=== PATIENT | male | born 1955 | race African-American/Black ===

== ENCOUNTER 2016-07-04 19:51 | Inpatient (IN) | payer OTHER ==
--- NOTE | 2016-07-04 20:10 | HP ---
COWS - Scale Resting Pulse: 0= [place] 80 or Below Sweatin=Flushed/Facial Moisture Restless Observation: 3= Extraneous Movement Pupil Size: 1= Pupils >than Normal Bone or Joint Aches: 2= Severe Diffuse Aches Runny Nose/ Eye Tearin= Runny Nose/Eyes GI Upset > 30mins: 1= Stomach Cramp Tremor Observation: 1= Tremor [place], Not Seen Yawning Observation: 1= 1-2x During Session Anxiety or Irritability: 1=Feels Anxious/Irritable Goose Flesh Skin: 3=Piloerection COWS Score: 17 Admission ROS S - HPI Chief Complaint: WITHDRAWAL SYMPTOMS Allergies/Adverse Reactions: Allergies Allergy/AdvReac Type Severity Reaction Status Date / Time Penicillins Allergy Mild Difficulty Verified 06/03/15 16:46 Breathing Fish Containing Products Allergy Rash Verified 06/03/15 16:46 [Fish Product Derivatives] History of Present Illness: 61 Y.O. MAN WITH AN EXTENSIVE HISTORY OF OPIOID DEPENDENCE IS HERE SEEKING DETOX. HE WAS LAST HERE IN 06/2015 AND REPORTS HIS LONGEST PERIOD CLEAN HAS BEEN 4 YEARS. - Ebola screening Have you traveled outside of the country in the last 21 days: No Have you had contact with anyone from an Ebola affected area: No Do you have a fever: No - Review of Systems Constitutional: Loss of Appetite, Changes in sleep EENT: reports: Tearing Respiratory: reports: Shortness of Breath Cardiac: reports: No Symptoms Reported GI: reports: No Symptoms Reported : reports: No Symptoms Reported Musculoskeletal: reports: Back Pain, Other (PAIN TO B/L THIGHS) Neuro: reports: Tingling (B/L FINGERTIPS) Endocrine: reports: No Symptoms Reported Hematology: reports: No Symptoms Reported Psychiatric: reports: Orientated x3, Depressed Other Systems: Reviewed and Negative Patient History - Patient Medical History Hx Anemia: No Hx Asthma: Yes Hx Chronic Obstructive Pulmonary Disease (COPD): No Hx Cancer: No Hx Cardiac Disorders: No Hx Congestive Heart Failure: No Hx Hypertension: No Hx Hypercholesterolemia: No Hx Pacemaker: No HX Cerebrovascular Accident: No Hx Seizures: No Hx Dementia: No Hx Diabetes: No Hx Gastrointestinal Disorders: Yes (acid reflux) Hx Liver Disease: No Hx Genitourinary Disorders: No Hx Sexually Transmitted Disorders: No Hx Renal Disease (ESRD): No Hx Thyroid Disease: No Hx Human Immunodeficiency Virus (HIV): Yes (since 2004) Hx Hepatitis C: Yes (NOT TREATED) Hx Depression: Yes Hx Suicide Attempt: No Hx Bipolar Disorder: Yes Hx Schizophrenia: No - Patient Surgical History Past Surgical History: Yes Hx Neurologic Surgery: No Hx Cataract Extraction: No Hx Cardiac Surgery: No Hx Lung Surgery: No Hx Breast Surgery: No Hx Breast Biopsy: No Hx Abdominal Surgery: No Hx Appendectomy: Yes (at age of 5) Hx Cholecystectomy: No Hx Genitourinary Surgery: No Hx Section: No Hx Orthopedic Surgery: No Anesthesia Reaction: No - PPD History Previous Implant?: Yes Documented Results: Negative w/proof Implanted On Prior R Admission?: Yes Date: 06/05/15 Results: 0 PPD to be Administered?: Yes - Reproductive History Patient is a Female of Child Bearing Age (11 -55 yrs old): No - Smoking Cessation Smoking history: Current every day smoker Have you smoked in the past 12 months: Yes Aproximately how many cigarettes per day: 20 Hx Chewing Tobacco Use: No Initiated information on smoking cessation: Yes 'Breaking Loose' booklet given: 07/04/16 - Substance & Tx. History Hx Alcohol Use: No Hx Substance Use: Yes Substance Use Type: Cocaine, Heroin Hx Substance Use Treatment: Yes (DETOX AND REHAB ) - Substances Abused Heroin Route: Injection Frequency: Daily Amount used: 3 BAGS Age of first use: 15 Date of Last Use: 07/04/16 Cocaine Route: Injection Frequency: Daily Amount used: $50 Age of first use: 20 Date of Last Use: 07/04/16 Family Disease History - Family Disease History Family Disease History: CA: Father (RECTAL ), Mother ( ) Admission Physical Exam BHS - Vital Signs Vital Signs: Last Vital Signs Temp Pulse Resp BP Pulse Ox 99.3 F 78 18 146/66 07/04/16 20:11 07/04/16 20:11 07/04/16 20:11 07/04/16 20:11 - Physical General Appearance: Yes: Appropriately Dressed, Thin, Anxious HEENTM: Yes: Normocephalic, Normal Voice Respiratory: Yes: Chest Non-Tender, Lungs Clear, Normal Breath Sounds, No Respiratory Distress, No Accessory Muscle Use Neck: Yes: No masses,lesions,Nodules, Trachea in good position Breast: Yes: Breast Exam Deferred Cardiology: Yes: Regular Rhythm, Regular Rate Abdominal: Yes: Flat, Soft Genitourinary: Yes: Other (NO COMPLAINTS REPORTED) Back: Yes: Normal Inspection Musculoskeletal: Yes: Back pain Extremities: Yes: Normal Inspection, Normal Range of Motion, Non-Tender Neurological: Yes: buyer grain II-XII NML intact, Fully Oriented, Alert, Normal Mood/ Affect, Normal Response Integumentary: Yes: Track [place] Lymphatic: Yes: Within Normal Limits - Diagnostic (1) Cocaine dependence Current Visit: Yes Status: Chronic Qualifiers: Substance use status: uncomplicated Qualified Code(s): F14.20 - Cocaine dependence, uncomplicated (2) GERD (gastroesophageal reflux disease) Current Visit: Yes Status: Chronic (3) HIV disease Current Visit: Yes Status: Chronic (4) Hepatitis C Current Visit: Yes Status: Chronic Qualifiers: Viral hepatitis chronicity: unspecified Hepatic coma status: without hepatic coma Qualified Code(s): B19.20 - Unspecified viral hepatitis C without hepatic coma (5) Nicotine dependence Current Visit: Yes Status: Chronic Qualifiers: Nicotine product type: unspecified Substance use status: uncomplicated Qualified Code(s): F17.200 - Nicotine dependence, unspecified, uncomplicated (6) Opioid dependence with withdrawal Current Visit: Yes Status: Chronic Cleared for Admission S - Detox or Rehab S Level of Care: Medically Managed Detox Regimen/Protocol: Methadone (0) BHS Breath Alcohol Content Breath Alcohol Content: 0
[2016-07-04 20:13] VITALS: BMI 23.1
[2016-07-04] MEDS ORDERED: ACETAMINOPHEN 325 MG TABLET (FP) PO PRN (20:29)
[2016-07-04] MEDS ORDERED: METHADONE HCL 10 MG TABLET (FOR DETOX USE ONLY) PO ONE ×2 (20:29→23:00)
[2016-07-04] MEDS ORDERED: P-EPHED 60MG/TRIPROLIDI 2.5MG TABLET PO PRN (20:29)
[2016-07-04] MEDS ORDERED: MAGNESIUM CITRATE 300 ML BOTTLE PO PRN (20:29)
[2016-07-04] MEDS ORDERED: MAG HYDROX/AL HYDROX/SIMETH 30 ML UNIT-DOSE CUP PO PRN (20:29)
[2016-07-04] MEDS ORDERED: guaiFENesin/D-METHORPHAN HB 10 ML UNIT-DOSE CUPS PO PRN (20:29)
[2016-07-04] MEDS ORDERED: LOPERAMIDE HCL 2 MG CAPSULE PO PRN (20:29)
[2016-07-04] MEDS ORDERED: MENTHOL/PHENOL 1 EACH UD MM PRN (20:29)
[2016-07-04] MEDS ORDERED: IBUPROFEN 400 MG TABLET (FP) PO PRN (20:29)
[2016-07-04] MEDS ORDERED: MAGNESIUM HYDROX 2400MG/30ML ORAL SUSPENSION 30 ML CUP PO PRN (20:29)
[2016-07-04] MEDS ORDERED: hydrOXYzine PAMOATE 50 MG CAPSULE (FP) PO PRN (20:29)
[2016-07-04] MEDS ORDERED: ALBUTEROL SO4 18 GM HFA INHALER IH PRN (20:32)
[2016-07-04] MEDS: diphenhydrAMINE HCL 50 MG CAPSULE PO PRN (21:57)
[2016-07-04] MEDS: THIAMINE HCL 100 MG TABLET (FP) PO SCH (21:58)
[2016-07-04] MEDS: diazePAM 5 MG TABLET PO PRN (21:58)
[2016-07-04] MEDS: DARUNAVIR ETHANOLATE 800 MG TAB PO SCH (21:58)
[2016-07-04] MEDS: EMTRICITABINE 200MG/TENOFOVIR 300MG PO SCH (23:45)
[2016-07-04] MEDS: RITONAVIR 100 MG TABLET PO SCH (23:45)
[2016-07-05] MEDS: RITONAVIR 100 MG TABLET PO SCH ×2 (00:14→22:06)
[2016-07-05] MEDS: EMTRICITABINE 200MG/TENOFOVIR 300MG PO SCH ×2 (00:14→22:06)
--- NOTE | 2016-07-05 08:36 | CONSULT ---
[facility] Psychiatric Consult - Data Date of interview: 07/05/16 Admission source: [facility] Identifying data: This is 61 years old male with no psychiatric hospitalization history intoxicated with Cocaine, Opioiuds, Xanax and Nicotine Substance Abuse History: Smoking history: Current every day smoker. Have you smoked in the past 12 months: Yes. Aproximately how many cigarettes per day: 20. Hx Chewing Tobacco Use: No. Initiated information on smoking cessation: Yes. 'Breaking Loose' booklet given: 07/04/16. - Substance & Tx. History. Hx Alcohol Use: No. Hx Substance Use: Yes. Substance Use Type: Cocaine, Heroin. Hx Substance Use Treatment: Yes (DETOX AND REHAB ). - Substances Abused. Heroin. Route: Injection. Frequency: Daily. Amount used: 3 BAGS. Age of first use: 15. Date of Last Use: 07/04/16. Cocaine. Route: Injection. Frequency: Daily. Amount used: $50. Age of first use: 20. Date of Last Use: 07/04/16 Medical History: GERD, MMTP history, HepC+, hiv, Asthma Psychiatric History: Patient reports history of MDD, reports taking prior to admissiomn: Seroquel 50mg po qhs Physical/Sexual Abuse/Trauma History: Denies Additional Comment: Seroquel 50mg po qhs Mental Status Exam - Mental Status Exam Alert and Oriented to: Person Cognitive Function: Fair Patient Appearance: Unkempt Mood: Sad Affect: Flat Patient Behavior: Sedated Speech Pattern: Delayed Voice Loudness: Mildly Soft/Quiet Thought Process: Circumstantial Thought Disorder: Being Controlled Hallucinations: Denies Suicidal Ideation: Denies Homicidal Ideation: Denies Insight/Judgement: Fair Sleep: Difficulty falling asleep Appetite: Fair Muscle strength/Tone: Mild Hypotonicity Gait/Station: Shuffling Additional Comments: Seroquel 50mg po qhs Psychiatric Findings - Problem List ([place] 1, 2,3) (1) Cocaine dependence Current Visit: Yes Status: Chronic Qualifiers: Substance use status: uncomplicated Qualified Code(s): F14.20 - Cocaine dependence, uncomplicated (2) Nicotine dependence Current Visit: Yes Status: Chronic Qualifiers: Nicotine product type: unspecified Substance use status: uncomplicated Qualified Code(s): F17.200 - Nicotine dependence, unspecified, uncomplicated (3) Opioid dependence with withdrawal Current Visit: Yes Status: Chronic (4) Alcohol dependence with uncomplicated withdrawal Current Visit: No Status: Acute (5) Mood disorder Current Visit: No Status: Acute (6) Opioid dependence on agonist therapy Current Visit: No Status: Acute (7) Sedative, hypnotic or anxiolytic abuse Current Visit: No Status: Acute (8) Major depressive disorder Current Visit: No Status: Chronic (9) Methadone maintenance therapy patient Current Visit: No Status: Chronic - Initial Treatment Plan Initial Treatment Plan: Seroquel 50mg po qhs
[2016-07-05] MEDS ORDERED: METHADONE HCL 10 MG TABLET (FOR DETOX USE ONLY) PO ONE (10:00)
[2016-07-05 10:11] LABS: URINE APPEARANCE CLEAR; URINE BILIRUBIN NEGATIVE (NEGATIVE); URINE BLOOD NEGATIVE (NEGATIVE); URINE COLOR YELLOW; URINE GLUCOSE (UA) NEGATIVE (NEGATIVE); URINE KETONE NEGATIVE (NEGATIVE); URINE LEUK ESTERASE NEGATIVE (NEGATIVE); URINE NITRITE NEGATIVE (NEGATIVE); URINE PROTEIN NEGATIVE (NEGATIVE); URINE UROBILINOGEN 2.0 E.U/dl E.U./dl (0.2-1.0)
[2016-07-05 10:13] LABS: MCH 31.8 pg (25.7-33.7); MCHC 34.9 g/dl (32.0-35.9); MEAN CELL VOLUME 91.1 fl (80-96); MEAN PLT VOLUME 7.6 fl (7.5-11.1); PLATELET COUNT 153 K/MM3 (134-434); RDW 12.7 % (11.9-15.9); WHITE BLOOD COUNT 3.1 K/mm3 (4.0-10.0)
[2016-07-05 10:39] LABS: ALBUMIN 2.9 g/dl (3.4-5.0); ALK PHOS 84 U/L (45-117); ANION GAP 6 (8-16); BILIRUBIN,TOTAL 0.5 mg/dL (0.2-1.0); CALCIUM 8.1 mg/dL (8.5-10.1); CO2 30 mmol/L (21-32); COCKROFT - GAULT 62.15; CREATININE 1.2 mg/dL (0.7-1.3); GLUCOSE,RANDOM 75 mg/dL (74-106); SGOT/AST 45 U/L (15-37); SGPT/ALT 28 U/L (12-78); TOT PROT 6.9 g/dl (6.4-8.2)
[2016-07-05] MEDS: RANITIDINE HCL 150 MG TABLET (FP) PO SCH (11:09)
[2016-07-05] MEDS: PRENATAL VITAMINS W/ FOLIC ACID TABLET (FP) PO SCH (11:10)
[2016-07-05] MEDS: NICOTINE 21 MG/24 HOURS TOPICAL PATCH TD SCH (11:11)
--- NOTE | 2016-07-05 11:34 | PN ---
BHS COWS - Scale Resting Pulse: 1= [place] 81-100 Sweatin=Flushed/Facial Moisture Restless Observation: 0= Sits Still Pupil Size: 0= Normal to Room Light Bone or Joint Aches: 2= Severe Diffuse Aches Runny Nose/ Eye Tearin= None GI Upset > 30mins: 1= Stomach Cramp Tremor Observation of Outstretched Hands: 2= Slight Tremor Visible Yawning Observation: 2= >3x During Session Anxiety or Irritability: 2=Irritable/Anxious Goose Flesh Skin: 0=Smooth Skin COWS Score: 12 S Progress Note (SOAP) Subjective: sleepy tired sweats agitation interrupted sleep Objective: 07/05/16 11:32 Vital Signs Temperature 98.1 F 07/05/16 09:29 Pulse Rate 88 07/05/16 09:29 Respiratory Rate 16 07/05/16 09:29 Blood Pressure 151/92 07/05/16 09:29 O2 Sat by Pulse Oximetry (%) Laboratory Tests 07/05/16 07/05/16 07/05/16 07:00 07:00 08:00 WBC 3.1 L RBC 4.62 Hgb 14.7 D Hct 42.1 MCV 91.1 MCHC 34.9 RDW 12.7 Plt Count 153 MPV 7.6 D Sodium 142 Potassium 3.8 Chloride 106 Carbon Dioxide 30 Anion Gap 6 L BUN 16 Creatinine 1.2 Creat Clearance w eGFR > 60 Random Glucose 75 Calcium 8.1 L Total Bilirubin 0.5 D AST 45 H D ALT 28 Alkaline Phosphatase 84 D Total Protein 6.9 Albumin 2.9 L Urine Color Yellow Urine Appearance Clear Urine pH 6.0 Urine Protein Negative Urine Glucose (UA) Negative Urine Ketones Negative Urine Blood Negative Urine Nitrite Negative Urine Bilirubin Negative Urine Urobilinogen 2.0 e.u/dl Ur Leukocyte Esterase Negative awake/alert ambulating no acute distress Assessment: 07/05/16 11:33 withdrawal sx Plan: continue detox increase fluids
--- NOTE | 2016-07-05 17:36 | EKG ---
Test Reason : Blood Pressure : / mmHG Vent. Rate : 065 BPM Atrial Rate : 065 BPM P-R Int : 148 ms QRS Dur : 086 ms QT Int : 430 ms P-R-T Axes : 070 060 033 degrees QTc Int : 447 ms NORMAL SINUS RHYTHM NORMAL ECG NO PREVIOUS ECGS AVAILABLE Confirmed by FINN MATHIS MD ([id number]) on 07/05/2016 5:36:19 PM Referred By: Confirmed By:FINN MATHIS MD
[2016-07-05] MEDS: diazePAM 5 MG TABLET PO PRN ×2 (17:56→22:06)
[2016-07-05] MEDS: DARUNAVIR ETHANOLATE 800 MG TAB PO SCH (22:06)
[2016-07-05] MEDS: QUEtiapine FUMARATE 50 MG TABLET PO SCH (22:06)
[2016-07-05] MEDS: THIAMINE HCL 100 MG TABLET (FP) PO SCH (22:06)
[2016-07-06] MEDS ORDERED: METHADONE HCL 5 MG TABLET (FOR DETOX USE ONLY) PO ONE (10:00)
--- NOTE | 2016-07-06 10:25 | PN ---
S COWS - Scale Resting Pulse: 0= [place] 80 or Below Sweatin= Chills/Flushing Restless Observation: 3= Extraneous Movement Pupil Size: 1= Pupils >than Normal Bone or Joint Aches: 2= Severe Diffuse Aches Runny Nose/ Eye Tearin= Runny Nose/Eyes GI Upset > 30mins: 2= Nausea/Diarrhea Tremor Observation of Outstretched Hands: 2= Slight Tremor Visible Yawning Observation: 1= 1-2x During Session Anxiety or Irritability: 2=Irritable/Anxious Goose Flesh Skin: 0=Smooth Skin COWS Score: 16 S Progress Note (SOAP) Subjective: ALERT,IRRITABLE,INTERRUPTED SLEEP,TREMOR,PAIN IN THE BODY AND BACK Objective: 07/06/16 10:23 Vital Signs Temperature 97.5 F L 07/06/16 06:33 Pulse Rate 79 07/06/16 06:33 Respiratory Rate 16 07/06/16 06:33 Blood Pressure 110/72 07/06/16 06:33 O2 Sat by Pulse Oximetry (%) EKG NSR,NORMAL ECG Laboratory Last Values WBC 3.1 K/mm3 (4.0-10.0) L 07/05/16 07:00 RBC 4.62 M/mm3 (4.00-5.60) 07/05/16 07:00 Hgb 14.7 GM/dL (11.7-16.9) D 07/05/16 07:00 Hct 42.1 % (35.4-49) 07/05/16 07:00 MCV 91.1 fl (80-96) 07/05/16 07:00 MCHC 34.9 g/dl (32.0-35.9) 07/05/16 07:00 RDW 12.7 % (11.9-15.9) 07/05/16 07:00 Plt Count 153 K/MM3 (134-434) 07/05/16 07:00 MPV 7.6 fl (7.5-11.1) D 07/05/16 07:00 Sodium 142 mmol/L (136-145) 07/05/16 07:00 Potassium 3.8 mmol/L (3.5-5.1) 07/05/16 07:00 Chloride 106 mmol/L (98-107) 07/05/16 07:00 Carbon Dioxide 30 mmol/L (21-32) 07/05/16 07:00 Anion Gap 6 (8-16) L 07/05/16 07:00 BUN 16 mg/dL (7-18) 07/05/16 07:00 Creatinine 1.2 mg/dL (0.7-1.3) 07/05/16 07:00 Creat Clearance w eGFR > 60 (>60) 07/05/16 07:00 Random Glucose 75 mg/dL (74-106) 07/05/16 07:00 Calcium 8.1 mg/dL (8.5-10.1) L 07/05/16 07:00 Total Bilirubin 0.5 mg/dL (0.2-1.0) D 07/05/16 07:00 AST 45 U/L (15-37) H D 07/05/16 07:00 ALT 28 U/L (12-78) 07/05/16 07:00 Alkaline Phosphatase 84 U/L (45-117) D 07/05/16 07:00 Total Protein 6.9 g/dl (6.4-8.2) 07/05/16 07:00 Albumin 2.9 g/dl (3.4-5.0) L 07/05/16 07:00 Urine Color Yellow 07/05/16 08:00 Urine Appearance Clear 07/05/16 08:00 Urine pH 6.0 (5.0-8.0) 07/05/16 08:00 Urine Protein Negative (NEGATIVE) 07/05/16 08:00 Urine Glucose (UA) Negative (NEGATIVE) 07/05/16 08:00 Urine Ketones Negative (NEGATIVE) 07/05/16 08:00 Urine Blood Negative (NEGATIVE) 07/05/16 08:00 Urine Nitrite Negative (NEGATIVE) 07/05/16 08:00 Urine Bilirubin Negative (NEGATIVE) 07/05/16 08:00 Urine Urobilinogen 2.0 e.u/dl E.U./dl (0.2-1.0) 07/05/16 08:00 Ur Leukocyte Esterase Negative (NEGATIVE) 07/05/16 08:00 RPR Titer Nonreactive (NONREACTIVE) 07/05/16 07:00 Assessment: 07/06/16 10:24 WITHDRAWAL SYMPTOM Plan: CONTINUE DETOX
[2016-07-06] MEDS: NICOTINE 21 MG/24 HOURS TOPICAL PATCH TD SCH (11:03)
[2016-07-06] MEDS: PRENATAL VITAMINS W/ FOLIC ACID TABLET (FP) PO SCH (11:03)
[2016-07-06] MEDS: RANITIDINE HCL 150 MG TABLET (FP) PO SCH (11:04)
[2016-07-06] MEDS: diazePAM 5 MG TABLET PO PRN ×2 (17:26→22:05)
[2016-07-06] MEDS: THIAMINE HCL 100 MG TABLET (FP) PO SCH (22:05)
[2016-07-06] MEDS: QUEtiapine FUMARATE 50 MG TABLET PO SCH (22:05)
[2016-07-06] MEDS: EMTRICITABINE 200MG/TENOFOVIR 300MG PO SCH (22:05)
[2016-07-06] MEDS: RITONAVIR 100 MG TABLET PO SCH (22:05)
[2016-07-06] MEDS: DARUNAVIR ETHANOLATE 800 MG TAB PO SCH (22:05)
[2016-07-07] MEDS ORDERED: METHADONE HCL 5 MG TABLET (FOR DETOX USE ONLY) PO ONE (10:00)
[2016-07-07] MEDS: PRENATAL VITAMINS W/ FOLIC ACID TABLET (FP) PO SCH (10:43)
[2016-07-07] MEDS: NICOTINE 21 MG/24 HOURS TOPICAL PATCH TD SCH (10:43)
[2016-07-07] MEDS: RANITIDINE HCL 150 MG TABLET (FP) PO SCH (10:43)
[2016-07-07] MEDS: diazePAM 5 MG TABLET PO PRN (10:47)
--- NOTE | 2016-07-07 12:43 | PN ---
BHS Progress Note (SOAP) Subjective: Shakes, sweats,N/V and muscle aches Objective: 07/07/16 12:42 Vital Signs - 8 hr 07/07/16 07/07/16 06:00 10:36 Temperature 95.9 F L 96.4 F L Pulse Rate 74 73 Respiratory 16 18 Rate Blood Pressure 119/74 131/87 Laboratory Last Values WBC 3.1 K/mm3 (4.0-10.0) L 07/05/16 07:00 RBC 4.62 M/mm3 (4.00-5.60) 07/05/16 07:00 Hgb 14.7 GM/dL (11.7-16.9) D 07/05/16 07:00 Hct 42.1 % (35.4-49) 07/05/16 07:00 MCV 91.1 fl (80-96) 07/05/16 07:00 MCHC 34.9 g/dl (32.0-35.9) 07/05/16 07:00 RDW 12.7 % (11.9-15.9) 07/05/16 07:00 Plt Count 153 K/MM3 (134-434) 07/05/16 07:00 MPV 7.6 fl (7.5-11.1) D 07/05/16 07:00 Sodium 142 mmol/L (136-145) 07/05/16 07:00 Potassium 3.8 mmol/L (3.5-5.1) 07/05/16 07:00 Chloride 106 mmol/L (98-107) 07/05/16 07:00 Carbon Dioxide 30 mmol/L (21-32) 07/05/16 07:00 Anion Gap 6 (8-16) L 07/05/16 07:00 BUN 16 mg/dL (7-18) 07/05/16 07:00 Creatinine 1.2 mg/dL (0.7-1.3) 07/05/16 07:00 Creat Clearance w eGFR > 60 (>60) 07/05/16 07:00 Random Glucose 75 mg/dL (74-106) 07/05/16 07:00 Calcium 8.1 mg/dL (8.5-10.1) L 07/05/16 07:00 Total Bilirubin 0.5 mg/dL (0.2-1.0) D 07/05/16 07:00 AST 45 U/L (15-37) H D 07/05/16 07:00 ALT 28 U/L (12-78) 07/05/16 07:00 Alkaline Phosphatase 84 U/L (45-117) D 07/05/16 07:00 Total Protein 6.9 g/dl (6.4-8.2) 07/05/16 07:00 Albumin 2.9 g/dl (3.4-5.0) L 07/05/16 07:00 Urine Color Yellow 07/05/16 08:00 Urine Appearance Clear 07/05/16 08:00 Urine pH 6.0 (5.0-8.0) 07/05/16 08:00 Ur Specific [place] 1.020 (1.005-1.025) 07/05/16 08:00 Urine Protein Negative (NEGATIVE) 07/05/16 08:00 Urine Glucose (UA) Negative (NEGATIVE) 07/05/16 08:00 Urine Ketones Negative (NEGATIVE) 07/05/16 08:00 Urine Blood Negative (NEGATIVE) 07/05/16 08:00 Urine Nitrite Negative (NEGATIVE) 07/05/16 08:00 Urine Bilirubin Negative (NEGATIVE) 07/05/16 08:00 Urine Urobilinogen 2.0 e.u/dl E.U./dl (0.2-1.0) 07/05/16 08:00 Ur Leukocyte Esterase Negative (NEGATIVE) 07/05/16 08:00 RPR Titer Nonreactive (NONREACTIVE) 07/05/16 07:00 Labs noted Assessment: 07/07/16 12:42 withdrawal sx Plan: continue detox
[2016-07-07] MEDS: THIAMINE HCL 100 MG TABLET (FP) PO SCH (22:23)
[2016-07-07] MEDS: QUEtiapine FUMARATE 50 MG TABLET PO SCH (22:23)
[2016-07-07] MEDS: diphenhydrAMINE HCL 50 MG CAPSULE PO PRN (22:23)
[2016-07-07] MEDS: DARUNAVIR ETHANOLATE 800 MG TAB PO SCH (22:23)
[2016-07-07] MEDS: RITONAVIR 100 MG TABLET PO SCH (22:26)
[2016-07-07] MEDS: EMTRICITABINE 200MG/TENOFOVIR 300MG PO SCH (22:26)
[2016-07-08] MEDS ORDERED: METHADONE HCL 10 MG TABLET (FOR DETOX USE ONLY) PO ONE (10:00)
[2016-07-08] MEDS: RANITIDINE HCL 150 MG TABLET (FP) PO SCH (11:00)
[2016-07-08] MEDS: NICOTINE 21 MG/24 HOURS TOPICAL PATCH TD SCH (11:00)
[2016-07-08] MEDS: PRENATAL VITAMINS W/ FOLIC ACID TABLET (FP) PO SCH (11:03)
--- NOTE | 2016-07-08 11:25 | PN ---
BHS Progress Note (SOAP) Subjective: Sweating,restless Objective: 07/08/16 11:24 Vital Signs - 8 hr 07/08/16 07/08/16 07/08/16 03:30 06:00 09:40 Temperature 97.7 F 96.8 F L Pulse Rate 81 91 H Respiratory 18 16 18 Rate Blood Pressure 126/73 120/76 Laboratory Last Values WBC 3.1 K/mm3 (4.0-10.0) L 07/05/16 07:00 RBC 4.62 M/mm3 (4.00-5.60) 07/05/16 07:00 Hgb 14.7 GM/dL (11.7-16.9) D 07/05/16 07:00 Hct 42.1 % (35.4-49) 07/05/16 07:00 MCV 91.1 fl (80-96) 07/05/16 07:00 MCHC 34.9 g/dl (32.0-35.9) 07/05/16 07:00 RDW 12.7 % (11.9-15.9) 07/05/16 07:00 Plt Count 153 K/MM3 (134-434) 07/05/16 07:00 MPV 7.6 fl (7.5-11.1) D 07/05/16 07:00 Sodium 142 mmol/L (136-145) 07/05/16 07:00 Potassium 3.8 mmol/L (3.5-5.1) 07/05/16 07:00 Chloride 106 mmol/L (98-107) 07/05/16 07:00 Carbon Dioxide 30 mmol/L (21-32) 07/05/16 07:00 Anion Gap 6 (8-16) L 07/05/16 07:00 BUN 16 mg/dL (7-18) 07/05/16 07:00 Creatinine 1.2 mg/dL (0.7-1.3) 07/05/16 07:00 Creat Clearance w eGFR > 60 (>60) 07/05/16 07:00 Random Glucose 75 mg/dL (74-106) 07/05/16 07:00 Calcium 8.1 mg/dL (8.5-10.1) L 07/05/16 07:00 Total Bilirubin 0.5 mg/dL (0.2-1.0) D 07/05/16 07:00 AST 45 U/L (15-37) H D 07/05/16 07:00 ALT 28 U/L (12-78) 07/05/16 07:00 Alkaline Phosphatase 84 U/L (45-117) D 07/05/16 07:00 Total Protein 6.9 g/dl (6.4-8.2) 07/05/16 07:00 Albumin 2.9 g/dl (3.4-5.0) L 07/05/16 07:00 Urine Color Yellow 07/05/16 08:00 Urine Appearance Clear 07/05/16 08:00 Urine pH 6.0 (5.0-8.0) 07/05/16 08:00 Ur Specific [place] 1.020 (1.005-1.025) 07/05/16 08:00 Urine Protein Negative (NEGATIVE) 07/05/16 08:00 Urine Glucose (UA) Negative (NEGATIVE) 07/05/16 08:00 Urine Ketones Negative (NEGATIVE) 07/05/16 08:00 Urine Blood Negative (NEGATIVE) 07/05/16 08:00 Urine Nitrite Negative (NEGATIVE) 07/05/16 08:00 Urine Bilirubin Negative (NEGATIVE) 07/05/16 08:00 Urine Urobilinogen 2.0 e.u/dl E.U./dl (0.2-1.0) 07/05/16 08:00 Ur Leukocyte Esterase Negative (NEGATIVE) 07/05/16 08:00 RPR Titer Nonreactive (NONREACTIVE) 07/05/16 07:00 labs noted Assessment: 07/08/16 11:24 Withdrawal sx. Plan: Continue detox
[2016-07-08] MEDS: RITONAVIR 100 MG TABLET PO SCH (22:35)
[2016-07-08] MEDS: EMTRICITABINE 200MG/TENOFOVIR 300MG PO SCH (22:35)
[2016-07-08] MEDS: QUEtiapine FUMARATE 50 MG TABLET PO SCH (22:35)
[2016-07-08] MEDS: THIAMINE HCL 100 MG TABLET (FP) PO SCH (22:35)
[2016-07-08] MEDS: DARUNAVIR ETHANOLATE 800 MG TAB PO SCH (22:35)
[2016-07-08] MEDS: diphenhydrAMINE HCL 50 MG CAPSULE PO PRN (22:36)
[2016-07-09] MEDS ORDERED: METHADONE HCL 5 MG TABLET (FOR DETOX USE ONLY) PO ONE (06:00)
[2016-07-09 06:28] VITALS: TEMP 98.1
[2016-07-09] MEDS: PRENATAL VITAMINS W/ FOLIC ACID TABLET (FP) PO SCH (10:04)
[2016-07-09] MEDS: RANITIDINE HCL 150 MG TABLET (FP) PO SCH (10:04)
[2016-07-09] MEDS: NICOTINE 21 MG/24 HOURS TOPICAL PATCH TD SCH (10:38)
[2016-07-09 13:56] VITALS: BP 129/80; PULSE 88
== END 2016-07-09 13:45 | disposition home or self-care (01) | DRG 773 ==
LOC: YASAS 19:51 → Y6N 20:21
PROVIDERS: ADMIT Internal Medicine Addiction Medicine; ATTEND Internal Medicine Addiction Medicine
PROC: HZ2ZZZZ Detoxification Services for Substance Abuse Treatment (ICD-10-PCS; principal; 2016-07-09)
DX: F11.23 Opioid dependence with withdrawal (principal); F10.230 Alcohol dependence with withdrawal, uncomplicated; F14.20 Cocaine dependence, uncomplicated; F13.10 Sedative, hypnotic or anxiolytic abuse, uncomplicated; F39 Unspecified mood [affective] disorder; F31.9 Bipolar disorder, unspecified; B19.20 Unspecified viral hepatitis C without hepatic coma; K21.9 Gastro-esophageal reflux disease without esophagitis; J45.909 Unspecified asthma, uncomplicated; Z21 Asymptomatic human immunodeficiency virus [HIV] infection status
CPT/HCPCS: 36415; 80053; 81003; 85027; 86593; 93005; 93010

== ENCOUNTER 2017-01-06 18:28 | Inpatient (IN) | payer OTHER ==
--- NOTE | 2017-01-06 20:55 | HP ---
[facility] Rehab Assess/Revision - Admission History Admitted to Rehab from: [facility] Date of Admission to Rehab: 01/06/2017 - Findings Detox History & Physical reviewed: Yes Concur with findings: Yes Inpatient Rehab Admission - Initial Determination Are CD services needed?: Yes Free of communicable disease: Yes Not in need of hospitalization: Yes - Rehab Admission Criteria Previous failed treatment: Yes Poor recovery environment: Yes Comorbidities: Yes Lacks judgement: Yes Patient is meeting Inpatient Rehab admission criteria:: Yes
[2017-01-06] MEDS ORDERED: MAG HYDROX/AL HYDROX/SIMETH 30 ML UNIT-DOSE CUP PO PRN (20:59)
[2017-01-06] MEDS ORDERED: ACETAMINOPHEN 325 MG TABLET (FP) PO PRN (20:59)
[2017-01-06] MEDS ORDERED: MAGNESIUM CITRATE 300 ML BOTTLE PO PRN (20:59)
[2017-01-06] MEDS ORDERED: MAGNESIUM HYDROX 2400MG/30ML ORAL SUSPENSION 30 ML CUP PO PRN (20:59)
[2017-01-06] MEDS ORDERED: guaiFENesin/D-METHORPHAN HB 10 ML UNIT-DOSE CUPS PO PRN (20:59)
[2017-01-06] MEDS ORDERED: MENTHOL/PHENOL 1 EACH UD MM PRN (20:59)
[2017-01-06] MEDS ORDERED: LOPERAMIDE HCL 2 MG CAPSULE PO PRN (20:59)
[2017-01-06] MEDS ORDERED: P-EPHED 60MG/TRIPROLIDI 2.5MG TABLET PO PRN (20:59)
[2017-01-06] MEDS ORDERED: hydrOXYzine PAMOATE 50 MG CAPSULE (FP) PO PRN (20:59)
[2017-01-06] MEDS ORDERED: NICOTINE POLACRILEX 2 MG GUM BUC PRN (20:59)
[2017-01-06] MEDS ORDERED: IBUPROFEN 400 MG TABLET (FP) PO PRN (20:59)
[2017-01-06] MEDS ORDERED: ALBUTEROL SO4 18 GM HFA INHALER IH PRN (21:00)
[2017-01-06] MEDS: THIAMINE HCL 100 MG TABLET (FP) PO SCH (22:14)
[2017-01-06] MEDS: SULFAMETHOXAZOLE/TRIMETHOPRIM 800MG/160MG D.S. TABLET PO SCH (22:14)
[2017-01-06] MEDS: DARUNAVIR ETHANOLATE 800 MG TAB PO SCH (22:14)
[2017-01-06] MEDS: RANITIDINE HCL 150 MG TABLET (FP) PO SCH (22:14)
[2017-01-06] MEDS: EMTRICITABINE 200MG/TENOFOVIR 300MG PO SCH (22:15)
[2017-01-06] MEDS: RITONAVIR 100 MG TABLET PO SCH (22:15)
[2017-01-06] MEDS: BUDESONIDE/FORMETEROL FUMARATE 80/4.5 mcg INHALER IH SCH (22:36)
[2017-01-07] MEDS ORDERED: METHADONE HCL 40 MG DISPERSABLE TABLET PO SCH (06:00)
[2017-01-07] MEDS ORDERED: METHADONE HCL 40 MG DISPERSABLE TABLET ONE (06:07)
[2017-01-07] MEDS ORDERED: METHADONE HCL 10 MG TABLET ONE (06:07)
[2017-01-07] MEDS: METHADONE 40 MG, METHADONE 20 MG PO SCH (06:38)
[2017-01-07] MEDS: PRENATAL VITAMINS W/ FOLIC ACID TABLET (FP) PO SCH (10:24)
[2017-01-07] MEDS: RANITIDINE HCL 150 MG TABLET (FP) PO SCH ×2 (10:24→21:56)
[2017-01-07] MEDS: NICOTINE 21 MG/24 HOURS TOPICAL PATCH TD SCH (10:24)
[2017-01-07] MEDS: BUDESONIDE/FORMETEROL FUMARATE 80/4.5 mcg INHALER IH SCH ×2 (10:26→21:59)
--- NOTE | 2017-01-07 11:36 | HP ---
Psychiatrist Admission - Data Date of interview: 01/07/17 Admission source: 6N Identifying data: This is one of the several inpatient rehabilitation admission for thsi 61 yea old AA male father of 4, domiciled, residing in the [place], supported on [employer] benefits. Medical History: Hep C, HIV+, asthma GERD, allergic to PCN, smokes cigarettes 8 a day. On MMTP 60 mg. Psychiatric History: Patient reports he saw the psychiatrist about 15 years ago the first time to address depression, one psychiatric hospitalizations for 4 days at [facility] due to depression, currently on Seroquel 50 mg po hs, reports he f/u at [facility]. Physical/Sexual Abuse/Trauma History: Denies history of sexual, physical and verbal abuse. Vital Signs: Vital Signs - 24 hr 01/06/17 01/06/17 01/07/17 18:40 20:32 00:39 Temperature 97.4 F L 97.4 F L Pulse Rate 94 H 94 H Respiratory 16 18 18 Rate Blood Pressure 140/81 140/81 01/07/17 01/07/17 03:30 07:24 Temperature 98.3 F Pulse Rate 71 Respiratory 18 16 Rate Blood Pressure 103/67 Allergies/Adverse Reactions: Allergies Allergy/AdvReac Type Severity Reaction Status Date / Time Penicillins Allergy Mild Difficulty Verified 06/03/15 16:46 Breathing Fish Containing Products Allergy Rash Verified 06/03/15 16:46 [Fish Product Derivatives] Date of last physical exam: 01/03/17 Concur with the findings of this exam: Yes - Substance Abuse/Tx History Hx Alcohol Use: Yes (vodka 1-2 pints a day) Hx Substance Use: Yes Substance Use Type: Cocaine ($100 daily ), Heroin (injecting daily $100) Hx Substance Use Treatment: Yes Mental Status Exam - Mental Status Exam Alert and Oriented to: Time, Place, Person Cognitive Function: Grossly Intact Patient Appearance: Well Groomed Mood: Hopeful Affect: Appropriate, Mood Congruent Patient Behavior: Appropriate, Cooperative Speech Pattern: Clear, Appropriate Voice Loudness: Normal Thought Process: Intact, Goal Oriented Thought Disorder: Not Present Hallucinations: Denies Suicidal Ideation: Denies Homicidal Ideation: Denies Insight/Judgement: Fair Sleep: Fair Appetite: Fair Muscle strength/Tone: Normal Gait/Station: Normal Psychiatric Findings - Problem List ([place] 1, 2,3) (1) HIV disease Current Visit: Yes Status: Chronic (2) Methadone maintenance therapy patient Current Visit: Yes Status: Chronic Comment: 60 mg po verification pending (3) Mood disorder Current Visit: No Status: Acute (4) Asthma Current Visit: No Status: Chronic Qualifiers: Asthma severity: mild Asthma persistence: intermittent Asthma complication type: unspecified Qualified Code(s): J45.20 - Mild intermittent asthma, uncomplicated; J45.20 - Mild intermittent asthma, uncomplicated; J45.20 - Mild intermittent asthma, uncomplicated (5) Cocaine dependence Current Visit: No Status: Chronic Qualifiers: Substance use status: uncomplicated Qualified Code(s): F14.20 - Cocaine dependence, uncomplicated; F14.20 - Cocaine dependence, uncomplicated; F14.20 - Cocaine dependence, uncomplicated (6) Hepatitis C Current Visit: No Status: Chronic Qualifiers: Viral hepatitis chronicity: chronic (7) Nicotine dependence Current Visit: No Status: Chronic Qualifiers: Nicotine product type: cigarettes Substance use status: uncomplicated Qualified Code(s): F17.210 - Nicotine dependence, cigarettes, uncomplicated; F17.210 - Nicotine dependence, cigarettes, uncomplicated (8) Opioid dependence Current Visit: Yes Status: Acute - Initial Treatment Plan Initial Treatment Plan: Will continue Seroquel, monitor progress as needed.
[2017-01-07] MEDS: DARUNAVIR ETHANOLATE 800 MG TAB PO SCH (21:56)
[2017-01-07] MEDS: THIAMINE HCL 100 MG TABLET (FP) PO SCH (21:56)
[2017-01-07] MEDS: SULFAMETHOXAZOLE/TRIMETHOPRIM 800MG/160MG D.S. TABLET PO SCH (21:56)
[2017-01-07] MEDS: QUEtiapine FUMARATE 50 MG TABLET PO SCH (21:58)
[2017-01-07] MEDS: RITONAVIR 100 MG TABLET PO SCH (22:29)
[2017-01-07] MEDS: EMTRICITABINE 200MG/TENOFOVIR 300MG PO SCH (22:29)
[2017-01-08] MEDS ORDERED: METHADONE HCL 10 MG TABLET ONE (04:19)
[2017-01-08] MEDS ORDERED: METHADONE HCL 40 MG DISPERSABLE TABLET ONE (04:19)
[2017-01-08] MEDS: METHADONE 40 MG, METHADONE 20 MG PO SCH (06:20)
[2017-01-08] MEDS: BUDESONIDE/FORMETEROL FUMARATE 80/4.5 mcg INHALER IH SCH ×2 (10:29→21:36)
[2017-01-08] MEDS: PRENATAL VITAMINS W/ FOLIC ACID TABLET (FP) PO SCH (10:29)
[2017-01-08] MEDS: RANITIDINE HCL 150 MG TABLET (FP) PO SCH ×2 (10:29→21:35)
[2017-01-08] MEDS: NICOTINE 21 MG/24 HOURS TOPICAL PATCH TD SCH (10:30)
[2017-01-08] MEDS: DARUNAVIR ETHANOLATE 800 MG TAB PO SCH (21:35)
[2017-01-08] MEDS: RITONAVIR 100 MG TABLET PO SCH (21:35)
[2017-01-08] MEDS: EMTRICITABINE 200MG/TENOFOVIR 300MG PO SCH (21:35)
[2017-01-08] MEDS: THIAMINE HCL 100 MG TABLET (FP) PO SCH (21:35)
[2017-01-08] MEDS: SULFAMETHOXAZOLE/TRIMETHOPRIM 800MG/160MG D.S. TABLET PO SCH (21:35)
[2017-01-08] MEDS: QUEtiapine FUMARATE 50 MG TABLET PO SCH (21:36)
[2017-01-09] MEDS ORDERED: METHADONE HCL 10 MG TABLET ONE (03:17)
[2017-01-09] MEDS ORDERED: METHADONE HCL 40 MG DISPERSABLE TABLET ONE (03:17)
[2017-01-09] MEDS: METHADONE 40 MG, METHADONE 20 MG PO SCH (06:34)
[2017-01-09] MEDS: BUDESONIDE/FORMETEROL FUMARATE 80/4.5 mcg INHALER IH SCH ×2 (10:25→22:14)
[2017-01-09] MEDS: RANITIDINE HCL 150 MG TABLET (FP) PO SCH ×2 (10:25→21:36)
[2017-01-09] MEDS: PRENATAL VITAMINS W/ FOLIC ACID TABLET (FP) PO SCH (10:25)
[2017-01-09] MEDS: NICOTINE 21 MG/24 HOURS TOPICAL PATCH TD SCH (10:27)
[2017-01-09] MEDS ORDERED: CYCLOBENZAPRINE HCL 10 MG TABLET (FP) PO PRN (15:18)
[2017-01-09] MEDS ORDERED: METHADONE HCL 40 MG DISPERSABLE TABLET PO SCH (15:21)
--- NOTE | 2017-01-09 15:24 | PN ---
S Progress Note (SOAP) Subjective: c/o trauma to left side of back now has constant pain in this area x2 months, methadone dose making him drowsy Objective: 01/09/17 15:22 Vital Signs - 24 hr 01/09/17 01/09/17 00:30 03:30 Respiratory 18 18 Rate tender on bone left side of back, a and ox3 moving without assistance Assessment: 01/09/17 15:23 back pain s/p trauam, sedation caused by methadone Plan: lidoderm patch for back pain, decrease methadone dose to 50mg daily as per patient request. flexeril prn may be given if needed by nurse
[2017-01-09] MEDS ORDERED: METHADONE 40 MG, METHADONE 10 MG PO ONE (16:45)
[2017-01-09] MEDS: LIDOCAINE 5% TOPICAL PATCH TP SCH (17:21)
[2017-01-09] MEDS: SULFAMETHOXAZOLE/TRIMETHOPRIM 800MG/160MG D.S. TABLET PO SCH (21:36)
[2017-01-09] MEDS: EMTRICITABINE 200MG/TENOFOVIR 300MG PO SCH (21:36)
[2017-01-09] MEDS: DARUNAVIR ETHANOLATE 800 MG TAB PO SCH (21:36)
[2017-01-09] MEDS: RITONAVIR 100 MG TABLET PO SCH (21:36)
[2017-01-09] MEDS: QUEtiapine FUMARATE 50 MG TABLET PO SCH (21:36)
[2017-01-09] MEDS: THIAMINE HCL 100 MG TABLET (FP) PO SCH (21:36)
[2017-01-09] MEDS: LIDOCAINE PATCH REMOVAL MC SCH (21:37)
[2017-01-10] MEDS ORDERED: METHADONE HCL 10 MG TABLET ONE (06:10)
[2017-01-10] MEDS ORDERED: METHADONE HCL 40 MG DISPERSABLE TABLET ONE (06:11)
[2017-01-10] MEDS: METHADONE 40 MG, METHADONE 10 MG PO SCH (06:17)
[2017-01-10] MEDS: NICOTINE 21 MG/24 HOURS TOPICAL PATCH TD SCH (10:25)
[2017-01-10] MEDS: LIDOCAINE 5% TOPICAL PATCH TP SCH (10:25)
[2017-01-10] MEDS: BUDESONIDE/FORMETEROL FUMARATE 80/4.5 mcg INHALER IH SCH ×2 (10:26→21:48)
[2017-01-10] MEDS: PRENATAL VITAMINS W/ FOLIC ACID TABLET (FP) PO SCH (10:26)
[2017-01-10] MEDS: RANITIDINE HCL 150 MG TABLET (FP) PO SCH ×2 (10:26→21:47)
[2017-01-10] MEDS: RITONAVIR 100 MG TABLET PO SCH (21:47)
[2017-01-10] MEDS: DARUNAVIR ETHANOLATE 800 MG TAB PO SCH (21:47)
[2017-01-10] MEDS: THIAMINE HCL 100 MG TABLET (FP) PO SCH (21:47)
[2017-01-10] MEDS: QUEtiapine FUMARATE 50 MG TABLET PO SCH (21:47)
[2017-01-10] MEDS: SULFAMETHOXAZOLE/TRIMETHOPRIM 800MG/160MG D.S. TABLET PO SCH (21:47)
[2017-01-10] MEDS: EMTRICITABINE 200MG/TENOFOVIR 300MG PO SCH (21:47)
[2017-01-10] MEDS: LIDOCAINE PATCH REMOVAL MC SCH (21:48)
[2017-01-11] MEDS ORDERED: METHADONE HCL 10 MG TABLET ONE (03:28)
[2017-01-11] MEDS ORDERED: METHADONE HCL 40 MG DISPERSABLE TABLET ONE (03:29)
[2017-01-11] MEDS: METHADONE 40 MG, METHADONE 10 MG PO SCH (06:45)
[2017-01-11] MEDS: LIDOCAINE 5% TOPICAL PATCH TP SCH (10:48)
[2017-01-11] MEDS: NICOTINE 21 MG/24 HOURS TOPICAL PATCH TD SCH (10:49)
[2017-01-11] MEDS: RANITIDINE HCL 150 MG TABLET (FP) PO SCH ×2 (10:50→21:59)
[2017-01-11] MEDS: PRENATAL VITAMINS W/ FOLIC ACID TABLET (FP) PO SCH (10:50)
[2017-01-11] MEDS: BUDESONIDE/FORMETEROL FUMARATE 80/4.5 mcg INHALER IH SCH ×2 (10:50→22:00)
[2017-01-11] MEDS: SULFAMETHOXAZOLE/TRIMETHOPRIM 800MG/160MG D.S. TABLET PO SCH (21:59)
[2017-01-11] MEDS: EMTRICITABINE 200MG/TENOFOVIR 300MG PO SCH (21:59)
[2017-01-11] MEDS: QUEtiapine FUMARATE 50 MG TABLET PO SCH (21:59)
[2017-01-11] MEDS: THIAMINE HCL 100 MG TABLET (FP) PO SCH (21:59)
[2017-01-11] MEDS: DARUNAVIR ETHANOLATE 800 MG TAB PO SCH (21:59)
[2017-01-11] MEDS: RITONAVIR 100 MG TABLET PO SCH (22:00)
[2017-01-11] MEDS: LIDOCAINE PATCH REMOVAL MC SCH (22:02)
[2017-01-12] MEDS ORDERED: METHADONE HCL 10 MG TABLET ONE (03:20)
[2017-01-12] MEDS ORDERED: METHADONE HCL 40 MG DISPERSABLE TABLET ONE (03:21)
[2017-01-12] MEDS: METHADONE 40 MG, METHADONE 10 MG PO SCH (07:00)
[2017-01-12] MEDS: NICOTINE 21 MG/24 HOURS TOPICAL PATCH TD SCH (10:30)
[2017-01-12] MEDS: BUDESONIDE/FORMETEROL FUMARATE 80/4.5 mcg INHALER IH SCH ×2 (10:30→21:44)
[2017-01-12] MEDS: LIDOCAINE 5% TOPICAL PATCH TP SCH (10:30)
[2017-01-12] MEDS: RANITIDINE HCL 150 MG TABLET (FP) PO SCH ×2 (10:30→21:43)
[2017-01-12] MEDS: PRENATAL VITAMINS W/ FOLIC ACID TABLET (FP) PO SCH (10:30)
[2017-01-12] MEDS: QUEtiapine FUMARATE 50 MG TABLET PO SCH (21:43)
[2017-01-12] MEDS: THIAMINE HCL 100 MG TABLET (FP) PO SCH (21:43)
[2017-01-12] MEDS: DARUNAVIR ETHANOLATE 800 MG TAB PO SCH (21:43)
[2017-01-12] MEDS: RITONAVIR 100 MG TABLET PO SCH (21:43)
[2017-01-12] MEDS: EMTRICITABINE 200MG/TENOFOVIR 300MG PO SCH (21:43)
[2017-01-12] MEDS: SULFAMETHOXAZOLE/TRIMETHOPRIM 800MG/160MG D.S. TABLET PO SCH (21:43)
[2017-01-12] MEDS: LIDOCAINE PATCH REMOVAL MC SCH (21:45)
[2017-01-13] MEDS ORDERED: METHADONE HCL 40 MG DISPERSABLE TABLET ONE (03:14)
[2017-01-13] MEDS ORDERED: METHADONE HCL 10 MG TABLET ONE (03:14)
[2017-01-13] MEDS: METHADONE 40 MG, METHADONE 10 MG PO SCH (06:16)
[2017-01-13] MEDS: NICOTINE 21 MG/24 HOURS TOPICAL PATCH TD SCH (10:37)
[2017-01-13] MEDS: BUDESONIDE/FORMETEROL FUMARATE 80/4.5 mcg INHALER IH SCH ×2 (10:37→21:57)
[2017-01-13] MEDS: RANITIDINE HCL 150 MG TABLET (FP) PO SCH ×2 (10:37→21:56)
[2017-01-13] MEDS: LIDOCAINE 5% TOPICAL PATCH TP SCH (10:37)
[2017-01-13] MEDS: PRENATAL VITAMINS W/ FOLIC ACID TABLET (FP) PO SCH (10:37)
[2017-01-13] MEDS: EMTRICITABINE 200MG/TENOFOVIR 300MG PO SCH (21:56)
[2017-01-13] MEDS: DARUNAVIR ETHANOLATE 800 MG TAB PO SCH (21:56)
[2017-01-13] MEDS: SULFAMETHOXAZOLE/TRIMETHOPRIM 800MG/160MG D.S. TABLET PO SCH (21:56)
[2017-01-13] MEDS: RITONAVIR 100 MG TABLET PO SCH (21:56)
[2017-01-13] MEDS: QUEtiapine FUMARATE 50 MG TABLET PO SCH (21:56)
[2017-01-13] MEDS: THIAMINE HCL 100 MG TABLET (FP) PO SCH (21:57)
[2017-01-13] MEDS: LIDOCAINE PATCH REMOVAL MC SCH (21:58)
[2017-01-14] MEDS ORDERED: METHADONE HCL 10 MG TABLET ONE (03:11)
[2017-01-14] MEDS ORDERED: METHADONE HCL 40 MG DISPERSABLE TABLET ONE (03:12)
[2017-01-14] MEDS: METHADONE 40 MG, METHADONE 10 MG PO SCH (06:38)
[2017-01-14 06:57] VITALS: BP 111/69; PULSE 77; TEMP 98
[2017-01-14] MEDS: LIDOCAINE 5% TOPICAL PATCH TP SCH (10:10)
[2017-01-14] MEDS: PRENATAL VITAMINS W/ FOLIC ACID TABLET (FP) PO SCH (10:11)
[2017-01-14] MEDS: RANITIDINE HCL 150 MG TABLET (FP) PO SCH (10:11)
[2017-01-14] MEDS: NICOTINE 21 MG/24 HOURS TOPICAL PATCH TD SCH (10:11)
[2017-01-14] MEDS: BUDESONIDE/FORMETEROL FUMARATE 80/4.5 mcg INHALER IH SCH (10:12)
--- NOTE | 2017-01-14 15:54 | PN ---
[facility] Progress Note Note: patient requested to be discharged now, scripts for Seroquel 50 mg po hs provided, he accepted referrals patient is stable for discharge today.
== END 2017-01-14 16:30 | disposition home or self-care (01) | DRG 772 ==
LOC: YASAS 18:28 → Y5N 18:29
PROVIDERS: ADMIT Psychiatry & Neurology Psychiatry; ATTEND Psychiatry & Neurology Psychiatry
PROC: HZ42ZZZ Group Counseling for Substance Abuse Treatment, Cognitive-Behavioral (ICD-10-PCS; principal; 2017-01-06)
DX: F10.20 Alcohol dependence, uncomplicated (principal); F11.20 Opioid dependence, uncomplicated; F14.20 Cocaine dependence, uncomplicated; F17.210 Nicotine dependence, cigarettes, uncomplicated; F39 Unspecified mood [affective] disorder; Z21 Asymptomatic human immunodeficiency virus [HIV] infection status; N18.2 Chronic kidney disease, stage 2 (mild); J45.20 Mild intermittent asthma, uncomplicated; K21.9 Gastro-esophageal reflux disease without esophagitis; M54.9 Dorsalgia, unspecified; Z88.0 Allergy status to penicillin; Z91.013 Allergy to seafood

== ENCOUNTER 2018-08-12 15:38 | Inpatient (IN) | payer OTHER ==
[2018-08-12 19:33] VITALS: BMI 23.8
--- NOTE | 2018-08-13 00:08 | HP ---
CIWA Score Nausea/Vomitin-No Nausea/No Vomiting Muscle Tremors: 1-None Visible, but [place] Anxiety: 4-Mod. Anxious/Guarded Agitation: 4-Moderately Restless Paroxysmal Sweats: 3 Orientation: 0-Oriented Tacttile Disturbances: 0-None Auditory Disturbances: 2-Mild Harshness/Frighten Visual Disturbances: 2-Mild Sensitivity Headache: 3-Moderate CIWA-Ar Total Score: 19 - Admission Criteria OASAS Guidelines: Admission for Medically Managed Detox: Requires at least one of the followin. CIWA greater than 12 2. Seizures within the past 24 hours 3. Delirium tremens within the past 24 hours 4. Hallucinations within the past 24 hours 5. Acute intervention needed for co occurring medical disorder 6. Acute intervention needed for co occurring psychiatric disorder 7. Severe withdrawal that cannot be handled at a lower level of care (continued vomiting, continued diarrhea, abnormal vital signs) requiring intravenous medication and/or fluids 8. Patient presents the following: CIWA greater than 12 Admission Criteria Met: Admission criteria met Admission ROS [facility] - [facility] Chief Complaint: C/O WITHDRAWAL SX'S. SEEKING DETOX TXMENT Allergies/Adverse Reactions: Allergies Allergy/AdvReac Type Severity Reaction Status Date / Time Penicillins Allergy Mild Difficulty Verified 08/12/18 19:10 Breathing Fish Containing Products Allergy Rash Verified 08/12/18 19:10 [Fish Product Derivatives] History of Present Illness: 63 Y.O. MALE WITH HX/O ALCOHOLISM AND OPIOID DEPENDENCE HERE FOR DETOX. CLIENT IS PRESENTLY ON MMTP. HE REPORTS A DOSE OF 70MG DAILY. LDM TODAY. PROGRAM AT [facility]. HE REPORTS STILL USING ABOUT 4 BAGS OF HEROIN IN ADDITION TO MMTP. PRESENTS TODAY WITH C/O ALCOHOL WITHDRAWAL. CIWA 19. REPORTS DRINKING DAILY. MOST LONGEST CLEAN TIME 4 YEARS. DENIES HX/O SEIZURES, BLACKOUTS , SI/HI/AVH. DOMICILED, UNEMPLOYED, DENIES LEGALS Exam Limitations: No Limitations - Ebola screening Have you traveled outside of the country in the last 21 days: No (N) Have you had contact with anyone from an Ebola affected area: No Do you have a fever: No - Review of Systems Constitutional: Chills, Fever, Loss of Appetite, Malaise, Night Sweats, Changes in sleep EENT: reports: Dental Problems (DENTURES TOP/BOTTOM) Respiratory: reports: Shortness of Breath, Productive cough (x 2 weeks with greenish now with fever) Cardiac: reports: No Symptoms Reported GI: reports: Poor Fluid Intake : reports: No Symptoms Reported Musculoskeletal: reports: Back Pain, Joint Pain Integumentary: reports: No Symptoms Reported Neuro: reports: Tremors (FELT) Endocrine: reports: No Symptoms Reported Hematology: reports: No Symptoms Reported Psychiatric: reports: Orientated x3, Depressed Other Systems: Reviewed and Negative Patient History - Patient Medical History Hx Anemia: No Hx Asthma: Yes Hx Chronic Obstructive Pulmonary Disease (COPD): No Hx Cancer: No Hx Cardiac Disorders: No Hx Congestive Heart Failure: No Hx Hypertension: No Hx Hypercholesterolemia: No Hx Pacemaker: No HX Cerebrovascular Accident: No Hx Seizures: No Hx Dementia: No Hx Diabetes: No Hx Gastrointestinal Disorders: Yes Hx Liver Disease: No Hx Genitourinary Disorders: No Hx Sexually Transmitted Disorders: Yes Hx Renal Disease (ESRD): No Hx Thyroid Disease: No Hx Human Immunodeficiency Virus (HIV): Yes (since 2004) Hx Hepatitis C: Yes (NOT TREATED) Hx Depression: Yes Hx Suicide Attempt: No Hx Bipolar Disorder: Yes Hx Schizophrenia: No - Patient Surgical History Past Surgical History: Yes Hx Neurologic Surgery: No Hx Cataract Extraction: No Hx Cardiac Surgery: No Hx Lung Surgery: No Hx Breast Surgery: No Hx Breast Biopsy: No Hx Abdominal Surgery: No Hx Appendectomy: Yes (at age of 5) Hx Cholecystectomy: No Hx Genitourinary Surgery: No Hx Section: No Hx Orthopedic Surgery: No Anesthesia Reaction: No - PPD History Previous Implant?: Yes Documented Results: Negative w/proof Implanted On Prior [facility] Admission?: Yes Date: 07/06/16 Results: 0 PPD to be Administered?: Yes - Smoking Cessation Smoking history: Current every day smoker Have you smoked in the past 12 months: Yes Aproximately how many cigarettes per day: 15 Cigars Per Day: 0 Hx Chewing Tobacco Use: No Initiated information on smoking cessation: Yes 'Breaking Loose' booklet given: 08/13/18 - Substance & Tx. History Hx Alcohol Use: Yes Hx Substance Use: Yes Substance Use Type: Alcohol, Cocaine, Heroin, Marijuana, Prescribed (MTD) Hx Substance Use Treatment: Yes ([facility]) - Substances abused Alcohol Substance route: Oral Frequency: Daily Amount used: 1 pint of vodka Age of first use: 10 Date of last use: 08/12/18 Heroin Substance route: Injection Frequency: Daily Amount used: 200 hundred dollars. Age of first use: 15 Date of last use: 08/12/18 Crack Substance route: Smoking Frequency: Daily Amount used: 100 dollars Age of first use: 22 Date of last use: 08/12/18 Cocaine Substance route: Injection Frequency: 3-6 times per week Amount used: 80 dollars Age of first use: 20 Date of last use: 08/12/18 Family Disease History - Family Disease History Family Disease History: CA: Father (RECTAL ), Mother ( ) Admission Physical Exam [facility] - Vital Signs Vital Signs: Vital Signs - 24 hr 08/12/18 19:20 Temperature 101.3 F H Pulse Rate 76 Respiratory 16 Rate Blood Pressure 155/87 - Physical General Appearance: Yes: Mild Distress, Tremorous HEENTM: Yes: EOMI, Normocephalic, Normal Voice, STACY, Pharynx Normal, Other ( TOP DENTURES) Respiratory: Yes: Chest Non-Tender, Lungs Clear, Decreased Breath Sounds, No Respiratory Distress, Other (+ non prodcutive cough) Neck: Yes: No masses,lesions,Nodules, Supple, Trachea in good position Breast: Yes: Breast Exam Deferred Cardiology: Yes: Regular Rhythm, Regular Rate, S1, S2 Abdominal: Yes: Normal Bowel Sounds, Non Tender, Soft, Surgical Scar Genitourinary: Yes: Within Normal Limits Back: Yes: Normal Inspection Musculoskeletal: Yes: full range of Motion, Gait Steady Extremities: Yes: Normal Capillary Refill, Normal Range of Motion, Non-Tender, Tremors Neurological: Yes: Fully Oriented, Alert, Motor Strength 5/5, Depressed Affect Integumentary: Yes: Dry, Warm Lymphatic: Yes: Within Normal Limits - Addiitonal Findings: PT C/O COUGH WITH GREENISH SPUTUM X 2 WEEKS. NOW WITH FEVER AND MALAISE COMBINED WITH WITHDRAWAL SX'S. WILL TREAT FOR POSSIBLE PNA VS BRONCHITIS WITH 5 DAY Z PACK - Diagnostic (1) Alcohol dependence with uncomplicated withdrawal Current Visit: Yes Status: Acute (2) Drug-induced mood disorder Current Visit: Yes Status: Suspected (3) Asthma Current Visit: Yes Status: Chronic Qualifiers: Asthma severity: mild Asthma persistence: intermittent Asthma complication type: unspecified Qualified Code(s): J45.20 - Mild intermittent asthma, uncomplicated (4) Cocaine dependence Current Visit: Yes Status: Chronic Qualifiers: (5) GERD (gastroesophageal reflux disease) Current Visit: Yes Status: Chronic Qualifiers: Esophagitis presence: esophagitis presence not specified Qualified Code(s) : K21.9 - Gastro-esophageal reflux disease without esophagitis (6) HIV disease Current Visit: Yes Status: Chronic (7) Methadone maintenance therapy patient Current Visit: Yes Status: Chronic Comment: 60 mg po verification pending (8) Nicotine dependence Current Visit: Yes Status: Chronic Qualifiers: Nicotine product type: cigarettes Substance use status: uncomplicated Qualified Code(s): F17.210 - Nicotine dependence, cigarettes, uncomplicated (9) Depression (emotion) Current Visit: Yes Status: Chronic Qualifiers: Depression Type: dysthymia Qualified Code(s): F34.1 - Dysthymic disorder (10) Bronchitis Current Visit: Yes Status: Acute Cleared for Admission [facility] - Detox or Rehab S Level of Care: Medically Managed Detox Regimen/Protocol: Librium Claeared for Rehab Admission: No Breathalyzer - Breathalyzer Breathalyzer: 0 Urine Drug Screen - Test Device Lot number: [id number] Expiration date: 05/01/20 - Control Is test valid?: Yes - Results Drug screen NEGATIVE: No Urine drug screen results: THC-Marijuana, MARIJA-Cocaine, FEN-Fentanyl, MOP-Opiates , MTD-Methadone Inpatient Rehab Admission - Rehab Decision to Admit Inpatient rehab admission?: No
[2018-08-13] MEDS ORDERED: NICOTINE POLACRILEX 2 MG GUM BUC PRN (00:12)
[2018-08-13] MEDS ORDERED: MELATONIN 5 MG TABLETS PO PRN (00:12)
[2018-08-13] MEDS ORDERED: IBUPROFEN 400 MG TABLET (FP) PO PRN (00:12)
[2018-08-13] MEDS ORDERED: METHOCARBAMOL 500 MG TABLET PO PRN (00:12)
[2018-08-13] MEDS ORDERED: ONDANSETRON *ODT* 4 MG TABLET SL PRN (00:12)
[2018-08-13] MEDS ORDERED: hydrOXYzine PAMOATE 25 MG CAPSULE (FP) PO PRN (00:12)
[2018-08-13] MEDS ORDERED: MAG HYDROX/AL HYDROX/SIMETH 30 ML UNIT-DOSE CUP PO PRN (00:12)
[2018-08-13] MEDS ORDERED: BISMUTH SUBSALICYLATE 524 MG/30 ML UD PO PRN (00:12)
[2018-08-13] MEDS ORDERED: guaiFENesin 200 MG/10 ML 10 ML UNIT-DOSE CUPS PO PRN (00:12)
[2018-08-13] MEDS ORDERED: MAGNESIUM HYDROX 2400MG/30ML ORAL SUSPENSION 30 ML CUP PO PRN (00:12)
[2018-08-13] MEDS ORDERED: MAGNESIUM CITRATE 300 ML BOTTLE PO PRN (00:12)
[2018-08-13] MEDS ORDERED: DICYCLOMINE HCL 10 MG CAPSULE PO PRN (00:12)
[2018-08-13] MEDS ORDERED: ACETAMINOPHEN 325 MG TABLET (FP) PO PRN ×2 (00:12)
[2018-08-13] MEDS ORDERED: P-EPHED 60MG/TRIPROLIDI 2.5MG TABLET PO PRN (00:12)
[2018-08-13] MEDS ORDERED: chlordiazePOXIDE HCL 25 MG CAPSULE PO PRN (00:12)
[2018-08-13] MEDS ORDERED: MENTHOL/PHENOL 1 EACH UD MM PRN (00:12)
[2018-08-13] MEDS ORDERED: AZITHROMYCIN 250 MG TABLET PO ONE (02:15)
[2018-08-13] MEDS: chlordiazePOXIDE HCL 25 MG CAPSULE PO SCH ×4 (06:17→22:17)
[2018-08-13] MEDS ORDERED: METHADONE HCL 40 MG DISPERSABLE TABLET PO SCH (08:00)
[2018-08-13] MEDS ORDERED: METHADONE HCL 10 MG TABLET ONE (09:18)
[2018-08-13] MEDS ORDERED: METHADONE HCL 40 MG DISPERSABLE TABLET ONE (09:19)
[2018-08-13] MEDS: METHADONE 40 MG, METHADONE 30 MG PO SCH (09:21)
[2018-08-13] MEDS: PRENATAL VITAMINS W/ FOLIC ACID TABLET (FP) PO SCH (10:16)
[2018-08-13] MEDS: NICOTINE 21 MG/24 HOURS TOPICAL PATCH TD SCH (10:16)
--- NOTE | 2018-08-13 10:18 | CONSULT ---
[facility] Psychiatric Consult - Data Date of interview: 08/13/18 Admission source: [facility] Identifying data: Readmission to [facility] for this 63 y/o AA male self- referred for detoxification (heroin, cannabis, crack/cocaine, alcohol). Patient is , a father of three, domiciled, unemployed (retired) and supported on [employer] funds. Substance Abuse History: Confirmed by patient in this session. Details in current [facility] report as follows : Smoking history: Current every day smoker. Have you smoked in the past 12 months: Yes. Aproximately how many cigarettes per day: 15. Cigars Per Day: 0. Hx Chewing Tobacco Use: No. Initiated information on smoking cessation: Yes. 'Breaking Loose' booklet given: . - Substance & Tx. History. Hx Alcohol Use: Yes. Hx Substance Use: Yes. Substance Use Type: Alcohol, Cocaine, Heroin, Marijuana, Prescribed ([facility]). Hx Substance Use Treatment: Yes ([facility]). - Substances abused. Alcohol. Substance route: Oral. Frequency: Daily. Amount used: 1 pint of vodka. Age of first use: 10. Date of last use: 08/12/18. Heroin. Substance route: Injection. Frequency: Daily. Amount used: 200 hundred dollars. Age of first use: 15. Date of last use: 08/12/18. Crack. Substance route: Smoking. Frequency: Daily. Amount used: 100 dollars. Age of first use: 22. Date of last use: 08/12/18. Cocaine. Substance route: Injection. Frequency: 3-6 times per week. Amount used: 80 dollars. Age of first use: 20. Date of last use: 08/12/18 Medical History: Remarkable for GERD, hepatitis C, HIV infection since 2004 (on ART medications), bronchial asthma and a history of appendectomy (childhood). Psychiatric History: No reported history of psychiatric hospitalizations. First contact with a psychiatist was at [facility] about 10-12 years ago. Patient was diagnosed with MDD and Anxiety Disorder. Mr Milner states that he is currently in OPD treatment at the [facility] at [address] [place] [address] in the [place]. He is prescribed seroquel 50 mg/hs. Patient denies denies history of suicide attempts. Physical/Sexual Abuse/Trauma History: No history of abuse. Additional Comment: Urine drug screen results: THC-Marijuana, MARIJA-Cocaine, FEN- Fentanyl, MOP-Opiates, MTD-Methadone. Noted. Mental Status Exam - Mental Status Exam Alert and Oriented to: Time, Place, Person Cognitive Function: Good Patient Appearance: Well Groomed Mood: Hopeful, Euthymic Affect: Appropriate, Normal Range Patient Behavior: Fatigued, Appropriate, Cooperative Speech Pattern: Clear, Appropriate Voice Loudness: Normal Thought Process: Intact, Goal Oriented Thought Disorder: Not Present Hallucinations: Denies Suicidal Ideation: Denies Homicidal Ideation: Denies Insight/Judgement: Poor Sleep: Poorly, Difficulty falling asleep Appetite: Poor, Weight loss Muscle strength/Tone: Normal Gait/Station: Normal Psychiatric Findings - Problem List ([place] 1, 2,3) (1) Alcohol dependence with uncomplicated withdrawal Current Visit: Yes Status: Acute (2) Opioid dependence on agonist therapy Current Visit: Yes Status: Chronic (3) Cannabis dependence Current Visit: Yes Status: Chronic (4) Cocaine dependence Current Visit: Yes Status: Chronic Qualifiers: (5) Nicotine dependence Current Visit: Yes Status: Chronic Qualifiers: Nicotine product type: cigarettes Substance use status: uncomplicated Qualified Code(s): F17.210 - Nicotine dependence, cigarettes, uncomplicated (6) Substance induced mood disorder Current Visit: Yes Status: Chronic (7) Insomnia Current Visit: Yes Status: Chronic - Initial Treatment Plan Initial Treatment Plan: Psychoeducation. Sleep hygiene. Detoxification. Seroquel 50 mg po hs. Ordered. Side effects/benefits discussed with patient. Mr Milner agrees with this plan of care. Verbal consent given to MD. Huggins.
[2018-08-13 12:33] LABS: HEMOGLOBIN 12.7 GM/dL (11.7-16.9); MCH 30.1 pg (25.7-33.7); MCHC 34.4 g/dl (32.0-35.9); MEAN CELL VOLUME 87.6 fl (80-96); MEAN PLT VOLUME 8.6 fl (7.5-11.1); RBC 4.23 M/mm3 (4.00-5.60); RDW 12.4 % (11.9-15.9); WHITE BLOOD COUNT 2.2 K/mm3 (4.0-10.0)
[2018-08-13 12:37] LABS: PLATELET COUNT 122 K/MM3 (134-434)
[2018-08-13 12:42] LABS: ALBUMIN 2.9 g/dl (3.4-5.0); BILIRUBIN,TOTAL 0.8 mg/dL (0.2-1); BLOOD UREA NITROGEN 10.1 mg/dL (7-18); CALCIUM 8.1 mg/dL (8.5-10.1); CREATININE 1.1 mg/dL (0.55-1.3); POTASSIUM 3.3 mmol/L (3.5-5.1); TOT PROT 7.4 g/dl (6.4-8.2)
--- NOTE | 2018-08-13 14:42 | PN ---
S CIWA - CIWA Score Nausea/Vomitin-Mild Nausea/No Vomiting Muscle Tremors: 2 Anxiety: 2 Agitation: 2 Paroxysmal Sweats: 2 Orientation: 0-Oriented Tacttile Disturbances: 0-None Auditory Disturbances: 0-None Visual Disturbances: 0-None Headache: 0-None Present CIWA-Ar Total Score: 9 BHS Progress Note (SOAP) Subjective: pt states he is feeling better, came in early today for alcohol detox, on MAT methadone. O: Vital Signs - 24 hr 08/12/18 08/13/18 08/13/18 19:20 03:15 03:30 Temperature 101.3 F H 97 F L Pulse Rate 76 74 Respiratory 16 18 18 Rate Blood Pressure 155/87 151/89 08/13/18 08/13/18 08/13/18 05:55 06:30 09:43 Temperature 97.2 F L 97.6 F Pulse Rate 78 75 Respiratory 18 18 20 Rate Blood Pressure 124/81 111/74 08/13/18 13:47 Temperature 98.7 F Pulse Rate 68 Respiratory 18 Rate Blood Pressure 113/74 Laboratory Tests 08/13/18 08/13/18 08/13/18 07:30 07:30 07:30 WBC 2.2 L RBC 4.23 Hgb 12.7 Hct 37.0 MCV 87.6 MCH 30.1 MCHC 34.4 RDW 12.4 Plt Count 122 L MPV 8.6 Sodium 136 Potassium 3.3 L Chloride 104 Carbon Dioxide 29 Anion Gap 4 L BUN 10.1 Creatinine 1.1 Est GFR (CKD-EPI)AfAm 82.95 Est GFR (CKD-EPI)NonAf 71.57 Random Glucose 103 Calcium 8.1 L Total Bilirubin 0.8 AST 60 H ALT 29 Alkaline Phosphatase 95 Total Protein 7.4 Albumin 2.9 L RPR Titer Nonreactive low potassium increased AST a/p: continue alcohol detox protocol replete potassium
[2018-08-13] MEDS ORDERED: POTASSIUM CHLORIDE ORAL LIQUID 20 MEQ/15 ML PO ONE (15:00)
[2018-08-13] MEDS: POTASSIUM CHLORIDE ORAL LIQUID 20 MEQ/15 ML PO SCH (22:17)
[2018-08-13] MEDS: THIAMINE HCL 100 MG TABLET (FP) PO SCH (22:17)
[2018-08-13] MEDS: QUEtiapine FUMARATE 50 MG TABLET PO SCH (22:17)
[2018-08-14] MEDS ORDERED: METHADONE HCL 10 MG TABLET ONE (04:48)
[2018-08-14] MEDS ORDERED: METHADONE HCL 40 MG DISPERSABLE TABLET ONE (04:49)
[2018-08-14] MEDS: METHADONE 40 MG, METHADONE 30 MG PO SCH (05:58)
[2018-08-14] MEDS: chlordiazePOXIDE HCL 25 MG CAPSULE PO SCH ×4 (06:48→22:01)
[2018-08-14] MEDS: PRENATAL VITAMINS W/ FOLIC ACID TABLET (FP) PO SCH (10:42)
[2018-08-14] MEDS: NICOTINE 21 MG/24 HOURS TOPICAL PATCH TD SCH (10:42)
[2018-08-14] MEDS: POTASSIUM CHLORIDE ORAL LIQUID 20 MEQ/15 ML PO SCH ×2 (10:42→22:01)
[2018-08-14] MEDS: AZITHROMYCIN 250 MG TABLET PO SCH (10:42)
--- NOTE | 2018-08-14 14:24 | PN ---
[facility] CIWA - CIWA Score Nausea/Vomitin-No Nausea/No Vomiting Muscle Tremors: None Anxiety: 2 Agitation: 1-Slight > Activity Paroxysmal Sweats: 2 Orientation: 0-Oriented Tacttile Disturbances: 2-Mild Itch/Numbness/Burn Auditory Disturbances: 2-Mild Harshness/Frighten Visual Disturbances: 0-None Headache: 0-None Present CIWA-Ar Total Score: 9 S Progress Note (SOAP) Subjective: Fatigue, Anxious, Poor Appetite. Objective: PATIENT A & O X 3, OBSERVED AMBULATING ON UNIT UNASSISTED. IN NO ACUTE DISTRESS. 08/14/18 14:24 Vital Signs Temperature 98.9 F 08/14/18 13:08 Pulse Rate 67 08/14/18 13:08 Respiratory Rate 18 08/14/18 13:08 Blood Pressure 124/78 08/14/18 13:08 O2 Sat by Pulse Oximetry (%) Laboratory Tests 08/13/18 08/13/18 08/13/18 07:30 07:30 07:30 WBC 2.2 L RBC 4.23 Hgb 12.7 Hct 37.0 MCV 87.6 MCH 30.1 MCHC 34.4 RDW 12.4 Plt Count 122 L MPV 8.6 Sodium 136 Potassium 3.3 L Chloride 104 Carbon Dioxide 29 Anion Gap 4 L BUN 10.1 Creatinine 1.1 Est GFR (CKD-EPI)AfAm 82.95 Est GFR (CKD-EPI)NonAf 71.57 Random Glucose 103 Calcium 8.1 L Total Bilirubin 0.8 AST 60 H ALT 29 Alkaline Phosphatase 95 Total Protein 7.4 Albumin 2.9 L RPR Titer Nonreactive LABS NOTED. PATIENT HAS HAD LOW WBC LEVELS ON PREVIOUS ADMISSIONS. 08/14/18 14:27 Assessment: 08/14/18 14:24 WITHDRAWAL SYMPTOMS. LEUKOPENIA. THROMBOCYTOPENIA. ELEVATED AST LEVEL. HYPOKALEMIA. HYPOCALCEMIA. 08/14/18 14:27 Plan: CONTINUE DETOX. CONTINUE K-DUR FOR HYPOKALEMIA. OSCAL, 500 MG PO BID FOR HYPOCALCEMIA. INCREASE DAILY PO WATER INTAKE.
[2018-08-14] MEDS: QUEtiapine FUMARATE 50 MG TABLET PO SCH (22:01)
[2018-08-14] MEDS: THIAMINE HCL 100 MG TABLET (FP) PO SCH (22:02)
[2018-08-14] MEDS: CALCIUM 500MG/VIT-D 200 UNITS COMBO TABLET (FP) PO SCH (22:56)
[2018-08-15] MEDS ORDERED: METHADONE HCL 10 MG TABLET ONE (04:55)
[2018-08-15] MEDS ORDERED: METHADONE HCL 40 MG DISPERSABLE TABLET ONE (04:56)
[2018-08-15] MEDS ORDERED: chlordiazePOXIDE HCL 10 MG CAPSULE PO PRN (05:00)
[2018-08-15] MEDS: METHADONE 40 MG, METHADONE 30 MG PO SCH (05:22)
[2018-08-15] MEDS: chlordiazePOXIDE HCL 10 MG CAPSULE PO SCH ×4 (05:22→22:03)
[2018-08-15] MEDS ORDERED: RITONAVIR 100 MG TABLET PO SCH (10:00)
[2018-08-15] MEDS: NICOTINE 21 MG/24 HOURS TOPICAL PATCH TD SCH (10:16)
[2018-08-15] MEDS: AZITHROMYCIN 250 MG TABLET PO SCH (10:16)
[2018-08-15] MEDS: PRENATAL VITAMINS W/ FOLIC ACID TABLET (FP) PO SCH (10:17)
[2018-08-15] MEDS: CALCIUM 500MG/VIT-D 200 UNITS COMBO TABLET (FP) PO SCH ×2 (10:17→22:03)
[2018-08-15] MEDS: POTASSIUM CHLORIDE ORAL LIQUID 20 MEQ/15 ML PO SCH ×2 (12:31→22:03)
--- NOTE | 2018-08-15 14:03 | PN ---
S CIWA - CIWA Score Nausea/Vomitin-No Nausea/No Vomiting Muscle Tremors: 2 Anxiety: 1-Mildly Anxious Agitation: 1-Slight > Activity Paroxysmal Sweats: 2 Orientation: 0-Oriented Tacttile Disturbances: 0-None Auditory Disturbances: 0-None Visual Disturbances: 0-None Headache: 0-None Present CIWA-Ar Total Score: 6 BHS Progress Note (SOAP) Subjective: sweats interrupted sleep I need my HIV medication and I am a bit upset as to why its taking so long to get it. Objective: 08/15/18 13:59 Vital Signs Temperature 98.9 F 08/15/18 13:51 Pulse Rate 78 08/15/18 13:51 Respiratory Rate 18 08/15/18 13:51 Blood Pressure 101/71 08/15/18 13:51 O2 Sat by Pulse Oximetry (%) aaox3 ambulating no acute distress Assessment: 08/15/18 14:00 mild withdrawal sx Plan: continue with detox increase fluids HIV medication Caryn was researched with pt own pharmacy and he filled his medication on 07/23/18. Order was placed. pt was made aware he will only receive this medication during his stay with us detox and or rehab. He will need to continue with his medication as home and use the one that was recently filled. Pt is to continue with his PCP and/or ID doctor for future follow up visit/ treatment.
[2018-08-15] MEDS: BICTEGRAV/EMTRICIT/TENOFOV (BIKTARVY) 50-200-25 MG TABLET PO SCH (15:00)
[2018-08-15] MEDS ORDERED: PATIENT'S OWN MEDICATION (NON-FORMULARY) (Bictegrav/Emtricit/Tenofov Ala 1 TABLET) PO SCH (22:00)
[2018-08-15] MEDS: THIAMINE HCL 100 MG TABLET (FP) PO SCH (22:03)
[2018-08-15] MEDS: QUEtiapine FUMARATE 50 MG TABLET PO SCH (22:03)
[2018-08-16] MEDS ORDERED: METHADONE HCL 10 MG TABLET ONE (04:43)
[2018-08-16] MEDS ORDERED: METHADONE HCL 40 MG DISPERSABLE TABLET ONE (04:44)
[2018-08-16] MEDS: METHADONE 40 MG, METHADONE 30 MG PO SCH (06:03)
[2018-08-16] MEDS: chlordiazePOXIDE HCL 10 MG CAPSULE PO SCH ×2 (06:03→17:53)
--- NOTE | 2018-08-16 10:26 | PN ---
S CIWA - CIWA Score Nausea/Vomitin-No Nausea/No Vomiting Muscle Tremors: 1-None Visible, but [place] Anxiety: 1-Mildly Anxious Agitation: 1-Slight > Activity Paroxysmal Sweats: 3 Orientation: 0-Oriented Tacttile Disturbances: 0-None Auditory Disturbances: 0-None Visual Disturbances: 0-None Headache: 0-None Present CIWA-Ar Total Score: 6 BHS Progress Note (SOAP) Subjective: c/o mild anxiety, sweats, and mild shakes. Objective: 08/16/18 10:25 Vital Signs 08/16/18 08/16/18 08/16/18 03:30 06:11 09:28 Temperature 99.1 F 99 F Pulse Rate 69 68 Respiratory 18 18 20 Rate Blood Pressure 111/64 114/66 Lab Results WBC 2.2 K/mm3 (4.0-10.0) L 08/13/18 07:30 RBC 4.23 M/mm3 (4.00-5.60) 08/13/18 07:30 Hgb 12.7 GM/dL (11.7-16.9) 08/13/18 07:30 Hct 37.0 % (35.4-49) 08/13/18 07:30 MCV 87.6 fl (80-96) 08/13/18 07:30 MCHC 34.4 g/dl (32.0-35.9) 08/13/18 07:30 RDW 12.4 % (11.9-15.9) 08/13/18 07:30 Plt Count 122 K/MM3 (134-434) L 08/13/18 07:30 Sodium 136 mmol/L (136-145) 08/13/18 07:30 Potassium 4.2 mmol/L (3.5-5.1) 08/15/18 11:00 Chloride 104 mmol/L (98-107) 08/13/18 07:30 Carbon Dioxide 29 mmol/L (21-32) 08/13/18 07:30 Anion Gap 4 MMOL/L (8-16) L 08/13/18 07:30 BUN 10.1 mg/dL (7-18) 08/13/18 07:30 Creatinine 1.1 mg/dL (0.55-1.3) 08/13/18 07:30 Random Glucose 103 mg/dL (74-106) 08/13/18 07:30 Calcium 8.1 mg/dL (8.5-10.1) L 08/13/18 07:30 Labs noted. Assessment: 08/16/18 10:25 AOX3, in no acute distress Full ROM, ambulating in the unit. Withdrawal symptoms. Plan: continue detox.
[2018-08-16] MEDS: POTASSIUM CHLORIDE ORAL LIQUID 20 MEQ/15 ML PO SCH ×2 (12:26→22:10)
[2018-08-16] MEDS: AZITHROMYCIN 250 MG TABLET PO SCH (12:27)
[2018-08-16] MEDS: PRENATAL VITAMINS W/ FOLIC ACID TABLET (FP) PO SCH (12:27)
[2018-08-16] MEDS: BICTEGRAV/EMTRICIT/TENOFOV (BIKTARVY) 50-200-25 MG TABLET PO SCH (12:27)
[2018-08-16] MEDS: CALCIUM 500MG/VIT-D 200 UNITS COMBO TABLET (FP) PO SCH ×2 (12:30→22:10)
[2018-08-16] MEDS: NICOTINE 21 MG/24 HOURS TOPICAL PATCH TD SCH (12:30)
[2018-08-16] MEDS: THIAMINE HCL 100 MG TABLET (FP) PO SCH (22:10)
[2018-08-16] MEDS: QUEtiapine FUMARATE 50 MG TABLET PO SCH (22:10)
[2018-08-17] MEDS ORDERED: METHADONE HCL 10 MG TABLET ONE (04:11)
[2018-08-17] MEDS ORDERED: METHADONE HCL 40 MG DISPERSABLE TABLET ONE (04:12)
[2018-08-17] MEDS: METHADONE 40 MG, METHADONE 30 MG PO SCH (05:57)
[2018-08-17] MEDS: chlordiazePOXIDE HCL 10 MG CAPSULE PO SCH (05:59)
[2018-08-17] MEDS: POTASSIUM CHLORIDE ORAL LIQUID 20 MEQ/15 ML PO SCH ×2 (10:27→22:20)
[2018-08-17] MEDS: PRENATAL VITAMINS W/ FOLIC ACID TABLET (FP) PO SCH (10:27)
[2018-08-17] MEDS: NICOTINE 21 MG/24 HOURS TOPICAL PATCH TD SCH (10:28)
[2018-08-17] MEDS: CALCIUM 500MG/VIT-D 200 UNITS COMBO TABLET (FP) PO SCH ×2 (10:28→22:20)
[2018-08-17] MEDS: AZITHROMYCIN 250 MG TABLET PO SCH (10:28)
[2018-08-17] MEDS: BICTEGRAV/EMTRICIT/TENOFOV (BIKTARVY) 50-200-25 MG TABLET PO SCH (10:29)
--- NOTE | 2018-08-17 11:31 | PN ---
S CIWA - CIWA Score Nausea/Vomitin Muscle Tremors: 2 Anxiety: 2 Agitation: 2 Paroxysmal Sweats: 1-Minimal Palms Moist Orientation: 0-Oriented Tacttile Disturbances: 1-Very Mild Itch/Numbness Auditory Disturbances: 0-None Visual Disturbances: 0-None Headache: 1-Very Mild CIWA-Ar Total Score: 11 S Progress Note (SOAP) Subjective: blanquita received his last dose of librium but was noted to be fatigued, reports he did not sleep secondary to withdrawal discomfort Objective: 08/17/18 11:29 Laboratory Tests 08/13/18 08/13/18 08/13/18 07:30 07:30 07:30 WBC 2.2 L RBC 4.23 Hgb 12.7 Hct 37.0 MCV 87.6 MCH 30.1 MCHC 34.4 RDW 12.4 Plt Count 122 L MPV 8.6 Sodium 136 Potassium 3.3 L Chloride 104 Carbon Dioxide 29 Anion Gap 4 L BUN 10.1 Creatinine 1.1 Est GFR (CKD-EPI)AfAm 82.95 Est GFR (CKD-EPI)NonAf 71.57 Random Glucose 103 Calcium 8.1 L Total Bilirubin 0.8 AST 60 H ALT 29 Alkaline Phosphatase 95 Total Protein 7.4 Albumin 2.9 L RPR Titer Nonreactive 08/15/18 11:00 WBC RBC Hgb Hct MCV MCH MCHC RDW Plt Count MPV Sodium Potassium 4.2 Chloride Carbon Dioxide Anion Gap BUN Creatinine Est GFR (CKD-EPI)AfAm Est GFR (CKD-EPI)NonAf Random Glucose Calcium Total Bilirubin AST ALT Alkaline Phosphatase Total Protein Albumin RPR Titer Vital Signs - 24 hr 08/16/18 08/16/18 08/16/18 13:30 17:55 21:33 Temperature 98.0 F 97.0 F L 97.2 F L Pulse Rate 71 71 71 Respiratory 18 17 18 Rate Blood Pressure 117/73 130/82 127/75 08/17/18 08/17/18 08/17/18 00:30 03:30 06:37 Temperature 97.8 F Pulse Rate 66 Respiratory 18 18 18 Rate Blood Pressure 103/54 L 08/17/18 09:18 Temperature 98.1 F Pulse Rate 78 Respiratory 18 Rate Blood Pressure 104/69 alert and ambulating yet visibly uncomfortable when not sleeping 08/17/18 11:30 Assessment: 08/17/18 11:30 etoh dep and withdrawal protracted sx Plan: 24h observation cont adjunct management anticipate dc in am
[2018-08-17] MEDS: THIAMINE HCL 100 MG TABLET (FP) PO SCH (22:19)
[2018-08-17] MEDS: QUEtiapine FUMARATE 50 MG TABLET PO SCH (22:20)
[2018-08-18] MEDS ORDERED: METHADONE HCL 10 MG TABLET ONE (04:57)
[2018-08-18] MEDS ORDERED: METHADONE HCL 40 MG DISPERSABLE TABLET ONE (04:57)
[2018-08-18] MEDS: METHADONE 40 MG, METHADONE 30 MG PO SCH (05:28)
[2018-08-18] MEDS: CALCIUM 500MG/VIT-D 200 UNITS COMBO TABLET (FP) PO SCH ×2 (12:26→22:18)
[2018-08-18] MEDS: NICOTINE 21 MG/24 HOURS TOPICAL PATCH TD SCH (12:26)
[2018-08-18] MEDS: PRENATAL VITAMINS W/ FOLIC ACID TABLET (FP) PO SCH (12:27)
[2018-08-18] MEDS: BICTEGRAV/EMTRICIT/TENOFOV (BIKTARVY) 50-200-25 MG TABLET PO SCH (12:28)
[2018-08-18] MEDS: POTASSIUM CHLORIDE ORAL LIQUID 20 MEQ/15 ML PO SCH ×2 (13:24→22:21)
--- NOTE | 2018-08-18 14:15 | PN ---
[facility] CIWA - CIWA Score Nausea/Vomitin-No Nausea/No Vomiting Muscle Tremors: None Anxiety: 2 Agitation: 0-Normal Activity Paroxysmal Sweats: 1-Minimal Palms Moist Orientation: 0-Oriented Tacttile Disturbances: 1-Very Mild Itch/Numbness Auditory Disturbances: 0-None Visual Disturbances: 2-Mild Sensitivity Headache: 0-None Present CIWA-Ar Total Score: 6 BHS Progress Note (SOAP) Subjective: Patient Reports Continuing Fatigue; however, he notes that he feeling of fatigue is subsiding with each day. Objective: PATIENT A & O X 3. PATIENT APPEARS SOMEWHAT LETHARGIC; HOWEVER, HE IS ABLE TO AMBULATE ON UNIT UNASSISTED. IN NO ACUTE DISTRESS. 08/18/18 14:11 Vital Signs Temperature 97.3 F L 08/18/18 13:20 Pulse Rate 73 08/18/18 13:20 Respiratory Rate 18 08/18/18 13:20 Blood Pressure 148/83 08/18/18 13:20 O2 Sat by Pulse Oximetry (%) Laboratory Tests 08/13/18 08/13/18 08/13/18 07:30 07:30 07:30 WBC 2.2 L RBC 4.23 Hgb 12.7 Hct 37.0 MCV 87.6 MCH 30.1 MCHC 34.4 RDW 12.4 Plt Count 122 L MPV 8.6 Sodium 136 Potassium 3.3 L Chloride 104 Carbon Dioxide 29 Anion Gap 4 L BUN 10.1 Creatinine 1.1 Est GFR (CKD-EPI)AfAm 82.95 Est GFR (CKD-EPI)NonAf 71.57 Random Glucose 103 Calcium 8.1 L Total Bilirubin 0.8 AST 60 H ALT 29 Alkaline Phosphatase 95 Total Protein 7.4 Albumin 2.9 L RPR Titer Nonreactive 08/15/18 11:00 WBC RBC Hgb Hct MCV MCH MCHC RDW Plt Count MPV Sodium Potassium 4.2 Chloride Carbon Dioxide Anion Gap BUN Creatinine Est GFR (CKD-EPI)AfAm Est GFR (CKD-EPI)NonAf Random Glucose Calcium Total Bilirubin AST ALT Alkaline Phosphatase Total Protein Albumin RPR Titer LABS NOTED. Assessment: 08/18/18 14:12 WITHDRAWAL SYMPTOMS. ELEVATED AST LEVEL. HYPOCALCEMIA. THROMBOCYTOPENIA. LEUKOPENIA (PATIENT HAS HAD LOW WBC LEVELS ON PREVIOUS ADMISSIONS). Plan: CONTINUE DETOX. PATIENT TO REMIAN ON DETOX UNIT UNTIL TOMORROW AM TO ALLOW FOR MORE TIME FOR LETHARGY TO CONTINUE TO SUBSIDE. PATIENT WILL LIKELY GO ON TO REHAB TOMORROW. PATIENT ENCOURAGED TO INCREASE DAILY PO WATER INTAKE AND TO GET UP FROM LYING DOWN / SITTING POSITIONS SLOWLY AND TO AMBULATE ON DETOX UNIT TOLERATED AND SLOWLY AND CAREFULLY AND TO USE HANDRAILS ATTACHED TO LOPEZ NEEDED. PATIENT VERBALIZED UNDERSTANDING OF RECOMMENDATIONS.
[2018-08-18 21:16] VITALS: TEMP 98.6
[2018-08-18] MEDS: THIAMINE HCL 100 MG TABLET (FP) PO SCH (22:17)
[2018-08-18] MEDS: QUEtiapine FUMARATE 50 MG TABLET PO SCH (22:21)
[2018-08-19] MEDS ORDERED: METHADONE HCL 40 MG DISPERSABLE TABLET ONE (04:50)
[2018-08-19] MEDS ORDERED: METHADONE HCL 10 MG TABLET ONE (04:50)
[2018-08-19] MEDS: METHADONE 40 MG, METHADONE 30 MG PO SCH (05:30)
[2018-08-19 06:06] VITALS: BP 111/67; PULSE 85
--- NOTE | 2018-08-19 16:11 | DS ---
[facility] Detox Discharge Summary Admission Date: 08/13/18 Discharge Date: 08/19/18 - History Present History: Alcohol Dependence, Opioid Dependence, MMTP Additional Comments: TODAY, PATIENT REPORTS THAT LETHARGY THAT HE WAS EXPERIENCING OVER LAST FEW PREVIOUS DAYS HAS SUBSIDED CONSIDERABLY. PATIENT IS EAGER TO GO ON TO REHAB. PATIENT GOING TO [facility] ([place], [place]) FOR AFTERCARE. PATIENT WAS DISCHARGED FROM DETOX UNIT IN STABLE MEDICAL CONDITION. Pertinent Past History: Asthma, Hep C, Depression, Bipolar Disorder, G.E.R.D, Nicotine Dependence, H.I.V., Depression, History Of Bronchitis, Leukopenia, Thrombocytopenia, Elavted AST Level, Hypocalcemia, Insomnia. - Physical Exam Results Vital Signs: Vital Signs Temperature 98.6 F 08/19/18 06:05 Pulse Rate 85 08/19/18 06:05 Respiratory Rate 16 08/19/18 06:05 Blood Pressure 111/67 08/19/18 06:05 O2 Sat by Pulse Oximetry (%) Pertinent Admission Physical Exam Findings: WITHDRAWAL SYMPTOMS. Laboratory Tests 08/13/18 08/13/18 08/13/18 07:30 07:30 07:30 WBC 2.2 L RBC 4.23 Hgb 12.7 Hct 37.0 MCV 87.6 MCH 30.1 MCHC 34.4 RDW 12.4 Plt Count 122 L MPV 8.6 Sodium 136 Potassium 3.3 L Chloride 104 Carbon Dioxide 29 Anion Gap 4 L BUN 10.1 Creatinine 1.1 Est GFR (CKD-EPI)AfAm 82.95 Est GFR (CKD-EPI)NonAf 71.57 Random Glucose 103 Calcium 8.1 L Total Bilirubin 0.8 AST 60 H ALT 29 Alkaline Phosphatase 95 Total Protein 7.4 Albumin 2.9 L RPR Titer Nonreactive 08/15/18 11:00 WBC RBC Hgb Hct MCV MCH MCHC RDW Plt Count MPV Sodium Potassium 4.2 Chloride Carbon Dioxide Anion Gap BUN Creatinine Est GFR (CKD-EPI)AfAm Est GFR (CKD-EPI)NonAf Random Glucose Calcium Total Bilirubin AST ALT Alkaline Phosphatase Total Protein Albumin RPR Titer LABS NOTED. - Treatment Hospital Course: Detox Protocol Followed, Detoxed Safely, Responded well, Discharged Condition Good, Rehab Referral Accepted Patient has Accepted a Rehab Referral to: [facility] ([place], [place]). - Medication Discharge Medications: Ambulatory Orders Beclomethasone Dipropionate [Qvar] 8.7 gm IH BID PRN 06/03/15 Albuterol Sulfate Inhaler - [Ventolin HFA Inhaler -] 2 puff IH Q4H PRN #1 inhaler 01/14/17 Budesonide/Formeterol Fumarate [SYMBICORT 80/4.5mcg -] 2 puff IH BID #1 inhaler 01/14/17 Quetiapine Fumarate [Seroquel -] 50 mg PO HS #30 tablet 01/14/17 Ranitidine [Zantac -] 150 mg PO BID #60 tablet 01/14/17 Ritonavir [Norvir -] 100 mg PO DAILY #30 mg 01/14/17 Sulfamethoxazole/Trimethoprim [Bactrim DS -] 1 each PO HS #30 tablet 01/14/17 Bictegrav/Emtricit/Tenofov Ala [Biktarvy 50-200-25 mg Tablet] 1 tablet PO HS 01/20 - Diagnosis (1) Bronchitis Status: Acute (2) Elevated aspartate aminotransferase level Status: Acute (3) Asthma Status: Chronic Qualifiers: Asthma severity: mild Asthma persistence: intermittent Asthma complication type: unspecified Qualified Code(s): J45.20 - Mild intermittent asthma, uncomplicated (4) Cocaine dependence Status: Chronic Qualifiers: Substance use status: in withdrawal Qualified Code(s): F14.23 - Cocaine dependence with withdrawal (5) Depression (emotion) Status: Chronic Qualifiers: Depression Type: dysthymia Qualified Code(s): F34.1 - Dysthymic disorder (6) GERD (gastroesophageal reflux disease) Status: Chronic Qualifiers: Esophagitis presence: esophagitis presence not specified Qualified Code(s) : K21.9 - Gastro-esophageal reflux disease without esophagitis (7) HIV disease Status: Chronic (8) Insomnia Status: Chronic Qualifiers: Insomnia type: unspecified Qualified Code(s): G47.00 - Insomnia, unspecified (9) Methadone maintenance therapy patient Status: Chronic (10) Nicotine dependence Status: Chronic Qualifiers: Nicotine product type: cigarettes Substance use status: uncomplicated Qualified Code(s): F17.210 - Nicotine dependence, cigarettes, uncomplicated (11) Substance induced mood disorder Status: Chronic (12) Drug-induced mood disorder Status: Suspected (13) Alcohol dependence with uncomplicated withdrawal Status: Acute - AMA Did Patient Leave Against Medical Advice: No
== END 2018-08-19 10:10 | disposition home or self-care (01) | DRG 773 ==
LOC: YASAS 15:38 → Y3N 08-13 02:00
PROVIDERS: ADMIT Surgery; ATTEND Surgery
PROC: HZ2ZZZZ Detoxification Services for Substance Abuse Treatment (ICD-10-PCS; principal; 2018-08-13)
DX: F10.230 Alcohol dependence with withdrawal, uncomplicated (principal); F11.20 Opioid dependence, uncomplicated; F14.20 Cocaine dependence, uncomplicated; F12.20 Cannabis dependence, uncomplicated; F17.210 Nicotine dependence, cigarettes, uncomplicated; F19.24 Other psychoactive substance dependence with psychoactive substance-induced mood disorder; F31.9 Bipolar disorder, unspecified; F34.1 Dysthymic disorder; J45.20 Mild intermittent asthma, uncomplicated; Z21 Asymptomatic human immunodeficiency virus [HIV] infection status; D69.6 Thrombocytopenia, unspecified; D72.819 Decreased white blood cell count, unspecified; E83.51 Hypocalcemia; E87.6 Hypokalemia; G47.00 Insomnia, unspecified; K21.9 Gastro-esophageal reflux disease without esophagitis; R94.5 Abnormal results of liver function studies; Z88.0 Allergy status to penicillin; Z91.013 Allergy to seafood; J20.9 Acute bronchitis, unspecified
CPT/HCPCS: 36415; 80053; 84132; 85027; 86593

== ENCOUNTER 2019-01-06 12:44 | Inpatient (IN) | payer OTHER ==
--- NOTE | 2019-01-06 15:47 | HP ---
"CIWA Score Nausea/Vomitin Muscle Tremors: None Anxiety: 0-No Anxiety, at Ease Agitation: 1-Slight > Activity Paroxysmal Sweats: 1-Minimal Palms Moist Orientation: 0-Oriented Tacttile Disturbances: 2-Mild Itch/Numbness/Burn Auditory Disturbances: 0-None Visual Disturbances: 2-Mild Sensitivity Headache: 3-Moderate CIWA-Ar Total Score: 11 - Admission Criteria OASAS Guidelines: Admission for Medically Managed Detox: Requires at least one of the followin. CIWA greater than 12 2. Seizures within the past 24 hours 3. Delirium tremens within the past 24 hours 4. Hallucinations within the past 24 hours 5. Acute intervention needed for co occurring medical disorder 6. Acute intervention needed for co occurring psychiatric disorder 7. Severe withdrawal that cannot be handled at a lower level of care (continued vomiting, continued diarrhea, abnormal vital signs) requiring intravenous medication and/or fluids 8. Admitting History and Physical - Smoking History Smoking history: Current every day smoker Have you smoked in the past 12 months: Yes Aproximately how many cigarettes per day: 15 - Alcohol/Substance Use Hx Alcohol Use: Yes Admission ROS [facility] Allergies/Adverse Reactions: Allergies Allergy/AdvReac Type Severity Reaction Status Date / Time Penicillins Allergy Mild Difficulty Verified 01/06/19 14:13 Breathing Fish Containing Products Allergy Rash Verified 01/06/19 14:13 [Fish Product Derivatives] History of Present Illness: Search Terms: blanquita sandi, 1955 Search Date: 01/06/2019 03:42:00 PM The Drug Utilization Report below displays all of the controlled substance prescriptions, if any, that your patient has filled in the last twelve months. The information displayed on this report is compiled from pharmacy submissions to the Department, and accurately reflects the information as submitted by the pharmacies. This report was requested by: Inga Guevara | Reference #: [id number] There are no results for the search terms that you entered. pt here requesting detox from etoh use , reports 1 pint alcohol daily , latest use today 5 am , reports light-headedness if not drinking , denies blackouts , seizures, tremors, starts drinking after going to program . in MMT @ [facility] , latest dose today @ 70 mg , has been in MMTP x 2 years , reports heroin daily 6-8 bags IVDU in R UE , needles from store , denies sharing currently , shared in the past + HIV , Hep C . cocaine : 50 $/day intermittent via smoking or IV PMHX : hep C dx 2004 (tx 2019) , HIV dx 2004 ( RF= IV ) reports latest taken HIV meds 1 week ago, asthma/ copd , gerd, depression denies SI/ HI pshx : appy age 15 reports loss of brother , father , 2 aunts and a daughter in 2019 Exam Limitations: No Limitations - Ebola screening Have you traveled outside of the country in the last 21 days: No Have you had contact with anyone from an Ebola affected area: No Do you have a fever: No - Review of Systems Constitutional: Loss of Appetite EENT: reports: Other (dentures) Respiratory: reports: See HPI, SOB with Exertion Cardiac: reports: No Symptoms Reported GI: reports: Poor Appetite : reports: No Symptoms Reported Musculoskeletal: reports: Joint Pain Integumentary: reports: See HPI Neuro: reports: Headache Endocrine: reports: No Symptoms Reported Psychiatric: reports: Orientated x3, Anxious Patient History - Patient Medical History Hx Anemia: No Hx Asthma: Yes Hx Chronic Obstructive Pulmonary Disease (COPD): No Hx Cancer: No Hx Cardiac Disorders: No Hx Congestive Heart Failure: No Hx Hypertension: No Hx Hypercholesterolemia: No Hx Pacemaker: No HX Cerebrovascular Accident: No Hx Seizures: No Hx Dementia: No Hx Diabetes: No Hx Gastrointestinal Disorders: Yes Hx Liver Disease: No Hx Genitourinary Disorders: No Hx Sexually Transmitted Disorders: Yes Hx Renal Disease (ESRD): No Hx Thyroid Disease: No Hx Human Immunodeficiency Virus (HIV): Yes (since 2004) Hx Hepatitis C: Yes (NOT TREATED) Hx Depression: Yes Hx Suicide Attempt: No Hx Bipolar Disorder: Yes Hx Schizophrenia: No - Patient Surgical History Past Surgical History: Yes Hx Neurologic Surgery: No Hx Cataract Extraction: No Hx Cardiac Surgery: No Hx Lung Surgery: No Hx Breast Surgery: No Hx Breast Biopsy: No Hx Abdominal Surgery: No Hx Appendectomy: Yes (at age of 5) Hx Cholecystectomy: No Hx Genitourinary Surgery: No Hx Section: No Hx Orthopedic Surgery: No Anesthesia Reaction: No - PPD History Date: 07/06/16 Results: 0 - Smoking Cessation Smoking history: Current every day smoker Have you smoked in the past 12 months: Yes Aproximately how many cigarettes per day: 15 Cigars Per Day: 0 Hx Chewing Tobacco Use: No Initiated information on smoking cessation: Yes 'Breaking Loose' booklet given: 01/06/19 - Substances abused Alcohol Substance route: Oral Frequency: Daily Amount used: 1 pint of vodka Age of first use: 10 Date of last use: 01/06/19 Heroin Substance route: Injection Frequency: Daily Amount used: 200 hundred dollars. Age of first use: 15 Date of last use: 01/06/19 Crack Substance route: Smoking Frequency: Daily Amount used: 100 dollars Age of first use: 22 Date of last use: 01/06/19 Cocaine Substance route: Injection Frequency: 3-6 times per week Amount used: 80 dollars Age of first use: 20 Date of last use: 01/06/19 Admission Physical Exam S - Vital Signs Vital Signs: Vital Signs - 24 hr 01/06/19 14:07 Temperature 97.9 F Pulse Rate 66 Respiratory 20 Rate Blood Pressure 134/84 - Physical General Appearance: Yes: Mild Distress, Anxious HEENTM: Yes: EOMI, Hearing grossly Normal, Normocephalic, Normal Voice Respiratory: Yes: Chest Non-Tender, Lungs Clear, Normal Breath Sounds, No Respiratory Distress, No Accessory Muscle Use Neck: Yes: No masses,lesions,Nodules, Trachea in good position Cardiology: Yes: Regular Rhythm, Regular Rate, S1, S2 Abdominal: Yes: Non Tender, Soft Musculoskeletal: Yes: Gait Steady Extremities: Yes: Normal Range of Motion, Non-Tender, Other (old r 3rd finger injury ( childhood - finger caught in door ) w/ deformity) Neurological: Yes: Fully Oriented, Alert, Motor Strength 5/5, Normal Mood/Affect Integumentary: Yes: Warm, Track [place] - Diagnostic (1) Alcohol dependence with uncomplicated withdrawal Current Visit: Yes Status: Acute (2) Cocaine dependence Current Visit: Yes Status: Chronic (3) Opioid dependence on agonist therapy Current Visit: Yes Status: Chronic Breathalyzer - Breathalyzer Breathalyzer: 0 Urine Drug Screen - Test Device Lot number: [id number] Expiration date: 08/31/20 - Control Is test valid?: Yes - Results Drug screen NEGATIVE: No Urine drug screen results: MARIJA-Cocaine, FEN-Fentanyl, MTD-Methadone Inpatient Rehab Admission - Rehab Decision to Admit Inpatient rehab admission?: No"
[2019-01-06] MEDS ORDERED: ALBUTEROL SO4 8 GM HFA INHALER IH PRN (15:51)
[2019-01-06] MEDS ORDERED: PATIENT'S OWN MEDICATION (NON-FORMULARY) (Beclomethasone Dipropionate [Qvar] 8.7 GM) IH PRN (15:51)
[2019-01-06] MEDS ORDERED: MENTHOL/PHENOL 1 EACH UD MM PRN (15:58)
[2019-01-06] MEDS ORDERED: BISMUTH SUBSALICYLATE 524 MG/30 ML UD PO PRN (15:58)
[2019-01-06] MEDS ORDERED: MAG HYDROX/AL HYDROX/SIMETH 30 ML UNIT-DOSE CUP PO PRN (15:58)
[2019-01-06] MEDS ORDERED: hydrOXYzine PAMOATE 25 MG CAPSULE (FP) PO PRN (15:58)
[2019-01-06] MEDS ORDERED: MAGNESIUM CITRATE 300 ML BOTTLE PO PRN (15:58)
[2019-01-06] MEDS ORDERED: MAGNESIUM HYDROX 2400MG/30ML ORAL SUSPENSION 30 ML CUP PO PRN (15:58)
[2019-01-06] MEDS ORDERED: MELATONIN 5 MG TABLETS PO PRN (15:58)
[2019-01-06] MEDS ORDERED: ACETAMINOPHEN 325 MG TABLET (FP) PO PRN ×2 (15:58)
[2019-01-06] MEDS ORDERED: IBUPROFEN 400 MG TABLET (FP) PO PRN (15:58)
[2019-01-06] MEDS ORDERED: diazePAM 5 MG TABLET PO PRN (16:01)
[2019-01-06] MEDS: diazePAM 5 MG TABLET PO SCH ×2 (18:04→22:17)
[2019-01-06] MEDS: PANTOPRAZOLE 20 MG TABLET (FP) PO SCH (18:04)
[2019-01-06] MEDS: BICTEGRAV/EMTRICIT/TENOFOV (BIKTARVY) 50-200-25 MG TABLET PO SCH (18:06)
[2019-01-06] MEDS: TIOTROPIUM BROMIDE 2.5 MCG (SPIRIVA) RESPIMAT INHALER IH SCH (18:06)
[2019-01-06] MEDS: FLUTICASONE PROP 0.05% 16 GM NASAL SPRAY NS SCH (18:06)
[2019-01-06] MEDS: SULFAMETHOXAZOLE/TRIMETHOPRIM 800MG/160MG D.S. TABLET PO SCH (22:16)
[2019-01-06] MEDS: THIAMINE HCL 100 MG TABLET (FP) PO SCH (22:16)
[2019-01-06] MEDS: BUDESONIDE/FORMETEROL FUMARATE 80/4.5 mcg INHALER IH SCH (22:17)
[2019-01-06] MEDS: VARENICLINE TARTRATE 1 MG TAB PO SCH (22:17)
[2019-01-07] MEDS: diazePAM 5 MG TABLET PO SCH ×3 (05:29→22:56)
[2019-01-07] MEDS ORDERED: diazePAM 5 MG TABLET PO SCH (06:00)
[2019-01-07] MEDS: BICTEGRAV/EMTRICIT/TENOFOV (BIKTARVY) 50-200-25 MG TABLET PO SCH (08:40)
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
[2019-01-07] MEDS ORDERED: diazePAM 5 MG TABLET PO PRN (10:05)
[2019-01-07] MEDS ORDERED: diazePAM 5 MG TABLET PO ONE (10:05)
--- NOTE | 2019-01-07 10:10 | PN ---
[facility] CIWA - CIWA Score Nausea/Vomitin-Mild Nausea/No Vomiting Muscle Tremors: 2 Anxiety: 2 Agitation: 2 Paroxysmal Sweats: No Perspiration Orientation: 0-Oriented Tacttile Disturbances: 1-Very Mild Itch/Numbness Auditory Disturbances: 0-None Visual Disturbances: 0-None Headache: 1-Very Mild CIWA-Ar Total Score: 9 BHS Progress Note (SOAP) Subjective: alert,irritable,anxious,interrupted sleep,nausea Objective: 01/07/19 10:09 Vital Signs Temperature 99.3 F 01/07/19 09:13 Pulse Rate 81 01/07/19 09:13 Respiratory Rate 18 01/07/19 09:13 Blood Pressure 138/75 01/07/19 09:13 O2 Sat by Pulse Oximetry (%) Assessment: 01/07/19 10:09 withdrawal symptom Plan: continue detox valium regimen
[2019-01-07] MEDS ORDERED: METHADONE HCL 10 MG TABLET PO SCH (10:45)
[2019-01-07] MEDS: BUDESONIDE/FORMETEROL FUMARATE 80/4.5 mcg INHALER IH SCH ×2 (10:46→22:56)
[2019-01-07] MEDS: VARENICLINE TARTRATE 1 MG TAB PO SCH ×2 (10:46→22:54)
[2019-01-07] MEDS: PANTOPRAZOLE 20 MG TABLET (FP) PO SCH (10:46)
[2019-01-07] MEDS: PRENATAL VITAMINS W/ FOLIC ACID TABLET (FP) PO SCH (10:46)
[2019-01-07] MEDS: FLUTICASONE PROP 0.05% 16 GM NASAL SPRAY NS SCH (10:47)
[2019-01-07 10:51] LABS: HEMATOCRIT 36.1 % (35.4-49); HEMOGLOBIN 12.4 GM/dL (11.7-16.9); MCH 29.9 pg (25.7-33.7); MCHC 34.2 g/dl (32.0-35.9); MEAN CELL VOLUME 87.3 fl (80-96); MEAN PLT VOLUME 8.1 fl (7.5-11.1); PLATELET COUNT 134 K/MM3 (134-434); RBC 4.14 M/mm3 (4.00-5.60); RDW 13.1 % (11.9-15.9); WHITE BLOOD COUNT 2.2 K/mm3 (4.0-10.0)
[2019-01-07 10:54] LABS: ALBUMIN 2.7 g/dl (3.4-5.0); BILIRUBIN,TOTAL 0.4 mg/dL (0.2-1); BLOOD UREA NITROGEN 10.8 mg/dL (7-18); CALCIUM 8.1 mg/dL (8.5-10.1); CREATININE 1.1 mg/dL (0.55-1.3); POTASSIUM 4.1 mmol/L (3.5-5.1)
[2019-01-07] MEDS: TIOTROPIUM BROMIDE 2.5 MCG (SPIRIVA) RESPIMAT INHALER IH SCH (11:15)
[2019-01-07] MEDS ORDERED: METHADONE HCL 10 MG TABLET ONE (12:15)
[2019-01-07] MEDS ORDERED: METHADONE HCL 40 MG DISPERSABLE TABLET ONE (12:16)
[2019-01-07] MEDS: METHADONE 40 MG, METHADONE 30 MG PO SCH (12:16)
[2019-01-07] MEDS: QUEtiapine FUMARATE 50 MG TABLET PO SCH (22:53)
[2019-01-07] MEDS: SULFAMETHOXAZOLE/TRIMETHOPRIM 800MG/160MG D.S. TABLET PO SCH (22:53)
[2019-01-07] MEDS: THIAMINE HCL 100 MG TABLET (FP) PO SCH (22:54)
[2019-01-08] MEDS ORDERED: METHADONE HCL 10 MG TABLET ONE (04:33)
[2019-01-08] MEDS ORDERED: METHADONE HCL 40 MG DISPERSABLE TABLET ONE (04:34)
[2019-01-08] MEDS ORDERED: diazePAM 5 MG TABLET PO ONE (06:00)
[2019-01-08] MEDS: METHADONE 40 MG, METHADONE 30 MG PO SCH (06:43)
[2019-01-08] MEDS: diazePAM 5 MG TABLET PO SCH ×3 (06:43→22:02)
[2019-01-08] MEDS: BICTEGRAV/EMTRICIT/TENOFOV (BIKTARVY) 50-200-25 MG TABLET PO SCH (08:00)
--- NOTE | 2019-01-08 09:43 | PN ---
S CIWA - CIWA Score Nausea/Vomitin-Mild Nausea/No Vomiting Muscle Tremors: 2 Anxiety: 2 Agitation: 2 Paroxysmal Sweats: No Perspiration Orientation: 0-Oriented Tacttile Disturbances: 0-None Auditory Disturbances: 0-None Visual Disturbances: 0-None Headache: 1-Very Mild CIWA-Ar Total Score: 8 BHS Progress Note (SOAP) Subjective: alert,irritable,anxious,interrupted sleep,pain in the body Objective: 01/08/19 09:41 Vital Signs Temperature 97.7 F 01/08/19 06:07 Pulse Rate 75 01/08/19 06:07 Respiratory Rate 18 01/08/19 06:07 Blood Pressure 124/70 01/08/19 06:07 O2 Sat by Pulse Oximetry (%) Laboratory Last Values WBC 2.2 K/mm3 (4.0-10.0) L 01/07/19 08:15 RBC 4.14 M/mm3 (4.00-5.60) 01/07/19 08:15 Hgb 12.4 GM/dL (11.7-16.9) 01/07/19 08:15 Hct 36.1 % (35.4-49) 01/07/19 08:15 MCV 87.3 fl (80-96) 01/07/19 08:15 MCH 29.9 pg (25.7-33.7) 01/07/19 08:15 MCHC 34.2 g/dl (32.0-35.9) 01/07/19 08:15 RDW 13.1 % (11.9-15.9) 01/07/19 08:15 Plt Count 134 K/MM3 (134-434) 01/07/19 08:15 MPV 8.1 fl (7.5-11.1) 01/07/19 08:15 Sodium 138 mmol/L (136-145) 01/07/19 08:15 Potassium 4.1 mmol/L (3.5-5.1) 01/07/19 08:15 Chloride 106 mmol/L (98-107) 01/07/19 08:15 Carbon Dioxide 29 mmol/L (21-32) 01/07/19 08:15 Anion Gap 3 MMOL/L (8-16) L 01/07/19 08:15 BUN 10.8 mg/dL (7-18) 01/07/19 08:15 Creatinine 1.1 mg/dL (0.55-1.3) 01/07/19 08:15 Est GFR (CKD-EPI)AfAm 82.95 01/07/19 08:15 Est GFR (CKD-EPI)NonAf 71.57 01/07/19 08:15 Random Glucose 84 mg/dL (74-106) 01/07/19 08:15 Calcium 8.1 mg/dL (8.5-10.1) L 01/07/19 08:15 Total Bilirubin 0.4 mg/dL (0.2-1) 01/07/19 08:15 AST 22 U/L (15-37) 01/07/19 08:15 ALT 11 U/L (13-61) L 01/07/19 08:15 Alkaline Phosphatase 77 U/L (45-117) 01/07/19 08:15 Total Protein 7.0 g/dl (6.4-8.2) 01/07/19 08:15 Albumin 2.7 g/dl (3.4-5.0) L 01/07/19 08:15 RPR Titer Nonreactive (NONREACTIVE) 01/07/19 08:15 Assessment: 01/08/19 09:42 withdrawal symptom Plan: continue detox valium regimen wbc is 2,200,probably due to hiv
[2019-01-08] MEDS: PRENATAL VITAMINS W/ FOLIC ACID TABLET (FP) PO SCH (10:08)
[2019-01-08] MEDS: FLUTICASONE PROP 0.05% 16 GM NASAL SPRAY NS SCH (10:08)
[2019-01-08] MEDS: VARENICLINE TARTRATE 1 MG TAB PO SCH ×2 (10:08→22:03)
[2019-01-08] MEDS: PANTOPRAZOLE 20 MG TABLET (FP) PO SCH (10:08)
[2019-01-08] MEDS: BUDESONIDE/FORMETEROL FUMARATE 80/4.5 mcg INHALER IH SCH ×2 (10:09→22:03)
[2019-01-08] MEDS: TIOTROPIUM BROMIDE 2.5 MCG (SPIRIVA) RESPIMAT INHALER IH SCH (10:09)
[2019-01-08] MEDS: THIAMINE HCL 100 MG TABLET (FP) PO SCH (22:02)
[2019-01-08] MEDS: QUEtiapine FUMARATE 50 MG TABLET PO SCH (22:02)
[2019-01-08] MEDS: SULFAMETHOXAZOLE/TRIMETHOPRIM 800MG/160MG D.S. TABLET PO SCH (22:02)
[2019-01-09] MEDS ORDERED: METHADONE HCL 40 MG DISPERSABLE TABLET ONE (04:08)
[2019-01-09] MEDS ORDERED: METHADONE HCL 10 MG TABLET ONE (04:08)
[2019-01-09] MEDS: METHADONE 40 MG, METHADONE 30 MG PO SCH (05:17)
[2019-01-09] MEDS: diazePAM 5 MG TABLET PO SCH ×2 (05:17→17:58)
[2019-01-09] MEDS: BICTEGRAV/EMTRICIT/TENOFOV (BIKTARVY) 50-200-25 MG TABLET PO SCH (07:39)
[2019-01-09] MEDS: BUDESONIDE/FORMETEROL FUMARATE 80/4.5 mcg INHALER IH SCH ×2 (10:32→22:08)
[2019-01-09] MEDS: FLUTICASONE PROP 0.05% 16 GM NASAL SPRAY NS SCH (10:33)
[2019-01-09] MEDS: PANTOPRAZOLE 20 MG TABLET (FP) PO SCH (10:33)
[2019-01-09] MEDS: PRENATAL VITAMINS W/ FOLIC ACID TABLET (FP) PO SCH (10:33)
[2019-01-09] MEDS: VARENICLINE TARTRATE 1 MG TAB PO SCH ×2 (10:34→22:08)
[2019-01-09] MEDS: TIOTROPIUM BROMIDE 2.5 MCG (SPIRIVA) RESPIMAT INHALER IH SCH (10:56)
--- NOTE | 2019-01-09 11:49 | PN ---
[facility] CIWA - CIWA Score Nausea/Vomitin-No Nausea/No Vomiting Muscle Tremors: 1-None Visible, but [place] Anxiety: 0-No Anxiety, at Ease Agitation: 2 Paroxysmal Sweats: No Perspiration Orientation: 0-Oriented Tacttile Disturbances: 0-None Auditory Disturbances: 0-None Visual Disturbances: 0-None Headache: 0-None Present CIWA-Ar Total Score: 3 BHS Progress Note (SOAP) Subjective: irritable tired Objective: 01/09/19 11:47 Vital Signs Temperature 97.9 F 01/09/19 09:36 Pulse Rate 76 01/09/19 09:36 Respiratory Rate 18 01/09/19 09:36 Blood Pressure 98/61 01/09/19 09:36 O2 Sat by Pulse Oximetry (%) aaox3 ambulating no acute distress Assessment: 01/09/19 11:48 mild withdrawals Plan: continue detox d/c in am
[2019-01-09] MEDS ORDERED: BICTEGRAV/EMTRICIT/TENOFOV (BIKTARVY) 50-200-25 MG TABLET PO ONE (12:45)
[2019-01-09] MEDS: SULFAMETHOXAZOLE/TRIMETHOPRIM 800MG/160MG D.S. TABLET PO SCH (22:08)
[2019-01-09] MEDS: THIAMINE HCL 100 MG TABLET (FP) PO SCH (22:08)
[2019-01-09] MEDS: QUEtiapine FUMARATE 50 MG TABLET PO SCH (22:08)
[2019-01-10] MEDS ORDERED: METHADONE HCL 10 MG TABLET ONE (04:54)
[2019-01-10] MEDS ORDERED: METHADONE HCL 40 MG DISPERSABLE TABLET ONE (04:55)
[2019-01-10] MEDS: METHADONE 40 MG, METHADONE 30 MG PO SCH (05:25)
[2019-01-10] MEDS ORDERED: diazePAM 5 MG TABLET PO ONE (06:00)
--- NOTE | 2019-01-10 08:47 | DS ---
[facility] Detox Discharge Summary Admission Date: 01/06/19 Discharge Date: 01/10/19 - History Present History: Alcohol Dependence, Cocaine Dependence, MMTP - Physical Exam Results Vital Signs: Vital Signs Temperature 98.1 F 01/10/19 06:15 Pulse Rate 92 H 01/10/19 06:15 Respiratory Rate 20 01/10/19 06:15 Blood Pressure 133/75 01/10/19 06:15 O2 Sat by Pulse Oximetry (%) Pertinent Admission Physical Exam Findings: pt arrived in withdrawals Vital Signs Temperature 98.1 F 01/10/19 06:15 Pulse Rate 92 H 01/10/19 06:15 Respiratory Rate 20 01/10/19 06:15 Blood Pressure 133/75 01/10/19 06:15 O2 Sat by Pulse Oximetry (%) Laboratory Tests 01/07/19 01/07/19 01/07/19 08:15 08:15 08:15 WBC 2.2 L RBC 4.14 Hgb 12.4 Hct 36.1 MCV 87.3 MCH 29.9 MCHC 34.2 RDW 13.1 Plt Count 134 MPV 8.1 Sodium 138 Potassium 4.1 Chloride 106 Carbon Dioxide 29 Anion Gap 3 L BUN 10.8 Creatinine 1.1 Est GFR (CKD-EPI)AfAm 82.95 Est GFR (CKD-EPI)NonAf 71.57 Random Glucose 84 Calcium 8.1 L Total Bilirubin 0.4 AST 22 ALT 11 L Alkaline Phosphatase 77 Total Protein 7.0 Albumin 2.7 L RPR Titer Nonreactive today pt is aaox3 ambulating no acute distress - Treatment Hospital Course: Detox Protocol Followed, Detoxed Safely, Responded well, Discharged Condition Good, Rehab Referral Accepted Patient has Accepted a Rehab Referral to: pt referred to inpatient rehab - Medication Discharge Medications: Ambulatory Orders Beclomethasone Dipropionate [Qvar] 8.7 gm IH BID PRN 06/03/15 Albuterol Sulfate Inhaler - [Ventolin HFA Inhaler -] 2 puff IH Q4H PRN #1 inhaler 01/14/17 Budesonide/Formeterol Fumarate [SYMBICORT 80/4.5mcg -] 2 puff IH BID #1 inhaler 01/14/17 Sulfamethoxazole/Trimethoprim [Bactrim DS -] 1 each PO HS #30 tablet 01/14/17 Bictegrav/Emtricit/Tenofov Ala [Biktarvy 50-200-25 mg Tablet] 1 tablet PO DAILY 08/12/18 Fluticasone Propionate [Flonase Allergy Relief] 9.9 ml NS DAILY 01/06/19 Loratadine [Claritin -] 10 mg PO DAILY PRN 01/06/19 Methadone [Dolophine -] 70 mg PO DAILY 01/06/19 Omeprazole 20 mg PO DAILY 01/06/19 Sertraline HCl [Zoloft -] 50 mg PO DAILY 01/06/19 Tiotropium Yoder [Spiriva Respimat] 4 gm IH DAILY 01/06/19 Topiramate 25 mg PO DAILY 01/06/19 Varenicline Tartrate [Chantix] 1 mg PO BID 01/06/19 - Diagnosis (1) Alcohol dependence with uncomplicated withdrawal Current Visit: Yes Status: Chronic (2) Cocaine dependence Current Visit: Yes Status: Chronic Qualifiers: Substance use status: uncomplicated Qualified Code(s): F14.20 - Cocaine dependence, uncomplicated (3) Substance-induced sleep disorder Current Visit: Yes Status: Acute (4) Depressive disorder Current Visit: Yes Status: Chronic (5) Opioid dependence on agonist therapy Current Visit: Yes Status: Chronic (6) MDD (major depressive disorder) Current Visit: Yes Status: Ruled-out (7) Back pain Current Visit: No Status: Acute (8) Elevated aspartate aminotransferase level Current Visit: No Status: Acute (9) Hypokalemia Current Visit: No Status: Acute (10) Mood disorder Current Visit: No Status: Acute (11) Sedative, hypnotic or anxiolytic abuse Current Visit: No Status: Acute (12) Alcohol dependence, uncomplicated Current Visit: Yes Status: Chronic (13) Asthma Current Visit: Yes Status: Chronic Qualifiers: Asthma severity: mild Asthma persistence: intermittent Asthma complication type: unspecified Qualified Code(s): J45.20 - Mild intermittent asthma, uncomplicated (14) Cannabis dependence Current Visit: Yes Status: Chronic (15) Depression (emotion) Current Visit: No Status: Chronic Qualifiers: Depression Type: dysthymia Qualified Code(s): F34.1 - Dysthymic disorder (16) GERD (gastroesophageal reflux disease) Current Visit: Yes Status: Chronic Qualifiers: Esophagitis presence: without esophagitis Qualified Code(s): K21.9 - Gastro -esophageal reflux disease without esophagitis (17) HIV disease Current Visit: Yes Status: Chronic (18) Hepatitis C Current Visit: Yes Status: Chronic Qualifiers: Viral hepatitis chronicity: chronic Hepatic coma status: without hepatic coma Qualified Code(s): B18.2 - Chronic viral hepatitis C (19) Insomnia Current Visit: No Status: Chronic Qualifiers: Insomnia type: unspecified Qualified Code(s): G47.00 - Insomnia, unspecified (20) Methadone maintenance therapy patient Current Visit: Yes Status: Chronic (21) Nicotine dependence Current Visit: Yes Status: Chronic Qualifiers: Nicotine product type: cigarettes Substance use status: uncomplicated Qualified Code(s): F17.210 - Nicotine dependence, cigarettes, uncomplicated (22) Substance induced mood disorder Current Visit: No Status: Chronic (23) Drug-induced mood disorder Current Visit: No Status: Suspected (24) Major depressive disorder Current Visit: No Status: Suspected - AMA Did Patient Leave Against Medical Advice: No
[2019-01-10 09:30] VITALS: BP 130/78; PULSE 78; TEMP 97.9
[2019-01-10] MEDS ORDERED: BICTEGRAV/EMTRICIT/TENOFOV (BIKTARVY) 50-200-25 MG TABLET PO SCH (10:00)
== END 2019-01-10 11:30 | disposition other institution (70) | DRG 773 ==
LOC: YASAS 12:44 → Y6N 17:13
PROVIDERS: ADMIT Allergy & Immunology; ATTEND Allergy & Immunology
PROC: HZ2ZZZZ Detoxification Services for Substance Abuse Treatment (ICD-10-PCS; principal; 2019-01-06)
DX: F10.230 Alcohol dependence with withdrawal, uncomplicated (principal); F11.20 Opioid dependence, uncomplicated; F14.20 Cocaine dependence, uncomplicated; F12.20 Cannabis dependence, uncomplicated; F17.210 Nicotine dependence, cigarettes, uncomplicated; F19.282 Other psychoactive substance dependence with psychoactive substance-induced sleep disorder; F19.24 Other psychoactive substance dependence with psychoactive substance-induced mood disorder; F31.9 Bipolar disorder, unspecified; F34.1 Dysthymic disorder; Z21 Asymptomatic human immunodeficiency virus [HIV] infection status; J45.20 Mild intermittent asthma, uncomplicated; K21.9 Gastro-esophageal reflux disease without esophagitis; B18.2 Chronic viral hepatitis C; G47.00 Insomnia, unspecified; Z88.0 Allergy status to penicillin; Z91.013 Allergy to seafood
CPT/HCPCS: 36415; 80053; 85027; 86593

== ENCOUNTER 2020-09-02 15:56 | Inpatient (IN) | payer OTHER ==
[2020-09-02 17:32] VITALS: BMI 21.9
[2020-09-03] MEDS ORDERED: MAGNESIUM HYDROX 2400MG/30ML ORAL SUSPENSION 30 ML CUP PO PRN (00:26)
[2020-09-03] MEDS ORDERED: guaiFENesin 200 MG/10 ML 10 ML UNIT-DOSE CUPS PO PRN (00:26)
[2020-09-03] MEDS ORDERED: NICOTINE POLACRILEX 2 MG GUM BC PRN (00:26)
[2020-09-03] MEDS ORDERED: LOPERAMIDE HCL 2 MG CAPSULE PO PRN (00:26)
[2020-09-03] MEDS ORDERED: ACETAMINOPHEN 325 MG TABLET (FP) PO PRN (00:26)
[2020-09-03] MEDS ORDERED: MAG HYDROX/AL HYDROX/SIMETH 30 ML UNIT-DOSE CUP PO PRN (00:26)
[2020-09-03] MEDS ORDERED: P-EPHED 60MG/TRIPROLIDI 2.5MG TABLET PO PRN (00:26)
[2020-09-03] MEDS ORDERED: MAGNESIUM CITRATE 300 ML BOTTLE PO PRN (00:26)
[2020-09-03] MEDS ORDERED: IBUPROFEN 400 MG TABLET (FP) PO PRN (00:26)
[2020-09-03] MEDS ORDERED: TUBERCULIN PPD 5 TU/0.1ML VIAL ID ONE (01:14)
[2020-09-03] MEDS ORDERED: methaDONE HCL 40 MG DISPERSABLE TABLET PO SCH (08:45)
[2020-09-03] MEDS ORDERED: methaDONE HCL 40 MG DISPERSABLE TABLET ONE (08:52)
[2020-09-03] MEDS ORDERED: methaDONE HCL 10 MG TABLET ONE (08:53)
[2020-09-03] MEDS: NICOTINE 14 MG/24 HOURS TOPICAL PATCH TD SCH (10:04)
[2020-09-03] MEDS: methaDONE 40 MG, methaDONE 30 MG PO SCH (10:04)
[2020-09-03] MEDS: PRENATAL VITAMINS W/ FOLIC ACID TABLET (FP) PO SCH (10:04)
[2020-09-03] MEDS: NICOTINE 7 MG/24 HOURS TOPICAL PATCH TD SCH (10:05)
[2020-09-03 13:31] LABS: URINE COLOR YELLOW
[2020-09-03 13:32] LABS: URINE APPEARANCE CLEAR; URINE BILIRUBIN NEGATIVE (NEGATIVE); URINE GLUCOSE (UA) NEGATIVE (NEGATIVE); URINE KETONE TRACE (NEGATIVE); URINE LEUK ESTERASE NEGATIVE (NEGATIVE); URINE NITRITE NEGATIVE (NEGATIVE); URINE PROTEIN 1+ (NEGATIVE); URINE RBC 0-3 /uL (0-23.9); URINE UROBILINOGEN 0.2 mg/dL (0.2-1.0); URINE WBC 0-3 /uL (0-25.8)
[2020-09-03] MEDS: THIAMINE HCL 100 MG TABLET (FP) PO SCH (21:35)
[2020-09-03] MEDS: QUEtiapine FUMARATE 50 MG TABLET PO SCH (21:35)
[2020-09-03] MEDS: MELATONIN 5 MG TABLETS PO SCH (21:36)
[2020-09-04] MEDS ORDERED: methaDONE HCL 40 MG DISPERSABLE TABLET ONE (03:10)
[2020-09-04] MEDS ORDERED: methaDONE HCL 10 MG TABLET ONE (03:10)
[2020-09-04] MEDS: methaDONE 40 MG, methaDONE 30 MG PO SCH (06:25)
[2020-09-04] MEDS: PRENATAL VITAMINS W/ FOLIC ACID TABLET (FP) PO SCH (09:54)
[2020-09-04] MEDS: NICOTINE 7 MG/24 HOURS TOPICAL PATCH TD SCH (09:54)
[2020-09-04] MEDS: NICOTINE 14 MG/24 HOURS TOPICAL PATCH TD SCH (09:54)
[2020-09-04] MEDS: THIAMINE HCL 100 MG TABLET (FP) PO SCH (21:14)
[2020-09-04] MEDS: MELATONIN 5 MG TABLETS PO SCH (21:14)
[2020-09-04] MEDS: QUEtiapine FUMARATE 50 MG TABLET PO SCH (21:15)
[2020-09-05] MEDS ORDERED: methaDONE HCL 40 MG DISPERSABLE TABLET ONE (03:13)
[2020-09-05] MEDS ORDERED: methaDONE HCL 10 MG TABLET ONE (03:14)
[2020-09-05] MEDS: methaDONE 40 MG, methaDONE 30 MG PO SCH (06:26)
[2020-09-05] MEDS ORDERED: ALBUTEROL SO4 HFA INHALER IH PRN (09:18)
[2020-09-05] MEDS ORDERED: TIOTROPIUM BROMIDE 2.5 MCG (SPIRIVA) RESPIMAT INHALER IH SCH (10:00)
[2020-09-05] MEDS: NICOTINE 7 MG/24 HOURS TOPICAL PATCH TD SCH (10:19)
[2020-09-05] MEDS: NICOTINE 14 MG/24 HOURS TOPICAL PATCH TD SCH (10:19)
[2020-09-05] MEDS: PRENATAL VITAMINS W/ FOLIC ACID TABLET (FP) PO SCH (10:19)
[2020-09-05] MEDS: BUDESONIDE/FORMETEROL FUMARATE 80/4.5 mcg INHALER IH SCH ×2 (10:21→21:25)
[2020-09-05] MEDS ORDERED: MOMETASONE FUROATE 110 MCG/IH INHALER IH PRN ×2 (12:45→12:47)
[2020-09-05] MEDS: PANTOPRAZOLE 20 MG TABLET PO SCH (14:03)
[2020-09-05] MEDS: BICTEGRAV/EMTRICIT/TENOFOV (BIKTARVY) 50-200-25 MG TABLET PO SCH (14:21)
[2020-09-05] MEDS: SULFAMETHOXAZOLE/TRIMETHOPRIM 800MG/160MG D.S. TABLET PO SCH (21:25)
[2020-09-05] MEDS: MELATONIN 5 MG TABLETS PO SCH (21:25)
[2020-09-05] MEDS: THIAMINE HCL 100 MG TABLET (FP) PO SCH (21:25)
[2020-09-05] MEDS: QUEtiapine FUMARATE 50 MG TABLET PO SCH (21:25)
[2020-09-06] MEDS ORDERED: methaDONE HCL 40 MG DISPERSABLE TABLET ONE (03:28)
[2020-09-06] MEDS ORDERED: methaDONE HCL 10 MG TABLET ONE (03:29)
[2020-09-06] MEDS: methaDONE 40 MG, methaDONE 30 MG PO SCH (06:25)
[2020-09-06] MEDS: NICOTINE 7 MG/24 HOURS TOPICAL PATCH TD SCH (10:01)
[2020-09-06] MEDS: PRENATAL VITAMINS W/ FOLIC ACID TABLET (FP) PO SCH (10:01)
[2020-09-06] MEDS: PANTOPRAZOLE 20 MG TABLET PO SCH (10:01)
[2020-09-06] MEDS: BICTEGRAV/EMTRICIT/TENOFOV (BIKTARVY) 50-200-25 MG TABLET PO SCH (10:01)
[2020-09-06] MEDS: NICOTINE 14 MG/24 HOURS TOPICAL PATCH TD SCH (10:01)
[2020-09-06] MEDS: BUDESONIDE/FORMETEROL FUMARATE 80/4.5 mcg INHALER IH SCH ×2 (10:21→21:16)
[2020-09-06] MEDS: TIOTROPIUM BROMIDE 2.5 MCG (SPIRIVA) RESPIMAT INHALER IH SCH (10:21)
[2020-09-06] MEDS: THIAMINE HCL 100 MG TABLET (FP) PO SCH (21:15)
[2020-09-06] MEDS: QUEtiapine FUMARATE 50 MG TABLET PO SCH (21:15)
[2020-09-06] MEDS: SULFAMETHOXAZOLE/TRIMETHOPRIM 800MG/160MG D.S. TABLET PO SCH (21:15)
[2020-09-06] MEDS: MELATONIN 5 MG TABLETS PO SCH (21:15)
[2020-09-07] MEDS ORDERED: methaDONE HCL 10 MG TABLET ONE (04:30)
[2020-09-07] MEDS ORDERED: methaDONE HCL 40 MG DISPERSABLE TABLET ONE (04:30)
[2020-09-07] MEDS: methaDONE 40 MG, methaDONE 30 MG PO SCH (06:50)
[2020-09-07] MEDS: BICTEGRAV/EMTRICIT/TENOFOV (BIKTARVY) 50-200-25 MG TABLET PO SCH (08:04)
[2020-09-07] MEDS: PANTOPRAZOLE 20 MG TABLET PO SCH (10:06)
[2020-09-07] MEDS: NICOTINE 14 MG/24 HOURS TOPICAL PATCH TD SCH (10:06)
[2020-09-07] MEDS: PRENATAL VITAMINS W/ FOLIC ACID TABLET (FP) PO SCH (10:06)
[2020-09-07] MEDS: BUDESONIDE/FORMETEROL FUMARATE 80/4.5 mcg INHALER IH SCH ×2 (10:07→21:22)
[2020-09-07] MEDS: TIOTROPIUM BROMIDE 2.5 MCG (SPIRIVA) RESPIMAT INHALER IH SCH (10:07)
[2020-09-07] MEDS: NICOTINE 7 MG/24 HOURS TOPICAL PATCH TD SCH (10:21)
[2020-09-07] MEDS: QUEtiapine FUMARATE 50 MG TABLET PO SCH (21:21)
[2020-09-07] MEDS: THIAMINE HCL 100 MG TABLET (FP) PO SCH (21:21)
[2020-09-07] MEDS: SULFAMETHOXAZOLE/TRIMETHOPRIM 800MG/160MG D.S. TABLET PO SCH (21:21)
[2020-09-07] MEDS: MELATONIN 5 MG TABLETS PO SCH (21:21)
[2020-09-08] MEDS ORDERED: methaDONE HCL 10 MG TABLET ONE (03:43)
[2020-09-08] MEDS ORDERED: methaDONE HCL 40 MG DISPERSABLE TABLET ONE (03:43)
[2020-09-08] MEDS: methaDONE 40 MG, methaDONE 30 MG PO SCH (06:06)
[2020-09-08] MEDS: PANTOPRAZOLE 20 MG TABLET PO SCH (09:52)
[2020-09-08] MEDS: PRENATAL VITAMINS W/ FOLIC ACID TABLET (FP) PO SCH (09:52)
[2020-09-08] MEDS: NICOTINE 14 MG/24 HOURS TOPICAL PATCH TD SCH (09:52)
[2020-09-08] MEDS: NICOTINE 7 MG/24 HOURS TOPICAL PATCH TD SCH (09:53)
[2020-09-08] MEDS: BICTEGRAV/EMTRICIT/TENOFOV (BIKTARVY) 50-200-25 MG TABLET PO SCH (09:53)
[2020-09-08] MEDS: BUDESONIDE/FORMETEROL FUMARATE 80/4.5 mcg INHALER IH SCH ×2 (10:06→21:46)
[2020-09-08] MEDS: TIOTROPIUM BROMIDE 2.5 MCG (SPIRIVA) RESPIMAT INHALER IH SCH (10:06)
[2020-09-08] MEDS: MELATONIN 5 MG TABLETS PO SCH (21:46)
[2020-09-08] MEDS: SULFAMETHOXAZOLE/TRIMETHOPRIM 800MG/160MG D.S. TABLET PO SCH (21:46)
[2020-09-08] MEDS: THIAMINE HCL 100 MG TABLET (FP) PO SCH (21:46)
[2020-09-08] MEDS: QUEtiapine FUMARATE 50 MG TABLET PO SCH (21:46)
[2020-09-09] MEDS ORDERED: methaDONE HCL 10 MG TABLET ONE (04:11)
[2020-09-09] MEDS ORDERED: methaDONE HCL 40 MG DISPERSABLE TABLET ONE (04:11)
[2020-09-09] MEDS: methaDONE 40 MG, methaDONE 30 MG PO SCH (06:02)
[2020-09-09] MEDS: BICTEGRAV/EMTRICIT/TENOFOV (BIKTARVY) 50-200-25 MG TABLET PO SCH (07:08)
[2020-09-09] MEDS: NICOTINE 14 MG/24 HOURS TOPICAL PATCH TD SCH (09:58)
[2020-09-09] MEDS: PANTOPRAZOLE 20 MG TABLET PO SCH (09:58)
[2020-09-09] MEDS: PRENATAL VITAMINS W/ FOLIC ACID TABLET (FP) PO SCH (09:58)
[2020-09-09] MEDS: NICOTINE 7 MG/24 HOURS TOPICAL PATCH TD SCH (09:58)
[2020-09-09] MEDS: BUDESONIDE/FORMETEROL FUMARATE 80/4.5 mcg INHALER IH SCH ×2 (09:59→21:12)
[2020-09-09] MEDS: TIOTROPIUM BROMIDE 2.5 MCG (SPIRIVA) RESPIMAT INHALER IH SCH (09:59)
[2020-09-09] MEDS ORDERED: COVID-19 VAC,AD26(JANSSEN)/PF 0.5 ML IM ONE (11:00)
[2020-09-09 13:55] LABS: ALBUMIN 2.9 g/dl (3.4-5.0); BLOOD UREA NITROGEN 18.4 mg/dL (7-18); CALCIUM 8.9 mg/dL (8.5-10.1)
[2020-09-09 13:59] LABS: CREATININE 1.2 mg/dL (0.55-1.3)
[2020-09-09 14:00] LABS: BILIRUBIN,TOTAL 0.3 mg/dL (0.2-1); TOT PROT 8.4 g/dl (6.4-8.2)
[2020-09-09] MEDS: QUEtiapine FUMARATE 50 MG TABLET PO SCH (21:12)
[2020-09-09] MEDS: MELATONIN 5 MG TABLETS PO SCH (21:12)
[2020-09-09] MEDS: SULFAMETHOXAZOLE/TRIMETHOPRIM 800MG/160MG D.S. TABLET PO SCH (21:12)
[2020-09-09] MEDS: THIAMINE HCL 100 MG TABLET (FP) PO SCH (21:12)
[2020-09-10] MEDS ORDERED: methaDONE HCL 40 MG DISPERSABLE TABLET ONE (05:25)
[2020-09-10] MEDS ORDERED: methaDONE HCL 10 MG TABLET ONE (05:26)
[2020-09-10] MEDS: methaDONE 40 MG, methaDONE 30 MG PO SCH (06:18)
[2020-09-10] MEDS: PRENATAL VITAMINS W/ FOLIC ACID TABLET (FP) PO SCH (10:07)
[2020-09-10] MEDS: NICOTINE 7 MG/24 HOURS TOPICAL PATCH TD SCH (10:07)
[2020-09-10] MEDS: BICTEGRAV/EMTRICIT/TENOFOV (BIKTARVY) 50-200-25 MG TABLET PO SCH (10:07)
[2020-09-10] MEDS: PANTOPRAZOLE 20 MG TABLET PO SCH (10:08)
[2020-09-10] MEDS: TIOTROPIUM BROMIDE 2.5 MCG (SPIRIVA) RESPIMAT INHALER IH SCH (10:08)
[2020-09-10] MEDS: BUDESONIDE/FORMETEROL FUMARATE 80/4.5 mcg INHALER IH SCH ×2 (10:08→21:36)
[2020-09-10] MEDS: NICOTINE 14 MG/24 HOURS TOPICAL PATCH TD SCH (10:08)
[2020-09-10] MEDS: QUEtiapine FUMARATE 50 MG TABLET PO SCH (21:36)
[2020-09-10] MEDS: MELATONIN 5 MG TABLETS PO SCH (21:36)
[2020-09-10] MEDS: SULFAMETHOXAZOLE/TRIMETHOPRIM 800MG/160MG D.S. TABLET PO SCH (21:36)
[2020-09-10] MEDS: THIAMINE HCL 100 MG TABLET (FP) PO SCH (21:36)
[2020-09-11] MEDS: BICTEGRAV/EMTRICIT/TENOFOV (BIKTARVY) 50-200-25 MG TABLET PO SCH (07:25)
[2020-09-11] MEDS ORDERED: methaDONE HCL 40 MG DISPERSABLE TABLET PO SCH (07:45)
[2020-09-11] MEDS ORDERED: methaDONE HCL 40 MG DISPERSABLE TABLET ONE (07:48)
[2020-09-11] MEDS ORDERED: methaDONE HCL 10 MG TABLET ONE (07:49)
[2020-09-11] MEDS: methaDONE 40 MG, methaDONE 30 MG PO SCH (07:50)
[2020-09-11] MEDS: PRENATAL VITAMINS W/ FOLIC ACID TABLET (FP) PO SCH (09:59)
[2020-09-11] MEDS: NICOTINE 14 MG/24 HOURS TOPICAL PATCH TD SCH (09:59)
[2020-09-11] MEDS: NICOTINE 7 MG/24 HOURS TOPICAL PATCH TD SCH (09:59)
[2020-09-11] MEDS: PANTOPRAZOLE 20 MG TABLET PO SCH (09:59)
[2020-09-11] MEDS: TIOTROPIUM BROMIDE 2.5 MCG (SPIRIVA) RESPIMAT INHALER IH SCH (10:00)
[2020-09-11] MEDS: BUDESONIDE/FORMETEROL FUMARATE 80/4.5 mcg INHALER IH SCH ×2 (10:00→21:34)
[2020-09-11] MEDS: SULFAMETHOXAZOLE/TRIMETHOPRIM 800MG/160MG D.S. TABLET PO SCH (21:33)
[2020-09-11] MEDS: THIAMINE HCL 100 MG TABLET (FP) PO SCH (21:33)
[2020-09-11] MEDS: QUEtiapine FUMARATE 50 MG TABLET PO SCH (21:33)
[2020-09-11] MEDS: MELATONIN 5 MG TABLETS PO SCH (21:33)
[2020-09-12] MEDS ORDERED: methaDONE HCL 10 MG TABLET ONE (03:09)
[2020-09-12] MEDS ORDERED: methaDONE HCL 40 MG DISPERSABLE TABLET ONE (03:09)
[2020-09-12] MEDS: methaDONE 40 MG, methaDONE 30 MG PO SCH (06:36)
[2020-09-12] MEDS: BICTEGRAV/EMTRICIT/TENOFOV (BIKTARVY) 50-200-25 MG TABLET PO SCH (08:49)
[2020-09-12] MEDS: PRENATAL VITAMINS W/ FOLIC ACID TABLET (FP) PO SCH (09:47)
[2020-09-12] MEDS: NICOTINE 14 MG/24 HOURS TOPICAL PATCH TD SCH (09:48)
[2020-09-12] MEDS: PANTOPRAZOLE 20 MG TABLET PO SCH (09:48)
[2020-09-12] MEDS: BUDESONIDE/FORMETEROL FUMARATE 80/4.5 mcg INHALER IH SCH ×2 (09:57→21:25)
[2020-09-12] MEDS: TIOTROPIUM BROMIDE 2.5 MCG (SPIRIVA) RESPIMAT INHALER IH SCH (09:57)
[2020-09-12] MEDS: NICOTINE 7 MG/24 HOURS TOPICAL PATCH TD SCH (09:57)
[2020-09-12] MEDS: SULFAMETHOXAZOLE/TRIMETHOPRIM 800MG/160MG D.S. TABLET PO SCH (21:24)
[2020-09-12] MEDS: QUEtiapine FUMARATE 50 MG TABLET PO SCH (21:24)
[2020-09-12] MEDS: THIAMINE HCL 100 MG TABLET (FP) PO SCH (21:24)
[2020-09-12] MEDS: MELATONIN 5 MG TABLETS PO SCH (21:24)
[2020-09-13] MEDS ORDERED: methaDONE HCL 40 MG DISPERSABLE TABLET ONE (03:08)
[2020-09-13] MEDS ORDERED: methaDONE HCL 10 MG TABLET ONE (03:09)
[2020-09-13] MEDS: methaDONE 40 MG, methaDONE 30 MG PO SCH (06:15)
[2020-09-13] MEDS: BICTEGRAV/EMTRICIT/TENOFOV (BIKTARVY) 50-200-25 MG TABLET PO SCH (08:26)
[2020-09-13] MEDS: TIOTROPIUM BROMIDE 2.5 MCG (SPIRIVA) RESPIMAT INHALER IH SCH (09:53)
[2020-09-13] MEDS: NICOTINE 7 MG/24 HOURS TOPICAL PATCH TD SCH (09:53)
[2020-09-13] MEDS: BUDESONIDE/FORMETEROL FUMARATE 80/4.5 mcg INHALER IH SCH ×2 (09:53→21:30)
[2020-09-13] MEDS: PRENATAL VITAMINS W/ FOLIC ACID TABLET (FP) PO SCH (09:53)
[2020-09-13] MEDS: PANTOPRAZOLE 20 MG TABLET PO SCH (09:53)
[2020-09-13] MEDS: NICOTINE 14 MG/24 HOURS TOPICAL PATCH TD SCH (09:53)
[2020-09-13] MEDS: MELATONIN 5 MG TABLETS PO SCH (21:29)
[2020-09-13] MEDS: THIAMINE HCL 100 MG TABLET (FP) PO SCH (21:29)
[2020-09-13] MEDS: QUEtiapine FUMARATE 50 MG TABLET PO SCH (21:29)
[2020-09-13] MEDS: SULFAMETHOXAZOLE/TRIMETHOPRIM 800MG/160MG D.S. TABLET PO SCH (21:29)
[2020-09-14] MEDS ORDERED: methaDONE HCL 10 MG TABLET ONE (03:26)
[2020-09-14] MEDS ORDERED: methaDONE HCL 40 MG DISPERSABLE TABLET ONE (03:26)
[2020-09-14] MEDS: methaDONE 40 MG, methaDONE 30 MG PO SCH (06:09)
[2020-09-14] MEDS: BICTEGRAV/EMTRICIT/TENOFOV (BIKTARVY) 50-200-25 MG TABLET PO SCH (08:11)
[2020-09-14] MEDS: PANTOPRAZOLE 20 MG TABLET PO SCH (10:10)
[2020-09-14] MEDS: PRENATAL VITAMINS W/ FOLIC ACID TABLET (FP) PO SCH (10:10)
[2020-09-14] MEDS: NICOTINE 14 MG/24 HOURS TOPICAL PATCH TD SCH (10:10)
[2020-09-14] MEDS: BUDESONIDE/FORMETEROL FUMARATE 80/4.5 mcg INHALER IH SCH ×2 (10:11→21:35)
[2020-09-14] MEDS: NICOTINE 7 MG/24 HOURS TOPICAL PATCH TD SCH (10:11)
[2020-09-14] MEDS: TIOTROPIUM BROMIDE 2.5 MCG (SPIRIVA) RESPIMAT INHALER IH SCH (10:11)
[2020-09-14] MEDS: QUEtiapine FUMARATE 50 MG TABLET PO SCH (21:34)
[2020-09-14] MEDS: SULFAMETHOXAZOLE/TRIMETHOPRIM 800MG/160MG D.S. TABLET PO SCH (21:34)
[2020-09-14] MEDS: THIAMINE HCL 100 MG TABLET (FP) PO SCH (21:34)
[2020-09-14] MEDS: MELATONIN 5 MG TABLETS PO SCH (21:34)
[2020-09-15] MEDS ORDERED: methaDONE HCL 40 MG DISPERSABLE TABLET ONE (03:00)
[2020-09-15] MEDS ORDERED: methaDONE HCL 10 MG TABLET ONE (03:01)
[2020-09-15] MEDS: methaDONE 40 MG, methaDONE 30 MG PO SCH (06:30)
[2020-09-15] MEDS: BICTEGRAV/EMTRICIT/TENOFOV (BIKTARVY) 50-200-25 MG TABLET PO SCH (07:01)
[2020-09-15] MEDS ORDERED: PT OWN MED DRAWER 7, Y5N ONE (08:58)
[2020-09-15] MEDS: PRENATAL VITAMINS W/ FOLIC ACID TABLET (FP) PO SCH (09:49)
[2020-09-15] MEDS: PANTOPRAZOLE 20 MG TABLET PO SCH (09:49)
[2020-09-15] MEDS: NICOTINE 14 MG/24 HOURS TOPICAL PATCH TD SCH (09:50)
[2020-09-15] MEDS: NICOTINE 7 MG/24 HOURS TOPICAL PATCH TD SCH (09:51)
[2020-09-15] MEDS: BUDESONIDE/FORMETEROL FUMARATE 80/4.5 mcg INHALER IH SCH ×2 (09:51→21:20)
[2020-09-15] MEDS: TIOTROPIUM BROMIDE 2.5 MCG (SPIRIVA) RESPIMAT INHALER IH SCH (09:51)
[2020-09-15] MEDS: MELATONIN 5 MG TABLETS PO SCH (21:20)
[2020-09-15] MEDS: SULFAMETHOXAZOLE/TRIMETHOPRIM 800MG/160MG D.S. TABLET PO SCH (21:20)
[2020-09-15] MEDS: QUEtiapine FUMARATE 50 MG TABLET PO SCH (21:20)
[2020-09-15] MEDS: THIAMINE HCL 100 MG TABLET (FP) PO SCH (21:20)
[2020-09-16] MEDS ORDERED: methaDONE HCL 40 MG DISPERSABLE TABLET ONE (03:20)
[2020-09-16] MEDS ORDERED: methaDONE HCL 10 MG TABLET ONE (03:20)
[2020-09-16] MEDS: methaDONE 40 MG, methaDONE 30 MG PO SCH (06:19)
[2020-09-16] MEDS: BICTEGRAV/EMTRICIT/TENOFOV (BIKTARVY) 50-200-25 MG TABLET PO SCH (07:02)
[2020-09-16 07:24] VITALS: BP 136/75; PULSE 66; TEMP 98.2
[2020-09-16] MEDS: BUDESONIDE/FORMETEROL FUMARATE 80/4.5 mcg INHALER IH SCH (09:02)
[2020-09-16] MEDS: NICOTINE 7 MG/24 HOURS TOPICAL PATCH TD SCH (09:02)
[2020-09-16] MEDS: NICOTINE 14 MG/24 HOURS TOPICAL PATCH TD SCH (09:02)
[2020-09-16] MEDS: TIOTROPIUM BROMIDE 2.5 MCG (SPIRIVA) RESPIMAT INHALER IH SCH (09:02)
[2020-09-16] MEDS: PANTOPRAZOLE 20 MG TABLET PO SCH (09:02)
[2020-09-16] MEDS: PRENATAL VITAMINS W/ FOLIC ACID TABLET (FP) PO SCH (09:02)
[2020-09-16] MEDS ORDERED: PT OWN MED DRAWER 7, Y5N ONE (09:05)
== END 2020-09-16 09:25 | disposition home or self-care (01) | DRG 772 ==
LOC: YASAS 15:56 → Y3W 23:42
PROVIDERS: ADMIT Allergy & Immunology; ATTEND Allergy & Immunology
PROC: HZ42ZZZ Group Counseling for Substance Abuse Treatment, Cognitive-Behavioral (ICD-10-PCS; principal; 2020-09-02)
DX: F11.20 Opioid dependence, uncomplicated (principal); F14.20 Cocaine dependence, uncomplicated; F10.20 Alcohol dependence, uncomplicated; F17.210 Nicotine dependence, cigarettes, uncomplicated; F19.282 Other psychoactive substance dependence with psychoactive substance-induced sleep disorder; F19.24 Other psychoactive substance dependence with psychoactive substance-induced mood disorder; F32.9 Major depressive disorder, single episode, unspecified; Z21 Asymptomatic human immunodeficiency virus [HIV] infection status; J45.909 Unspecified asthma, uncomplicated; K21.9 Gastro-esophageal reflux disease without esophagitis
CPT/HCPCS: 0031A; 80053; 81003; 86780; 91303; 93005; 93010; C9803; U0003; U0005

== ENCOUNTER 2021-01-02 20:33 | Inpatient (IN) | payer OTHER ==
[2021-01-02 23:24] VITALS: BMI 22.1
[2021-01-03] MEDS ORDERED: MAG HYDROX/AL HYDROX/SIMETH 30 ML UNIT-DOSE CUP PO PRN (05:05)
[2021-01-03] MEDS ORDERED: hydrOXYzine PAMOATE 25 MG CAPSULE (FP) PO PRN (05:05)
[2021-01-03] MEDS ORDERED: P-EPHED 60MG/TRIPROLIDI 2.5MG TABLET PO PRN (05:05)
[2021-01-03] MEDS ORDERED: IBUPROFEN 400 MG TABLET (FP) PO PRN (05:05)
[2021-01-03] MEDS ORDERED: LOPERAMIDE HCL 2 MG CAPSULE PO PRN (05:05)
[2021-01-03] MEDS ORDERED: MAGNESIUM CITRATE 300 ML BOTTLE PO PRN (05:05)
[2021-01-03] MEDS ORDERED: ACETAMINOPHEN 325 MG TABLET (FP) PO PRN (05:05)
[2021-01-03] MEDS ORDERED: guaiFENesin 200 MG/10 ML 10 ML UNIT-DOSE CUPS PO PRN (05:05)
[2021-01-03] MEDS ORDERED: ALBUTEROL SO4 HFA INHALER IH PRN (05:10)
[2021-01-03] MEDS ORDERED: methaDONE HCL 10 MG TABLET PO SCH (06:15)
[2021-01-03] MEDS ORDERED: methaDONE HCL 40 MG DISPERSABLE TABLET ONE (09:15)
[2021-01-03] MEDS ORDERED: methaDONE HCL 10 MG TABLET ONE (09:16)
[2021-01-03] MEDS: PRENATAL VITAMINS W/ FOLIC ACID TABLET (FP) PO SCH (09:55)
[2021-01-03] MEDS: PANTOPRAZOLE 40 MG TABLET PO SCH (09:55)
[2021-01-03] MEDS: methaDONE 80 MG, methaDONE 10 MG PO SCH (09:55)
[2021-01-03] MEDS: HYDROCHLOROTHIAZIDE 12.5 MG CAPSULE (FP) PO SCH (09:55)
[2021-01-03] MEDS: BICTEGRAV/EMTRICIT/TENOFOV (BIKTARVY) 50-200-25 MG TABLET PO SCH (09:55)
[2021-01-03] MEDS: TIOTROPIUM BROMIDE 2.5 MCG (SPIRIVA) RESPIMAT INHALER IH SCH (09:56)
[2021-01-03] MEDS: BUDESONIDE/FORMETEROL FUMARATE 80/4.5 mcg INHALER IH SCH ×2 (09:57→21:06)
[2021-01-03 10:16] LABS: HEMATOCRIT 33.4 % (35.4-49); HEMOGLOBIN 11.4 GM/dL (11.7-16.9); MCH 29.1 pg (25.7-33.7); MCHC 34.2 g/dl (32.0-35.9); MEAN PLT VOLUME 7.4 fl (7.5-11.1); PLATELET COUNT 137 10^3/uL (134-434); RBC 3.93 M/mm3 (4.00-5.60); RDW 13.4 % (11.9-15.9); WHITE BLOOD COUNT 2.3 K/mm3 (4.0-10.0)
[2021-01-03 10:33] LABS: ALBUMIN 2.2 g/dl (3.4-5.0)
[2021-01-03 10:34] LABS: CALCIUM 8.1 mg/dL (8.5-10.1)
[2021-01-03 10:35] LABS: BILIRUBIN,TOTAL 0.5 mg/dL (0.2-1); TOT PROT 7.5 g/dl (6.4-8.2)
[2021-01-03 10:37] LABS: CREATININE 1.2 mg/dL (0.55-1.3)
[2021-01-03] MEDS: NICOTINE 7 MG/24 HOURS TOPICAL PATCH TD SCH (11:55)
[2021-01-03] MEDS ORDERED: PNEUMOC 13-VAL CONJ-DIP CRM/PF 0.5 ML DISP.SYRIN IM ONE (12:00)
[2021-01-03] MEDS ORDERED: FLU VACC QS2021-22(6MOS UP)/PF 60 MCG/0.5 ML SYRINGE IM ONE (12:00)
[2021-01-03] MEDS: THIAMINE HCL 100 MG TABLET (FP) PO SCH (21:05)
[2021-01-03] MEDS: QUEtiapine FUMARATE 25 MG TABLET PO SCH (21:05)
[2021-01-03] MEDS: MELATONIN 5 MG TABLETS PO PRN (21:05)
[2021-01-04] MEDS ORDERED: methaDONE HCL 10 MG TABLET ONE (03:12)
[2021-01-04] MEDS ORDERED: methaDONE HCL 40 MG DISPERSABLE TABLET ONE (03:12)
[2021-01-04] MEDS: methaDONE 80 MG, methaDONE 10 MG PO SCH (06:13)
[2021-01-04 06:14] LABS: URINE APPEARANCE CLEAR; URINE BILIRUBIN NEGATIVE (NEGATIVE); URINE COLOR YELLOW; URINE GLUCOSE (UA) NEGATIVE (NEGATIVE); URINE KETONE NEGATIVE (NEGATIVE); URINE LEUK ESTERASE NEGATIVE (NEGATIVE); URINE NITRITE NEGATIVE (NEGATIVE); URINE PROTEIN NEGATIVE (NEGATIVE)
[2021-01-04] MEDS ORDERED: PT OWN MED DRAWER 7, Y5N ONE (10:01)
[2021-01-04] MEDS: PRENATAL VITAMINS W/ FOLIC ACID TABLET (FP) PO SCH (10:21)
[2021-01-04] MEDS: TIOTROPIUM BROMIDE 2.5 MCG (SPIRIVA) RESPIMAT INHALER IH SCH (10:21)
[2021-01-04] MEDS: NICOTINE 7 MG/24 HOURS TOPICAL PATCH TD SCH (10:21)
[2021-01-04] MEDS: BICTEGRAV/EMTRICIT/TENOFOV (BIKTARVY) 50-200-25 MG TABLET PO SCH (10:21)
[2021-01-04] MEDS: PANTOPRAZOLE 40 MG TABLET PO SCH (10:21)
[2021-01-04] MEDS: BUDESONIDE/FORMETEROL FUMARATE 80/4.5 mcg INHALER IH SCH ×2 (10:21→21:44)
[2021-01-04] MEDS: HYDROCHLOROTHIAZIDE 12.5 MG CAPSULE (FP) PO SCH (10:21)
[2021-01-04] MEDS: THIAMINE HCL 100 MG TABLET (FP) PO SCH (21:43)
[2021-01-04] MEDS: MELATONIN 5 MG TABLETS PO PRN (21:43)
[2021-01-04] MEDS: QUEtiapine FUMARATE 25 MG TABLET PO SCH (21:44)
[2021-01-04] MEDS: MAGNESIUM HYDROX 2400MG/30ML ORAL SUSPENSION 30 ML CUP PO PRN (21:44)
[2021-01-05] MEDS ORDERED: methaDONE HCL 10 MG TABLET ONE (03:01)
[2021-01-05] MEDS ORDERED: methaDONE HCL 40 MG DISPERSABLE TABLET ONE (03:01)
[2021-01-05] MEDS: methaDONE 80 MG, methaDONE 10 MG PO SCH (06:39)
[2021-01-05] MEDS: PANTOPRAZOLE 40 MG TABLET PO SCH (09:48)
[2021-01-05] MEDS: TIOTROPIUM BROMIDE 2.5 MCG (SPIRIVA) RESPIMAT INHALER IH SCH (09:48)
[2021-01-05] MEDS: HYDROCHLOROTHIAZIDE 12.5 MG CAPSULE (FP) PO SCH (09:48)
[2021-01-05] MEDS: PRENATAL VITAMINS W/ FOLIC ACID TABLET (FP) PO SCH (09:48)
[2021-01-05] MEDS: BICTEGRAV/EMTRICIT/TENOFOV (BIKTARVY) 50-200-25 MG TABLET PO SCH (09:48)
[2021-01-05] MEDS: NICOTINE 7 MG/24 HOURS TOPICAL PATCH TD SCH (09:48)
[2021-01-05] MEDS: BUDESONIDE/FORMETEROL FUMARATE 80/4.5 mcg INHALER IH SCH ×2 (09:48→21:00)
[2021-01-05] MEDS: COLLOIDAL OATMEAL 1 BAR EACH TP PRN (11:20)
[2021-01-05] MEDS: QUEtiapine FUMARATE 25 MG TABLET PO SCH (21:00)
[2021-01-05] MEDS: MELATONIN 5 MG TABLETS PO PRN (21:00)
[2021-01-05] MEDS: THIAMINE HCL 100 MG TABLET (FP) PO SCH (21:00)
[2021-01-06] MEDS ORDERED: methaDONE HCL 40 MG DISPERSABLE TABLET ONE (03:19)
[2021-01-06] MEDS ORDERED: methaDONE HCL 10 MG TABLET ONE (03:19)
[2021-01-06] MEDS: methaDONE 80 MG, methaDONE 10 MG PO SCH (06:32)
[2021-01-06] MEDS: PRENATAL VITAMINS W/ FOLIC ACID TABLET (FP) PO SCH (10:17)
[2021-01-06] MEDS: NICOTINE 7 MG/24 HOURS TOPICAL PATCH TD SCH (10:17)
[2021-01-06] MEDS: BICTEGRAV/EMTRICIT/TENOFOV (BIKTARVY) 50-200-25 MG TABLET PO SCH (10:17)
[2021-01-06] MEDS: TIOTROPIUM BROMIDE 2.5 MCG (SPIRIVA) RESPIMAT INHALER IH SCH (10:17)
[2021-01-06] MEDS: BUDESONIDE/FORMETEROL FUMARATE 80/4.5 mcg INHALER IH SCH ×2 (10:17→22:03)
[2021-01-06] MEDS: PANTOPRAZOLE 40 MG TABLET PO SCH (10:17)
[2021-01-06] MEDS: HYDROCHLOROTHIAZIDE 12.5 MG CAPSULE (FP) PO SCH (10:17)
[2021-01-06] MEDS: THIAMINE HCL 100 MG TABLET (FP) PO SCH (22:02)
[2021-01-06] MEDS: QUEtiapine FUMARATE 25 MG TABLET PO SCH (22:02)
[2021-01-07] MEDS ORDERED: methaDONE HCL 10 MG TABLET ONE (03:05)
[2021-01-07] MEDS ORDERED: methaDONE HCL 40 MG DISPERSABLE TABLET ONE (03:05)
[2021-01-07] MEDS: methaDONE 80 MG, methaDONE 10 MG PO SCH (06:52)
[2021-01-07] MEDS: PANTOPRAZOLE 40 MG TABLET PO SCH (10:14)
[2021-01-07] MEDS: HYDROCHLOROTHIAZIDE 12.5 MG CAPSULE (FP) PO SCH (10:14)
[2021-01-07] MEDS: PRENATAL VITAMINS W/ FOLIC ACID TABLET (FP) PO SCH (10:14)
[2021-01-07] MEDS: NICOTINE 7 MG/24 HOURS TOPICAL PATCH TD SCH (10:15)
[2021-01-07] MEDS: TIOTROPIUM BROMIDE 2.5 MCG (SPIRIVA) RESPIMAT INHALER IH SCH (10:15)
[2021-01-07] MEDS: BICTEGRAV/EMTRICIT/TENOFOV (BIKTARVY) 50-200-25 MG TABLET PO SCH (10:15)
[2021-01-07] MEDS: BUDESONIDE/FORMETEROL FUMARATE 80/4.5 mcg INHALER IH SCH ×2 (10:15→21:01)
[2021-01-07] MEDS: MELATONIN 5 MG TABLETS PO PRN (21:01)
[2021-01-07] MEDS: QUEtiapine FUMARATE 25 MG TABLET PO SCH (21:01)
[2021-01-07] MEDS: THIAMINE HCL 100 MG TABLET (FP) PO SCH (21:01)
[2021-01-08] MEDS ORDERED: methaDONE HCL 40 MG DISPERSABLE TABLET ONE (03:06)
[2021-01-08] MEDS ORDERED: methaDONE HCL 10 MG TABLET ONE (03:07)
[2021-01-08] MEDS: methaDONE 80 MG, methaDONE 10 MG PO SCH (06:29)
[2021-01-08] MEDS: MAGNESIUM HYDROX 2400MG/30ML ORAL SUSPENSION 30 ML CUP PO PRN (06:32)
[2021-01-08] MEDS: HYDROCHLOROTHIAZIDE 12.5 MG CAPSULE (FP) PO SCH (10:04)
[2021-01-08] MEDS: PANTOPRAZOLE 40 MG TABLET PO SCH (10:04)
[2021-01-08] MEDS: BICTEGRAV/EMTRICIT/TENOFOV (BIKTARVY) 50-200-25 MG TABLET PO SCH (10:04)
[2021-01-08] MEDS: TIOTROPIUM BROMIDE 2.5 MCG (SPIRIVA) RESPIMAT INHALER IH SCH (10:04)
[2021-01-08] MEDS: PRENATAL VITAMINS W/ FOLIC ACID TABLET (FP) PO SCH (10:04)
[2021-01-08] MEDS: NICOTINE 7 MG/24 HOURS TOPICAL PATCH TD SCH (10:04)
[2021-01-08] MEDS: BUDESONIDE/FORMETEROL FUMARATE 80/4.5 mcg INHALER IH SCH ×2 (10:04→21:40)
[2021-01-08] MEDS: QUEtiapine FUMARATE 25 MG TABLET PO SCH (21:39)
[2021-01-08] MEDS: THIAMINE HCL 100 MG TABLET (FP) PO SCH (21:39)
[2021-01-09] MEDS ORDERED: methaDONE HCL 10 MG TABLET ONE (03:01)
[2021-01-09] MEDS ORDERED: methaDONE HCL 40 MG DISPERSABLE TABLET ONE (03:01)
[2021-01-09] MEDS: methaDONE 80 MG, methaDONE 10 MG PO SCH (06:50)
[2021-01-09] MEDS: BICTEGRAV/EMTRICIT/TENOFOV (BIKTARVY) 50-200-25 MG TABLET PO SCH (09:55)
[2021-01-09] MEDS: PRENATAL VITAMINS W/ FOLIC ACID TABLET (FP) PO SCH (09:55)
[2021-01-09] MEDS: TIOTROPIUM BROMIDE 2.5 MCG (SPIRIVA) RESPIMAT INHALER IH SCH (09:56)
[2021-01-09] MEDS: HYDROCHLOROTHIAZIDE 12.5 MG CAPSULE (FP) PO SCH (09:56)
[2021-01-09] MEDS: BUDESONIDE/FORMETEROL FUMARATE 80/4.5 mcg INHALER IH SCH ×2 (09:56→21:49)
[2021-01-09] MEDS: NICOTINE 7 MG/24 HOURS TOPICAL PATCH TD SCH (09:56)
[2021-01-09] MEDS: PANTOPRAZOLE 40 MG TABLET PO SCH (09:56)
[2021-01-09] MEDS: TOLNAFTATE 1% CREAM 15 GM TUBE TP SCH ×2 (14:06→21:49)
[2021-01-09] MEDS: COLLOIDAL OATMEAL 1 BAR EACH TP PRN (15:44)
[2021-01-09] MEDS: THIAMINE HCL 100 MG TABLET (FP) PO SCH (21:49)
[2021-01-09] MEDS: QUEtiapine FUMARATE 25 MG TABLET PO SCH (21:49)
[2021-01-10] MEDS ORDERED: methaDONE HCL 10 MG TABLET ONE (03:18)
[2021-01-10] MEDS ORDERED: methaDONE HCL 40 MG DISPERSABLE TABLET ONE (03:18)
[2021-01-10] MEDS: methaDONE 80 MG, methaDONE 10 MG PO SCH (06:35)
[2021-01-10] MEDS: PANTOPRAZOLE 40 MG TABLET PO SCH (10:18)
[2021-01-10] MEDS: PRENATAL VITAMINS W/ FOLIC ACID TABLET (FP) PO SCH (10:18)
[2021-01-10] MEDS: TIOTROPIUM BROMIDE 2.5 MCG (SPIRIVA) RESPIMAT INHALER IH SCH (10:19)
[2021-01-10] MEDS: BICTEGRAV/EMTRICIT/TENOFOV (BIKTARVY) 50-200-25 MG TABLET PO SCH (10:19)
[2021-01-10] MEDS: HYDROCHLOROTHIAZIDE 12.5 MG CAPSULE (FP) PO SCH (10:19)
[2021-01-10] MEDS: BUDESONIDE/FORMETEROL FUMARATE 80/4.5 mcg INHALER IH SCH ×2 (10:19→21:33)
[2021-01-10] MEDS: NICOTINE 7 MG/24 HOURS TOPICAL PATCH TD SCH (10:19)
[2021-01-10] MEDS: TOLNAFTATE 1% CREAM 15 GM TUBE TP SCH ×2 (10:19→21:33)
[2021-01-10] MEDS: THIAMINE HCL 100 MG TABLET (FP) PO SCH (21:32)
[2021-01-10] MEDS: QUEtiapine FUMARATE 25 MG TABLET PO SCH (21:32)
[2021-01-10] MEDS: MELATONIN 5 MG TABLETS PO PRN (21:33)
[2021-01-11] MEDS ORDERED: methaDONE HCL 40 MG DISPERSABLE TABLET ONE (03:00)
[2021-01-11] MEDS ORDERED: methaDONE HCL 10 MG TABLET ONE (03:01)
[2021-01-11] MEDS: NICOTINE POLACRILEX 2 MG GUM BUC PRN ×4 (06:05→21:00)
[2021-01-11] MEDS: methaDONE 80 MG, methaDONE 10 MG PO SCH (06:05)
[2021-01-11] MEDS: NICOTINE 7 MG/24 HOURS TOPICAL PATCH TD SCH (09:58)
[2021-01-11] MEDS: TIOTROPIUM BROMIDE 2.5 MCG (SPIRIVA) RESPIMAT INHALER IH SCH (09:58)
[2021-01-11] MEDS: BUDESONIDE/FORMETEROL FUMARATE 80/4.5 mcg INHALER IH SCH ×2 (09:58→21:01)
[2021-01-11] MEDS: PANTOPRAZOLE 40 MG TABLET PO SCH (09:58)
[2021-01-11] MEDS: PRENATAL VITAMINS W/ FOLIC ACID TABLET (FP) PO SCH (09:58)
[2021-01-11] MEDS: BICTEGRAV/EMTRICIT/TENOFOV (BIKTARVY) 50-200-25 MG TABLET PO SCH (09:58)
[2021-01-11] MEDS: HYDROCHLOROTHIAZIDE 12.5 MG CAPSULE (FP) PO SCH (09:58)
[2021-01-11] MEDS: TOLNAFTATE 1% CREAM 15 GM TUBE TP SCH ×2 (09:59→21:01)
[2021-01-11] MEDS: THIAMINE HCL 100 MG TABLET (FP) PO SCH (21:00)
[2021-01-11] MEDS: QUEtiapine FUMARATE 25 MG TABLET PO SCH (21:00)
[2021-01-12] MEDS ORDERED: methaDONE HCL 40 MG DISPERSABLE TABLET ONE (03:10)
[2021-01-12] MEDS ORDERED: methaDONE HCL 10 MG TABLET ONE (03:10)
[2021-01-12] MEDS: methaDONE 80 MG, methaDONE 10 MG PO SCH (06:41)
[2021-01-12] MEDS: NICOTINE POLACRILEX 2 MG GUM BUC PRN ×3 (06:41→16:30)
[2021-01-12] MEDS: PANTOPRAZOLE 40 MG TABLET PO SCH (10:21)
[2021-01-12] MEDS: BUDESONIDE/FORMETEROL FUMARATE 80/4.5 mcg INHALER IH SCH ×2 (10:21→21:35)
[2021-01-12] MEDS: PRENATAL VITAMINS W/ FOLIC ACID TABLET (FP) PO SCH (10:21)
[2021-01-12] MEDS: NICOTINE 7 MG/24 HOURS TOPICAL PATCH TD SCH (10:21)
[2021-01-12] MEDS: TIOTROPIUM BROMIDE 2.5 MCG (SPIRIVA) RESPIMAT INHALER IH SCH (10:21)
[2021-01-12] MEDS: TOLNAFTATE 1% CREAM 15 GM TUBE TP SCH ×2 (10:21→21:35)
[2021-01-12] MEDS: HYDROCHLOROTHIAZIDE 12.5 MG CAPSULE (FP) PO SCH (10:21)
[2021-01-12] MEDS: BICTEGRAV/EMTRICIT/TENOFOV (BIKTARVY) 50-200-25 MG TABLET PO SCH (10:23)
[2021-01-12] MEDS: THIAMINE HCL 100 MG TABLET (FP) PO SCH (21:34)
[2021-01-12] MEDS: QUEtiapine FUMARATE 25 MG TABLET PO SCH (21:34)
[2021-01-13] MEDS ORDERED: methaDONE HCL 40 MG DISPERSABLE TABLET ONE (03:25)
[2021-01-13] MEDS ORDERED: methaDONE HCL 10 MG TABLET ONE (03:25)
[2021-01-13] MEDS: methaDONE 80 MG, methaDONE 10 MG PO SCH (06:35)
[2021-01-13] MEDS: NICOTINE POLACRILEX 2 MG GUM BUC PRN ×4 (06:36→19:18)
[2021-01-13] MEDS: NICOTINE 7 MG/24 HOURS TOPICAL PATCH TD SCH (10:20)
[2021-01-13] MEDS: HYDROCHLOROTHIAZIDE 12.5 MG CAPSULE (FP) PO SCH (10:20)
[2021-01-13] MEDS: PANTOPRAZOLE 40 MG TABLET PO SCH (10:20)
[2021-01-13] MEDS: BICTEGRAV/EMTRICIT/TENOFOV (BIKTARVY) 50-200-25 MG TABLET PO SCH (10:20)
[2021-01-13] MEDS: PRENATAL VITAMINS W/ FOLIC ACID TABLET (FP) PO SCH (10:20)
[2021-01-13] MEDS: TIOTROPIUM BROMIDE 2.5 MCG (SPIRIVA) RESPIMAT INHALER IH SCH (10:21)
[2021-01-13] MEDS: TOLNAFTATE 1% CREAM 15 GM TUBE TP SCH ×2 (10:21→21:02)
[2021-01-13] MEDS: BUDESONIDE/FORMETEROL FUMARATE 80/4.5 mcg INHALER IH SCH ×2 (10:21→21:02)
[2021-01-13] MEDS: THIAMINE HCL 100 MG TABLET (FP) PO SCH (21:01)
[2021-01-13] MEDS: QUEtiapine FUMARATE 25 MG TABLET PO SCH (21:01)
[2021-01-14] MEDS ORDERED: methaDONE HCL 40 MG DISPERSABLE TABLET ONE (03:12)
[2021-01-14] MEDS ORDERED: methaDONE HCL 10 MG TABLET ONE (03:12)
[2021-01-14] MEDS: methaDONE 80 MG, methaDONE 10 MG PO SCH (06:50)
[2021-01-14] MEDS: NICOTINE POLACRILEX 2 MG GUM BUC PRN ×5 (06:50→21:27)
[2021-01-14] MEDS: PANTOPRAZOLE 40 MG TABLET PO SCH (10:04)
[2021-01-14] MEDS: BICTEGRAV/EMTRICIT/TENOFOV (BIKTARVY) 50-200-25 MG TABLET PO SCH (10:04)
[2021-01-14] MEDS: PRENATAL VITAMINS W/ FOLIC ACID TABLET (FP) PO SCH (10:04)
[2021-01-14] MEDS: HYDROCHLOROTHIAZIDE 12.5 MG CAPSULE (FP) PO SCH (10:04)
[2021-01-14] MEDS: NICOTINE 7 MG/24 HOURS TOPICAL PATCH TD SCH (10:04)
[2021-01-14] MEDS: BUDESONIDE/FORMETEROL FUMARATE 80/4.5 mcg INHALER IH SCH ×2 (10:04→21:28)
[2021-01-14] MEDS: TOLNAFTATE 1% CREAM 15 GM TUBE TP SCH ×2 (10:05→21:28)
[2021-01-14] MEDS: TIOTROPIUM BROMIDE 2.5 MCG (SPIRIVA) RESPIMAT INHALER IH SCH (10:50)
[2021-01-14] MEDS: THIAMINE HCL 100 MG TABLET (FP) PO SCH (21:27)
[2021-01-14] MEDS: QUEtiapine FUMARATE 25 MG TABLET PO SCH (21:27)
[2021-01-15] MEDS ORDERED: methaDONE HCL 10 MG TABLET ONE (03:14)
[2021-01-15] MEDS ORDERED: methaDONE HCL 40 MG DISPERSABLE TABLET ONE (03:14)
[2021-01-15] MEDS: NICOTINE POLACRILEX 2 MG GUM BUC PRN ×5 (06:14→20:59)
[2021-01-15] MEDS: methaDONE 80 MG, methaDONE 10 MG PO SCH (06:14)
[2021-01-15] MEDS: NICOTINE 7 MG/24 HOURS TOPICAL PATCH TD SCH (10:18)
[2021-01-15] MEDS: BUDESONIDE/FORMETEROL FUMARATE 80/4.5 mcg INHALER IH SCH ×2 (10:18→21:00)
[2021-01-15] MEDS: PANTOPRAZOLE 40 MG TABLET PO SCH (10:19)
[2021-01-15] MEDS: TIOTROPIUM BROMIDE 2.5 MCG (SPIRIVA) RESPIMAT INHALER IH SCH (10:19)
[2021-01-15] MEDS: BICTEGRAV/EMTRICIT/TENOFOV (BIKTARVY) 50-200-25 MG TABLET PO SCH (10:19)
[2021-01-15] MEDS: HYDROCHLOROTHIAZIDE 12.5 MG CAPSULE (FP) PO SCH (10:19)
[2021-01-15] MEDS: PRENATAL VITAMINS W/ FOLIC ACID TABLET (FP) PO SCH (10:19)
[2021-01-15] MEDS: TOLNAFTATE 1% CREAM 15 GM TUBE TP SCH ×2 (10:20→21:00)
[2021-01-15] MEDS: QUEtiapine FUMARATE 25 MG TABLET PO SCH (21:00)
[2021-01-15] MEDS: THIAMINE HCL 100 MG TABLET (FP) PO SCH (21:00)
[2021-01-16] MEDS ORDERED: methaDONE HCL 10 MG TABLET ONE (03:15)
[2021-01-16] MEDS ORDERED: methaDONE HCL 40 MG DISPERSABLE TABLET ONE (03:15)
[2021-01-16] MEDS: NICOTINE POLACRILEX 2 MG GUM BUC PRN ×4 (06:38→20:21)
[2021-01-16] MEDS: methaDONE 80 MG, methaDONE 10 MG PO SCH (06:38)
[2021-01-16] MEDS: BICTEGRAV/EMTRICIT/TENOFOV (BIKTARVY) 50-200-25 MG TABLET PO SCH (10:09)
[2021-01-16] MEDS: PRENATAL VITAMINS W/ FOLIC ACID TABLET (FP) PO SCH (10:09)
[2021-01-16] MEDS: NICOTINE 7 MG/24 HOURS TOPICAL PATCH TD SCH (10:09)
[2021-01-16] MEDS: PANTOPRAZOLE 40 MG TABLET PO SCH (10:09)
[2021-01-16] MEDS: HYDROCHLOROTHIAZIDE 12.5 MG CAPSULE (FP) PO SCH (10:09)
[2021-01-16] MEDS: TIOTROPIUM BROMIDE 2.5 MCG (SPIRIVA) RESPIMAT INHALER IH SCH (10:10)
[2021-01-16] MEDS: BUDESONIDE/FORMETEROL FUMARATE 80/4.5 mcg INHALER IH SCH ×2 (10:10→21:34)
[2021-01-16] MEDS: TOLNAFTATE 1% CREAM 15 GM TUBE TP SCH ×2 (10:10→21:34)
[2021-01-16] MEDS: QUEtiapine FUMARATE 25 MG TABLET PO SCH (21:33)
[2021-01-16] MEDS: THIAMINE HCL 100 MG TABLET (FP) PO SCH (21:34)
[2021-01-17] MEDS ORDERED: methaDONE HCL 40 MG DISPERSABLE TABLET ONE (03:00)
[2021-01-17] MEDS ORDERED: methaDONE HCL 10 MG TABLET ONE (03:00)
[2021-01-17] MEDS: methaDONE 80 MG, methaDONE 10 MG PO SCH (06:18)
[2021-01-17] MEDS: NICOTINE POLACRILEX 2 MG GUM BUC PRN ×4 (07:29→21:22)
[2021-01-17] MEDS: TOLNAFTATE 1% CREAM 15 GM TUBE TP SCH ×2 (10:21→21:10)
[2021-01-17] MEDS: HYDROCHLOROTHIAZIDE 12.5 MG CAPSULE (FP) PO SCH (10:21)
[2021-01-17] MEDS: BUDESONIDE/FORMETEROL FUMARATE 80/4.5 mcg INHALER IH SCH ×2 (10:21→21:09)
[2021-01-17] MEDS: BICTEGRAV/EMTRICIT/TENOFOV (BIKTARVY) 50-200-25 MG TABLET PO SCH (10:21)
[2021-01-17] MEDS: NICOTINE 7 MG/24 HOURS TOPICAL PATCH TD SCH (10:21)
[2021-01-17] MEDS: TIOTROPIUM BROMIDE 2.5 MCG (SPIRIVA) RESPIMAT INHALER IH SCH (10:21)
[2021-01-17] MEDS: PANTOPRAZOLE 40 MG TABLET PO SCH (10:21)
[2021-01-17] MEDS: PRENATAL VITAMINS W/ FOLIC ACID TABLET (FP) PO SCH (10:21)
[2021-01-17] MEDS: QUEtiapine FUMARATE 25 MG TABLET PO SCH (21:09)
[2021-01-17] MEDS: THIAMINE HCL 100 MG TABLET (FP) PO SCH (21:09)
[2021-01-18] MEDS ORDERED: methaDONE HCL 10 MG TABLET ONE (04:14)
[2021-01-18] MEDS ORDERED: methaDONE HCL 40 MG DISPERSABLE TABLET ONE (04:14)
[2021-01-18] MEDS: methaDONE 80 MG, methaDONE 10 MG PO SCH (06:09)
[2021-01-18] MEDS: NICOTINE POLACRILEX 2 MG GUM BUC PRN ×4 (06:10→21:23)
[2021-01-18] MEDS: HYDROCHLOROTHIAZIDE 12.5 MG CAPSULE (FP) PO SCH (10:52)
[2021-01-18] MEDS: PANTOPRAZOLE 40 MG TABLET PO SCH (10:52)
[2021-01-18] MEDS: NICOTINE 7 MG/24 HOURS TOPICAL PATCH TD SCH (10:52)
[2021-01-18] MEDS: PRENATAL VITAMINS W/ FOLIC ACID TABLET (FP) PO SCH (10:52)
[2021-01-18] MEDS: BICTEGRAV/EMTRICIT/TENOFOV (BIKTARVY) 50-200-25 MG TABLET PO SCH (10:52)
[2021-01-18] MEDS: TOLNAFTATE 1% CREAM 15 GM TUBE TP SCH ×2 (10:53→21:23)
[2021-01-18] MEDS: BUDESONIDE/FORMETEROL FUMARATE 80/4.5 mcg INHALER IH SCH ×2 (10:53→21:23)
[2021-01-18] MEDS: TIOTROPIUM BROMIDE 2.5 MCG (SPIRIVA) RESPIMAT INHALER IH SCH (10:53)
[2021-01-18] MEDS: THIAMINE HCL 100 MG TABLET (FP) PO SCH (21:22)
[2021-01-18] MEDS: MELATONIN 5 MG TABLETS PO PRN (21:22)
[2021-01-18] MEDS: QUEtiapine FUMARATE 50 MG TABLET PO SCH (21:23)
[2021-01-19] MEDS ORDERED: methaDONE HCL 40 MG DISPERSABLE TABLET ONE (03:24)
[2021-01-19] MEDS ORDERED: methaDONE HCL 10 MG TABLET ONE (03:25)
[2021-01-19] MEDS: methaDONE 80 MG, methaDONE 10 MG PO SCH (06:12)
[2021-01-19] MEDS: NICOTINE POLACRILEX 2 MG GUM BUC PRN ×3 (06:12→17:53)
[2021-01-19] MEDS: BICTEGRAV/EMTRICIT/TENOFOV (BIKTARVY) 50-200-25 MG TABLET PO SCH (10:16)
[2021-01-19] MEDS: PRENATAL VITAMINS W/ FOLIC ACID TABLET (FP) PO SCH (10:16)
[2021-01-19] MEDS: NICOTINE 7 MG/24 HOURS TOPICAL PATCH TD SCH (10:16)
[2021-01-19] MEDS: TIOTROPIUM BROMIDE 2.5 MCG (SPIRIVA) RESPIMAT INHALER IH SCH (10:16)
[2021-01-19] MEDS: PANTOPRAZOLE 40 MG TABLET PO SCH (10:16)
[2021-01-19] MEDS: HYDROCHLOROTHIAZIDE 12.5 MG CAPSULE (FP) PO SCH (10:16)
[2021-01-19] MEDS: BUDESONIDE/FORMETEROL FUMARATE 80/4.5 mcg INHALER IH SCH ×2 (10:16→21:18)
[2021-01-19] MEDS: TOLNAFTATE 1% CREAM 15 GM TUBE TP SCH ×2 (10:16→21:19)
[2021-01-19] MEDS: QUEtiapine FUMARATE 50 MG TABLET PO SCH (21:18)
[2021-01-19] MEDS: THIAMINE HCL 100 MG TABLET (FP) PO SCH (21:18)
[2021-01-20] MEDS ORDERED: methaDONE HCL 40 MG DISPERSABLE TABLET ONE (03:03)
[2021-01-20] MEDS ORDERED: methaDONE HCL 10 MG TABLET ONE (03:03)
[2021-01-20] MEDS: methaDONE 80 MG, methaDONE 10 MG PO SCH (05:26)
[2021-01-20] MEDS: NICOTINE POLACRILEX 2 MG GUM BUC PRN ×2 (05:28→12:14)
[2021-01-20] MEDS: HYDROCHLOROTHIAZIDE 12.5 MG CAPSULE (FP) PO SCH (10:35)
[2021-01-20] MEDS: NICOTINE 7 MG/24 HOURS TOPICAL PATCH TD SCH (10:35)
[2021-01-20] MEDS: BICTEGRAV/EMTRICIT/TENOFOV (BIKTARVY) 50-200-25 MG TABLET PO SCH (10:35)
[2021-01-20] MEDS: PRENATAL VITAMINS W/ FOLIC ACID TABLET (FP) PO SCH (10:35)
[2021-01-20] MEDS: PANTOPRAZOLE 40 MG TABLET PO SCH (10:35)
[2021-01-20] MEDS: TOLNAFTATE 1% CREAM 15 GM TUBE TP SCH ×2 (10:37→21:16)
[2021-01-20] MEDS: TIOTROPIUM BROMIDE 2.5 MCG (SPIRIVA) RESPIMAT INHALER IH SCH (10:37)
[2021-01-20] MEDS: BUDESONIDE/FORMETEROL FUMARATE 80/4.5 mcg INHALER IH SCH ×2 (10:37→21:16)
[2021-01-20] MEDS: THIAMINE HCL 100 MG TABLET (FP) PO SCH (21:16)
[2021-01-20] MEDS: MELATONIN 5 MG TABLETS PO PRN (21:16)
[2021-01-20] MEDS: QUEtiapine FUMARATE 50 MG TABLET PO SCH (21:16)
[2021-01-21] MEDS ORDERED: methaDONE HCL 40 MG DISPERSABLE TABLET ONE (03:47)
[2021-01-21] MEDS ORDERED: methaDONE HCL 10 MG TABLET ONE (03:47)
[2021-01-21] MEDS: methaDONE 80 MG, methaDONE 10 MG PO SCH (06:27)
[2021-01-21] MEDS: PANTOPRAZOLE 40 MG TABLET PO SCH (09:55)
[2021-01-21] MEDS: BUDESONIDE/FORMETEROL FUMARATE 80/4.5 mcg INHALER IH SCH ×2 (09:55→21:04)
[2021-01-21] MEDS: PRENATAL VITAMINS W/ FOLIC ACID TABLET (FP) PO SCH (09:55)
[2021-01-21] MEDS: NICOTINE 7 MG/24 HOURS TOPICAL PATCH TD SCH (09:55)
[2021-01-21] MEDS: BICTEGRAV/EMTRICIT/TENOFOV (BIKTARVY) 50-200-25 MG TABLET PO SCH (09:55)
[2021-01-21] MEDS: HYDROCHLOROTHIAZIDE 12.5 MG CAPSULE (FP) PO SCH (09:55)
[2021-01-21] MEDS: TIOTROPIUM BROMIDE 2.5 MCG (SPIRIVA) RESPIMAT INHALER IH SCH (09:56)
[2021-01-21] MEDS: NICOTINE POLACRILEX 2 MG GUM BUC PRN (09:56)
[2021-01-21] MEDS: TOLNAFTATE 1% CREAM 15 GM TUBE TP SCH ×2 (09:56→21:03)
[2021-01-21] MEDS: QUEtiapine FUMARATE 50 MG TABLET PO SCH (21:03)
[2021-01-21] MEDS: THIAMINE HCL 100 MG TABLET (FP) PO SCH (21:03)
[2021-01-21] MEDS: MELATONIN 5 MG TABLETS PO PRN (21:03)
[2021-01-22] MEDS ORDERED: methaDONE HCL 40 MG DISPERSABLE TABLET ONE (03:19)
[2021-01-22] MEDS ORDERED: methaDONE HCL 10 MG TABLET ONE (03:19)
[2021-01-22] MEDS: NICOTINE POLACRILEX 2 MG GUM BUC PRN ×2 (06:47→10:27)
[2021-01-22] MEDS: methaDONE 80 MG, methaDONE 10 MG PO SCH (06:47)
[2021-01-22] MEDS: BICTEGRAV/EMTRICIT/TENOFOV (BIKTARVY) 50-200-25 MG TABLET PO SCH (10:26)
[2021-01-22] MEDS: TOLNAFTATE 1% CREAM 15 GM TUBE TP SCH ×2 (10:26→21:33)
[2021-01-22] MEDS: PRENATAL VITAMINS W/ FOLIC ACID TABLET (FP) PO SCH (10:26)
[2021-01-22] MEDS: BUDESONIDE/FORMETEROL FUMARATE 80/4.5 mcg INHALER IH SCH ×2 (10:26→21:33)
[2021-01-22] MEDS: TIOTROPIUM BROMIDE 2.5 MCG (SPIRIVA) RESPIMAT INHALER IH SCH (10:26)
[2021-01-22] MEDS: HYDROCHLOROTHIAZIDE 12.5 MG CAPSULE (FP) PO SCH (10:26)
[2021-01-22] MEDS: PANTOPRAZOLE 40 MG TABLET PO SCH (10:26)
[2021-01-22] MEDS: NICOTINE 7 MG/24 HOURS TOPICAL PATCH TD SCH (10:26)
[2021-01-22] MEDS: MELATONIN 5 MG TABLETS PO PRN (21:33)
[2021-01-22] MEDS: QUEtiapine FUMARATE 50 MG TABLET PO SCH (21:33)
[2021-01-22] MEDS: THIAMINE HCL 100 MG TABLET (FP) PO SCH (21:33)
[2021-01-23] MEDS ORDERED: methaDONE HCL 10 MG TABLET ONE (03:01)
[2021-01-23] MEDS ORDERED: methaDONE HCL 40 MG DISPERSABLE TABLET ONE (03:01)
[2021-01-23] MEDS ORDERED: methaDONE HCL 10 MG TABLET PO SCH (06:00)
[2021-01-23] MEDS: methaDONE 80 MG, methaDONE 10 MG PO SCH ×2 (06:30→06:31)
[2021-01-23] MEDS: NICOTINE POLACRILEX 2 MG GUM BUC PRN (06:30)
[2021-01-23] MEDS: BUDESONIDE/FORMETEROL FUMARATE 80/4.5 mcg INHALER IH SCH ×2 (10:11→21:12)
[2021-01-23] MEDS: PANTOPRAZOLE 40 MG TABLET PO SCH (10:11)
[2021-01-23] MEDS: HYDROCHLOROTHIAZIDE 12.5 MG CAPSULE (FP) PO SCH (10:11)
[2021-01-23] MEDS: BICTEGRAV/EMTRICIT/TENOFOV (BIKTARVY) 50-200-25 MG TABLET PO SCH (10:11)
[2021-01-23] MEDS: NICOTINE 7 MG/24 HOURS TOPICAL PATCH TD SCH (10:11)
[2021-01-23] MEDS: TIOTROPIUM BROMIDE 2.5 MCG (SPIRIVA) RESPIMAT INHALER IH SCH (10:11)
[2021-01-23] MEDS: PRENATAL VITAMINS W/ FOLIC ACID TABLET (FP) PO SCH (10:11)
[2021-01-23] MEDS: TOLNAFTATE 1% CREAM 15 GM TUBE TP SCH ×2 (10:12→21:12)
[2021-01-23] MEDS: THIAMINE HCL 100 MG TABLET (FP) PO SCH (21:11)
[2021-01-23] MEDS: QUEtiapine FUMARATE 50 MG TABLET PO SCH (21:12)
[2021-01-23] MEDS: MELATONIN 5 MG TABLETS PO PRN (21:12)
[2021-01-24] MEDS ORDERED: methaDONE HCL 40 MG DISPERSABLE TABLET ONE (04:05)
[2021-01-24] MEDS ORDERED: methaDONE HCL 10 MG TABLET ONE (04:06)
[2021-01-24] MEDS: methaDONE 80 MG, methaDONE 10 MG PO SCH (06:49)
[2021-01-24 07:14] VITALS: BP 113/66; PULSE 67; TEMP 98.6
[2021-01-24] MEDS: TIOTROPIUM BROMIDE 2.5 MCG (SPIRIVA) RESPIMAT INHALER IH SCH (09:02)
[2021-01-24] MEDS: BUDESONIDE/FORMETEROL FUMARATE 80/4.5 mcg INHALER IH SCH (09:02)
[2021-01-24] MEDS: PRENATAL VITAMINS W/ FOLIC ACID TABLET (FP) PO SCH (09:04)
[2021-01-24] MEDS: BICTEGRAV/EMTRICIT/TENOFOV (BIKTARVY) 50-200-25 MG TABLET PO SCH (09:04)
[2021-01-24] MEDS: HYDROCHLOROTHIAZIDE 12.5 MG CAPSULE (FP) PO SCH (09:04)
[2021-01-24] MEDS: PANTOPRAZOLE 40 MG TABLET PO SCH (09:04)
[2021-01-24] MEDS: NICOTINE 7 MG/24 HOURS TOPICAL PATCH TD SCH (09:05)
[2021-01-24] MEDS: TOLNAFTATE 1% CREAM 15 GM TUBE TP SCH (09:06)
== END 2021-01-24 09:07 | disposition home or self-care (01) | DRG 772 ==
LOC: YASAS 20:33 → Y3W 01-03 05:57
PROVIDERS: ADMIT Allergy & Immunology; ATTEND Allergy & Immunology
PROC: HZ42ZZZ Group Counseling for Substance Abuse Treatment, Cognitive-Behavioral (ICD-10-PCS; principal; 2021-01-03)
DX: F14.20 Cocaine dependence, uncomplicated (principal); F11.20 Opioid dependence, uncomplicated; F17.210 Nicotine dependence, cigarettes, uncomplicated; F19.24 Other psychoactive substance dependence with psychoactive substance-induced mood disorder; F32.9 Major depressive disorder, single episode, unspecified; F41.9 Anxiety disorder, unspecified; Z21 Asymptomatic human immunodeficiency virus [HIV] infection status; G47.00 Insomnia, unspecified; J45.20 Mild intermittent asthma, uncomplicated; K21.9 Gastro-esophageal reflux disease without esophagitis; B35.3 Tinea pedis; Z86.19 Personal history of other infectious and parasitic diseases; Z88.0 Allergy status to penicillin; Z91.013 Allergy to seafood
CPT/HCPCS: 36415; 80053; 81003; 85027; 86780; 87811; 90670; 90686; C9803; G0008; G0009; U0003; U0005

== ENCOUNTER 2021-08-30 16:45 | Inpatient (IN) | payer OTHER ==
[2021-08-30 18:23] VITALS: BMI 21.6
[2021-08-30] MEDS ORDERED: IBUPROFEN 400 MG TABLET (FP) PO PRN (19:33)
[2021-08-30] MEDS ORDERED: P-EPHED 60MG/TRIPROLIDI 2.5MG TABLET PO PRN (19:33)
[2021-08-30] MEDS ORDERED: ACETAMINOPHEN 325 MG TABLET (FP) PO PRN (19:33)
[2021-08-30] MEDS ORDERED: LOPERAMIDE HCL 2 MG CAPSULE PO PRN (19:33)
[2021-08-30] MEDS ORDERED: guaiFENesin 200 MG/10 ML 10 ML UNIT-DOSE CUPS PO PRN (19:33)
[2021-08-30] MEDS ORDERED: NICOTINE 10 MG CARTRIDGE (INHALER) IH PRN (19:33)
[2021-08-30] MEDS ORDERED: MAGNESIUM CITRATE 300 ML BOTTLE PO PRN (19:33)
[2021-08-30] MEDS ORDERED: MAGNESIUM HYDROX 2400MG/30ML ORAL SUSPENSION 30 ML CUP PO PRN (19:33)
[2021-08-30] MEDS ORDERED: QUEtiapine FUMARATE 50 MG TABLET PO ONE (22:00)
[2021-08-30] MEDS: MELATONIN 5 MG TABLETS PO SCH (22:55)
[2021-08-30] MEDS: THIAMINE HCL 100 MG TABLET (FP) PO SCH (22:55)
[2021-08-30] MEDS: hydrOXYzine PAMOATE 25 MG CAPSULE (FP) PO SCH (22:58)
[2021-08-31] MEDS: hydrOXYzine PAMOATE 25 MG CAPSULE (FP) PO SCH ×3 (06:53→15:15)
[2021-08-31] MEDS ORDERED: methaDONE HCL 10 MG TABLET PO ONE (10:16)
[2021-08-31] MEDS ORDERED: ALBUTEROL SO4 HFA INHALER IH PRN (10:46)
[2021-08-31] MEDS ORDERED: methaDONE HCL 40 MG DISPERSABLE TABLET ONE (11:19)
[2021-08-31] MEDS ORDERED: methaDONE HCL 10 MG TABLET ONE (11:19)
[2021-08-31] MEDS: PRENATAL VITAMINS W/ FOLIC ACID TABLET (FP) PO SCH (11:29)
[2021-08-31] MEDS: BUDESONIDE/FORMETEROL FUMARATE 80/4.5 mcg INHALER IH SCH ×2 (11:29→21:14)
[2021-08-31] MEDS: HYDROCHLOROTHIAZIDE 12.5 MG CAPSULE (FP) PO SCH (11:29)
[2021-08-31] MEDS ORDERED: BICTEGRAV/EMTRICIT/TENOFOV (BIKTARVY) 50-200-25 MG TABLET PO SCH (11:30)
[2021-08-31 12:09] LABS: HEMOGLOBIN 12.5 GM/dL (11.7-16.9); MCH 27.8 pg (25.7-33.7); MCHC 32.8 g/dl (32.0-35.9); MEAN CELL VOLUME 84.7 fl (80-96); MEAN PLT VOLUME 8.2 fl (7.5-11.1); PLATELET COUNT 164 10^3/uL (134-434); RBC 4.49 M/mm3 (4.00-5.60); RDW 15.8 % (11.9-15.9); WHITE BLOOD COUNT 2.7 K/mm3 (4.0-10.0)
[2021-08-31 12:25] LABS: ALBUMIN 2.5 g/dl (3.4-5.0)
[2021-08-31 12:26] LABS: CREATININE 1.2 mg/dL (0.55-1.3)
[2021-08-31 12:27] LABS: BILIRUBIN,TOTAL 0.3 mg/dL (0.2-1); BLOOD UREA NITROGEN 13.2 mg/dL (7-18)
[2021-08-31 12:28] LABS: CALCIUM 8.5 mg/dL (8.5-10.1)
[2021-08-31] MEDS ORDERED: hydrOXYzine PAMOATE 25 MG CAPSULE (FP) PO PRN (14:44)
[2021-08-31] MEDS: TIOTROPIUM BROMIDE 2.5 MCG (SPIRIVA) RESPIMAT INHALER IH SCH (15:21)
[2021-08-31 17:31] LABS: PH,URINE 5.5 (5.0-8.0); URINE APPEARANCE CLEAR; URINE BILIRUBIN NEGATIVE (NEGATIVE); URINE COLOR YELLOW; URINE GLUCOSE (UA) NEGATIVE (NEGATIVE); URINE KETONE NEGATIVE (NEGATIVE); URINE LEUK ESTERASE NEGATIVE (NEGATIVE); URINE NITRITE NEGATIVE (NEGATIVE); URINE PROTEIN NEGATIVE (NEGATIVE); URINE UROBILINOGEN 0.2 mg/dL (0.2-1.0)
[2021-08-31 17:46] LABS: SYPHILIS W/ RPR CONF NON-REACTIVE (NONREACTIVE)
[2021-08-31] MEDS: THIAMINE HCL 100 MG TABLET (FP) PO SCH (21:12)
[2021-08-31] MEDS: MELATONIN 5 MG TABLETS PO SCH (21:12)
[2021-08-31] MEDS: QUEtiapine FUMARATE 25 MG TABLET PO SCH (21:13)
[2021-09-01] MEDS ORDERED: methaDONE HCL 10 MG TABLET PO SCH (06:00)
[2021-09-01] MEDS ORDERED: methaDONE HCL 10 MG TABLET ONE (06:11)
[2021-09-01] MEDS ORDERED: methaDONE HCL 40 MG DISPERSABLE TABLET ONE (06:11)
[2021-09-01] MEDS: PRENATAL VITAMINS W/ FOLIC ACID TABLET (FP) PO SCH (09:46)
[2021-09-01] MEDS: HYDROCHLOROTHIAZIDE 12.5 MG CAPSULE (FP) PO SCH (09:46)
[2021-09-01] MEDS: BUDESONIDE/FORMETEROL FUMARATE 80/4.5 mcg INHALER IH SCH ×2 (09:56→21:18)
[2021-09-01] MEDS: TIOTROPIUM BROMIDE 2.5 MCG (SPIRIVA) RESPIMAT INHALER IH SCH (09:56)
[2021-09-01] MEDS: NICOTINE 21 MG/24 HOURS TOPICAL PATCH TD SCH (12:52)
[2021-09-01] MEDS: QUEtiapine FUMARATE 25 MG TABLET PO SCH (21:16)
[2021-09-01] MEDS: MELATONIN 5 MG TABLETS PO SCH (21:16)
[2021-09-01] MEDS: THIAMINE HCL 100 MG TABLET (FP) PO SCH (21:16)
[2021-09-02] MEDS ORDERED: methaDONE HCL 40 MG DISPERSABLE TABLET ONE (03:56)
[2021-09-02] MEDS ORDERED: methaDONE HCL 10 MG TABLET ONE (03:56)
[2021-09-02] MEDS: BUDESONIDE/FORMETEROL FUMARATE 80/4.5 mcg INHALER IH SCH ×2 (09:37→21:20)
[2021-09-02] MEDS: HYDROCHLOROTHIAZIDE 12.5 MG CAPSULE (FP) PO SCH (09:37)
[2021-09-02] MEDS: TIOTROPIUM BROMIDE 2.5 MCG (SPIRIVA) RESPIMAT INHALER IH SCH (09:37)
[2021-09-02] MEDS: PRENATAL VITAMINS W/ FOLIC ACID TABLET (FP) PO SCH (09:37)
[2021-09-02] MEDS: BICTEGRAV/EMTRICIT/TENOFOV (BIKTARVY) 50-200-25 MG TABLET PO SCH (09:38)
[2021-09-02] MEDS: NICOTINE 21 MG/24 HOURS TOPICAL PATCH TD SCH (09:38)
[2021-09-02] MEDS: MELATONIN 5 MG TABLETS PO SCH (21:19)
[2021-09-02] MEDS: THIAMINE HCL 100 MG TABLET (FP) PO SCH (21:19)
[2021-09-02] MEDS: QUEtiapine FUMARATE 25 MG TABLET PO SCH (21:19)
[2021-09-02] MEDS: MAG HYDROX/AL HYDROX/SIMETH 30 ML UNIT-DOSE CUP PO PRN (21:21)
[2021-09-03] MEDS ORDERED: methaDONE HCL 40 MG DISPERSABLE TABLET ONE (05:26)
[2021-09-03] MEDS ORDERED: methaDONE HCL 10 MG TABLET ONE (05:26)
[2021-09-03] MEDS: BICTEGRAV/EMTRICIT/TENOFOV (BIKTARVY) 50-200-25 MG TABLET PO SCH (09:04)
[2021-09-03] MEDS: PRENATAL VITAMINS W/ FOLIC ACID TABLET (FP) PO SCH (09:52)
[2021-09-03] MEDS: TIOTROPIUM BROMIDE 2.5 MCG (SPIRIVA) RESPIMAT INHALER IH SCH (09:53)
[2021-09-03] MEDS: HYDROCHLOROTHIAZIDE 12.5 MG CAPSULE (FP) PO SCH (09:53)
[2021-09-03] MEDS: BUDESONIDE/FORMETEROL FUMARATE 80/4.5 mcg INHALER IH SCH (09:53)
[2021-09-03] MEDS: NICOTINE 21 MG/24 HOURS TOPICAL PATCH TD SCH (09:54)
[2021-09-03] MEDS: MELATONIN 5 MG TABLETS PO SCH (21:14)
[2021-09-03] MEDS: QUEtiapine FUMARATE 25 MG TABLET PO SCH (21:14)
[2021-09-03] MEDS: THIAMINE HCL 100 MG TABLET (FP) PO SCH (21:14)
[2021-09-04] MEDS: BUDESONIDE/FORMETEROL FUMARATE 80/4.5 mcg INHALER IH SCH ×3 (00:36→21:15)
[2021-09-04] MEDS: BICTEGRAV/EMTRICIT/TENOFOV (BIKTARVY) 50-200-25 MG TABLET PO SCH ×2 (02:50→07:01)
[2021-09-04] MEDS ORDERED: methaDONE HCL 10 MG TABLET ONE (04:03)
[2021-09-04] MEDS ORDERED: methaDONE HCL 40 MG DISPERSABLE TABLET ONE (04:04)
[2021-09-04] MEDS: PRENATAL VITAMINS W/ FOLIC ACID TABLET (FP) PO SCH (09:46)
[2021-09-04] MEDS: TIOTROPIUM BROMIDE 2.5 MCG (SPIRIVA) RESPIMAT INHALER IH SCH (09:46)
[2021-09-04] MEDS: HYDROCHLOROTHIAZIDE 12.5 MG CAPSULE (FP) PO SCH (09:46)
[2021-09-04] MEDS: NICOTINE 21 MG/24 HOURS TOPICAL PATCH TD SCH (09:47)
[2021-09-04] MEDS: PANTOPRAZOLE 20 MG TABLET PO SCH (10:22)
[2021-09-04] MEDS: THIAMINE HCL 100 MG TABLET (FP) PO SCH (21:15)
[2021-09-04] MEDS: MELATONIN 5 MG TABLETS PO SCH (21:15)
[2021-09-04] MEDS: QUEtiapine FUMARATE 25 MG TABLET PO SCH (21:15)
[2021-09-05] MEDS ORDERED: methaDONE HCL 10 MG TABLET ONE (03:34)
[2021-09-05] MEDS ORDERED: methaDONE HCL 40 MG DISPERSABLE TABLET ONE (03:35)
[2021-09-05] MEDS: BICTEGRAV/EMTRICIT/TENOFOV (BIKTARVY) 50-200-25 MG TABLET PO SCH (07:08)
[2021-09-05] MEDS: PRENATAL VITAMINS W/ FOLIC ACID TABLET (FP) PO SCH (10:15)
[2021-09-05] MEDS: NICOTINE 21 MG/24 HOURS TOPICAL PATCH TD SCH (10:15)
[2021-09-05] MEDS: PANTOPRAZOLE 20 MG TABLET PO SCH (10:16)
[2021-09-05] MEDS: BUDESONIDE/FORMETEROL FUMARATE 80/4.5 mcg INHALER IH SCH ×2 (10:16→21:01)
[2021-09-05] MEDS: TIOTROPIUM BROMIDE 2.5 MCG (SPIRIVA) RESPIMAT INHALER IH SCH (10:16)
[2021-09-05] MEDS: HYDROCHLOROTHIAZIDE 12.5 MG CAPSULE (FP) PO SCH (10:16)
[2021-09-05] MEDS: QUEtiapine FUMARATE 25 MG TABLET PO SCH (21:00)
[2021-09-05] MEDS: THIAMINE HCL 100 MG TABLET (FP) PO SCH (21:00)
[2021-09-05] MEDS: MELATONIN 5 MG TABLETS PO SCH (21:00)
[2021-09-06] MEDS ORDERED: methaDONE HCL 10 MG TABLET ONE (03:48)
[2021-09-06] MEDS ORDERED: methaDONE HCL 40 MG DISPERSABLE TABLET ONE (03:48)
[2021-09-06] MEDS: BICTEGRAV/EMTRICIT/TENOFOV (BIKTARVY) 50-200-25 MG TABLET PO SCH (07:11)
[2021-09-06] MEDS: BUDESONIDE/FORMETEROL FUMARATE 80/4.5 mcg INHALER IH SCH ×2 (09:31→21:20)
[2021-09-06] MEDS: PRENATAL VITAMINS W/ FOLIC ACID TABLET (FP) PO SCH (09:31)
[2021-09-06] MEDS: PANTOPRAZOLE 20 MG TABLET PO SCH (09:31)
[2021-09-06] MEDS: NICOTINE 21 MG/24 HOURS TOPICAL PATCH TD SCH (09:31)
[2021-09-06] MEDS: HYDROCHLOROTHIAZIDE 12.5 MG CAPSULE (FP) PO SCH (09:31)
[2021-09-06] MEDS: TIOTROPIUM BROMIDE 2.5 MCG (SPIRIVA) RESPIMAT INHALER IH SCH (09:32)
[2021-09-06] MEDS: MELATONIN 5 MG TABLETS PO SCH (21:20)
[2021-09-06] MEDS: QUEtiapine FUMARATE 25 MG TABLET PO SCH (21:20)
[2021-09-06] MEDS: THIAMINE HCL 100 MG TABLET (FP) PO SCH (21:20)
[2021-09-06] MEDS: MAG HYDROX/AL HYDROX/SIMETH 30 ML UNIT-DOSE CUP PO PRN (21:21)
[2021-09-07] MEDS ORDERED: methaDONE HCL 10 MG TABLET ONE (03:03)
[2021-09-07] MEDS ORDERED: methaDONE HCL 40 MG DISPERSABLE TABLET ONE (03:03)
[2021-09-07] MEDS: BICTEGRAV/EMTRICIT/TENOFOV (BIKTARVY) 50-200-25 MG TABLET PO SCH (07:14)
[2021-09-07] MEDS: PRENATAL VITAMINS W/ FOLIC ACID TABLET (FP) PO SCH (09:49)
[2021-09-07] MEDS: PANTOPRAZOLE 20 MG TABLET PO SCH (09:50)
[2021-09-07] MEDS: BUDESONIDE/FORMETEROL FUMARATE 80/4.5 mcg INHALER IH SCH ×2 (09:50→21:48)
[2021-09-07] MEDS: TIOTROPIUM BROMIDE 2.5 MCG (SPIRIVA) RESPIMAT INHALER IH SCH (09:50)
[2021-09-07] MEDS: HYDROCHLOROTHIAZIDE 12.5 MG CAPSULE (FP) PO SCH (09:50)
[2021-09-07] MEDS: NICOTINE 21 MG/24 HOURS TOPICAL PATCH TD SCH (09:51)
[2021-09-07] MEDS: QUEtiapine FUMARATE 25 MG TABLET PO SCH (21:13)
[2021-09-07] MEDS: THIAMINE HCL 100 MG TABLET (FP) PO SCH (21:13)
[2021-09-07] MEDS: MELATONIN 5 MG TABLETS PO SCH (21:13)
[2021-09-08] MEDS ORDERED: methaDONE HCL 40 MG DISPERSABLE TABLET ONE (04:11)
[2021-09-08] MEDS ORDERED: methaDONE HCL 10 MG TABLET ONE (04:11)
[2021-09-08] MEDS: BICTEGRAV/EMTRICIT/TENOFOV (BIKTARVY) 50-200-25 MG TABLET PO SCH (07:07)
[2021-09-08] MEDS: PRENATAL VITAMINS W/ FOLIC ACID TABLET (FP) PO SCH (09:36)
[2021-09-08] MEDS: NICOTINE 21 MG/24 HOURS TOPICAL PATCH TD SCH (09:37)
[2021-09-08] MEDS: HYDROCHLOROTHIAZIDE 12.5 MG CAPSULE (FP) PO SCH (09:37)
[2021-09-08] MEDS: PANTOPRAZOLE 20 MG TABLET PO SCH (09:37)
[2021-09-08] MEDS: BUDESONIDE/FORMETEROL FUMARATE 80/4.5 mcg INHALER IH SCH ×2 (09:38→21:14)
[2021-09-08] MEDS: TIOTROPIUM BROMIDE 2.5 MCG (SPIRIVA) RESPIMAT INHALER IH SCH (09:38)
[2021-09-08] MEDS: QUEtiapine FUMARATE 25 MG TABLET PO SCH (21:11)
[2021-09-08] MEDS: THIAMINE HCL 100 MG TABLET (FP) PO SCH (21:11)
[2021-09-08] MEDS: MELATONIN 5 MG TABLETS PO SCH (21:11)
[2021-09-09] MEDS ORDERED: methaDONE HCL 10 MG TABLET ONE (03:39)
[2021-09-09] MEDS ORDERED: methaDONE HCL 40 MG DISPERSABLE TABLET ONE (03:40)
[2021-09-09] MEDS: BICTEGRAV/EMTRICIT/TENOFOV (BIKTARVY) 50-200-25 MG TABLET PO SCH (07:02)
[2021-09-09] MEDS: PRENATAL VITAMINS W/ FOLIC ACID TABLET (FP) PO SCH (09:29)
[2021-09-09] MEDS: HYDROCHLOROTHIAZIDE 12.5 MG CAPSULE (FP) PO SCH (09:29)
[2021-09-09] MEDS: BUDESONIDE/FORMETEROL FUMARATE 80/4.5 mcg INHALER IH SCH ×2 (09:29→21:11)
[2021-09-09] MEDS: PANTOPRAZOLE 20 MG TABLET PO SCH (09:29)
[2021-09-09] MEDS: TIOTROPIUM BROMIDE 2.5 MCG (SPIRIVA) RESPIMAT INHALER IH SCH (09:30)
[2021-09-09] MEDS: NICOTINE 21 MG/24 HOURS TOPICAL PATCH TD SCH (09:30)
[2021-09-09] MEDS: QUEtiapine FUMARATE 25 MG TABLET PO SCH (21:11)
[2021-09-09] MEDS: MELATONIN 5 MG TABLETS PO SCH (21:11)
[2021-09-09] MEDS: THIAMINE HCL 100 MG TABLET (FP) PO SCH (21:11)
[2021-09-10] MEDS ORDERED: methaDONE HCL 10 MG TABLET ONE (03:03)
[2021-09-10] MEDS ORDERED: methaDONE HCL 40 MG DISPERSABLE TABLET ONE (03:03)
[2021-09-10] MEDS: BICTEGRAV/EMTRICIT/TENOFOV (BIKTARVY) 50-200-25 MG TABLET PO SCH (07:02)
[2021-09-10] MEDS: PANTOPRAZOLE 20 MG TABLET PO SCH (09:36)
[2021-09-10] MEDS: HYDROCHLOROTHIAZIDE 12.5 MG CAPSULE (FP) PO SCH (09:36)
[2021-09-10] MEDS: NICOTINE 21 MG/24 HOURS TOPICAL PATCH TD SCH (09:36)
[2021-09-10] MEDS: PRENATAL VITAMINS W/ FOLIC ACID TABLET (FP) PO SCH (09:36)
[2021-09-10] MEDS: TIOTROPIUM BROMIDE 2.5 MCG (SPIRIVA) RESPIMAT INHALER IH SCH (09:37)
[2021-09-10] MEDS: BUDESONIDE/FORMETEROL FUMARATE 80/4.5 mcg INHALER IH SCH ×2 (09:38→21:10)
[2021-09-10] MEDS: QUEtiapine FUMARATE 25 MG TABLET PO SCH (21:10)
[2021-09-10] MEDS: THIAMINE HCL 100 MG TABLET (FP) PO SCH (21:11)
[2021-09-10] MEDS: MELATONIN 5 MG TABLETS PO SCH (21:11)
[2021-09-11] MEDS ORDERED: methaDONE HCL 10 MG TABLET ONE (03:03)
[2021-09-11] MEDS ORDERED: methaDONE HCL 40 MG DISPERSABLE TABLET ONE (03:04)
[2021-09-11] MEDS: PRENATAL VITAMINS W/ FOLIC ACID TABLET (FP) PO SCH (09:26)
[2021-09-11] MEDS: BUDESONIDE/FORMETEROL FUMARATE 80/4.5 mcg INHALER IH SCH ×2 (09:26→21:24)
[2021-09-11] MEDS: BICTEGRAV/EMTRICIT/TENOFOV (BIKTARVY) 50-200-25 MG TABLET PO SCH (09:27)
[2021-09-11] MEDS: HYDROCHLOROTHIAZIDE 12.5 MG CAPSULE (FP) PO SCH (09:27)
[2021-09-11] MEDS: NICOTINE 21 MG/24 HOURS TOPICAL PATCH TD SCH (09:27)
[2021-09-11] MEDS: TIOTROPIUM BROMIDE 2.5 MCG (SPIRIVA) RESPIMAT INHALER IH SCH (09:27)
[2021-09-11] MEDS: PANTOPRAZOLE 20 MG TABLET PO SCH (09:27)
[2021-09-11] MEDS: MELATONIN 5 MG TABLETS PO SCH (21:24)
[2021-09-11] MEDS: QUEtiapine FUMARATE 25 MG TABLET PO SCH (21:24)
[2021-09-11] MEDS: THIAMINE HCL 100 MG TABLET (FP) PO SCH (21:24)
[2021-09-12] MEDS ORDERED: methaDONE HCL 40 MG DISPERSABLE TABLET ONE (03:19)
[2021-09-12] MEDS ORDERED: methaDONE HCL 10 MG TABLET ONE (03:19)
[2021-09-12] MEDS: BICTEGRAV/EMTRICIT/TENOFOV (BIKTARVY) 50-200-25 MG TABLET PO SCH (07:17)
[2021-09-12] MEDS: HYDROCHLOROTHIAZIDE 12.5 MG CAPSULE (FP) PO SCH (09:35)
[2021-09-12] MEDS: PANTOPRAZOLE 20 MG TABLET PO SCH (09:35)
[2021-09-12] MEDS: PRENATAL VITAMINS W/ FOLIC ACID TABLET (FP) PO SCH (09:35)
[2021-09-12] MEDS: BUDESONIDE/FORMETEROL FUMARATE 80/4.5 mcg INHALER IH SCH ×2 (09:35→21:04)
[2021-09-12] MEDS: NICOTINE 21 MG/24 HOURS TOPICAL PATCH TD SCH (09:36)
[2021-09-12] MEDS: TIOTROPIUM BROMIDE 2.5 MCG (SPIRIVA) RESPIMAT INHALER IH SCH (09:36)
[2021-09-12] MEDS: MAG HYDROX/AL HYDROX/SIMETH 30 ML UNIT-DOSE CUP PO PRN (17:51)
[2021-09-12] MEDS: THIAMINE HCL 100 MG TABLET (FP) PO SCH (21:04)
[2021-09-12] MEDS: MELATONIN 5 MG TABLETS PO SCH (21:04)
[2021-09-12] MEDS: QUEtiapine FUMARATE 25 MG TABLET PO SCH (21:04)
[2021-09-13] MEDS ORDERED: methaDONE HCL 10 MG TABLET ONE (04:08)
[2021-09-13] MEDS ORDERED: methaDONE HCL 40 MG DISPERSABLE TABLET ONE (04:09)
[2021-09-13] MEDS: BICTEGRAV/EMTRICIT/TENOFOV (BIKTARVY) 50-200-25 MG TABLET PO SCH (07:00)
[2021-09-13] MEDS: PRENATAL VITAMINS W/ FOLIC ACID TABLET (FP) PO SCH (09:39)
[2021-09-13] MEDS: PANTOPRAZOLE 20 MG TABLET PO SCH (09:40)
[2021-09-13] MEDS: BUDESONIDE/FORMETEROL FUMARATE 80/4.5 mcg INHALER IH SCH ×2 (09:40→21:51)
[2021-09-13] MEDS: TIOTROPIUM BROMIDE 2.5 MCG (SPIRIVA) RESPIMAT INHALER IH SCH (09:40)
[2021-09-13] MEDS: NICOTINE 21 MG/24 HOURS TOPICAL PATCH TD SCH (09:41)
[2021-09-13] MEDS: HYDROCHLOROTHIAZIDE 12.5 MG CAPSULE (FP) PO SCH (09:41)
[2021-09-13] MEDS: MELATONIN 5 MG TABLETS PO SCH (21:05)
[2021-09-13] MEDS: QUEtiapine FUMARATE 25 MG TABLET PO SCH (21:05)
[2021-09-13] MEDS: THIAMINE HCL 100 MG TABLET (FP) PO SCH (21:05)
[2021-09-14] MEDS ORDERED: methaDONE HCL 10 MG TABLET ONE (03:06)
[2021-09-14] MEDS ORDERED: methaDONE HCL 40 MG DISPERSABLE TABLET ONE (03:06)
[2021-09-14] MEDS: BUDESONIDE/FORMETEROL FUMARATE 80/4.5 mcg INHALER IH SCH ×2 (09:41→21:17)
[2021-09-14] MEDS: PRENATAL VITAMINS W/ FOLIC ACID TABLET (FP) PO SCH (09:41)
[2021-09-14] MEDS: HYDROCHLOROTHIAZIDE 12.5 MG CAPSULE (FP) PO SCH (09:42)
[2021-09-14] MEDS: NICOTINE 21 MG/24 HOURS TOPICAL PATCH TD SCH (09:42)
[2021-09-14] MEDS: PANTOPRAZOLE 20 MG TABLET PO SCH (09:42)
[2021-09-14] MEDS: TIOTROPIUM BROMIDE 2.5 MCG (SPIRIVA) RESPIMAT INHALER IH SCH (09:42)
[2021-09-14] MEDS: BICTEGRAV/EMTRICIT/TENOFOV (BIKTARVY) 50-200-25 MG TABLET PO SCH (09:43)
[2021-09-14] MEDS: MELATONIN 5 MG TABLETS PO SCH (21:17)
[2021-09-14] MEDS: QUEtiapine FUMARATE 25 MG TABLET PO SCH (21:17)
[2021-09-14] MEDS: THIAMINE HCL 100 MG TABLET (FP) PO SCH (21:17)
[2021-09-15] MEDS ORDERED: methaDONE HCL 40 MG DISPERSABLE TABLET ONE (06:53)
[2021-09-15] MEDS ORDERED: methaDONE HCL 10 MG TABLET ONE (06:53)
[2021-09-15] MEDS: PANTOPRAZOLE 20 MG TABLET PO SCH (09:43)
[2021-09-15] MEDS: BUDESONIDE/FORMETEROL FUMARATE 80/4.5 mcg INHALER IH SCH ×2 (09:43→21:03)
[2021-09-15] MEDS: HYDROCHLOROTHIAZIDE 12.5 MG CAPSULE (FP) PO SCH (09:43)
[2021-09-15] MEDS: PRENATAL VITAMINS W/ FOLIC ACID TABLET (FP) PO SCH (09:43)
[2021-09-15] MEDS: TIOTROPIUM BROMIDE 2.5 MCG (SPIRIVA) RESPIMAT INHALER IH SCH (09:44)
[2021-09-15] MEDS: BICTEGRAV/EMTRICIT/TENOFOV (BIKTARVY) 50-200-25 MG TABLET PO SCH ×2 (09:44→10:59)
[2021-09-15] MEDS: NICOTINE 21 MG/24 HOURS TOPICAL PATCH TD SCH (09:44)
[2021-09-15] MEDS: THIAMINE HCL 100 MG TABLET (FP) PO SCH (21:03)
[2021-09-15] MEDS: QUEtiapine FUMARATE 25 MG TABLET PO SCH (21:03)
[2021-09-15] MEDS: MELATONIN 5 MG TABLETS PO SCH (21:03)
[2021-09-16] MEDS ORDERED: methaDONE HCL 40 MG DISPERSABLE TABLET ONE (03:57)
[2021-09-16] MEDS ORDERED: methaDONE HCL 10 MG TABLET ONE (03:57)
[2021-09-16] MEDS: BICTEGRAV/EMTRICIT/TENOFOV (BIKTARVY) 50-200-25 MG TABLET PO SCH (08:13)
[2021-09-16] MEDS: TIOTROPIUM BROMIDE 2.5 MCG (SPIRIVA) RESPIMAT INHALER IH SCH (09:59)
[2021-09-16] MEDS: BUDESONIDE/FORMETEROL FUMARATE 80/4.5 mcg INHALER IH SCH ×2 (09:59→21:29)
[2021-09-16] MEDS: PRENATAL VITAMINS W/ FOLIC ACID TABLET (FP) PO SCH (09:59)
[2021-09-16] MEDS: PANTOPRAZOLE 20 MG TABLET PO SCH (09:59)
[2021-09-16] MEDS: HYDROCHLOROTHIAZIDE 12.5 MG CAPSULE (FP) PO SCH (09:59)
[2021-09-16] MEDS: NICOTINE 21 MG/24 HOURS TOPICAL PATCH TD SCH (10:00)
[2021-09-16] MEDS: MELATONIN 5 MG TABLETS PO SCH (21:29)
[2021-09-16] MEDS: QUEtiapine FUMARATE 25 MG TABLET PO SCH (21:29)
[2021-09-16] MEDS: THIAMINE HCL 100 MG TABLET (FP) PO SCH (21:29)
[2021-09-17] MEDS ORDERED: methaDONE HCL 10 MG TABLET ONE (04:12)
[2021-09-17] MEDS ORDERED: methaDONE HCL 40 MG DISPERSABLE TABLET ONE (04:12)
[2021-09-17] MEDS: BICTEGRAV/EMTRICIT/TENOFOV (BIKTARVY) 50-200-25 MG TABLET PO SCH (07:21)
[2021-09-17] MEDS: TIOTROPIUM BROMIDE 2.5 MCG (SPIRIVA) RESPIMAT INHALER IH SCH (10:51)
[2021-09-17] MEDS: PRENATAL VITAMINS W/ FOLIC ACID TABLET (FP) PO SCH (10:51)
[2021-09-17] MEDS: NICOTINE 21 MG/24 HOURS TOPICAL PATCH TD SCH (10:52)
[2021-09-17] MEDS: HYDROCHLOROTHIAZIDE 12.5 MG CAPSULE (FP) PO SCH (10:52)
[2021-09-17] MEDS: PANTOPRAZOLE 20 MG TABLET PO SCH (10:52)
[2021-09-17] MEDS: BUDESONIDE/FORMETEROL FUMARATE 80/4.5 mcg INHALER IH SCH ×2 (10:52→22:07)
[2021-09-17] MEDS: QUEtiapine FUMARATE 25 MG TABLET PO SCH (21:04)
[2021-09-17] MEDS: MELATONIN 5 MG TABLETS PO SCH (21:04)
[2021-09-17] MEDS: THIAMINE HCL 100 MG TABLET (FP) PO SCH (21:04)
[2021-09-18] MEDS ORDERED: methaDONE HCL 40 MG DISPERSABLE TABLET ONE (04:03)
[2021-09-18] MEDS ORDERED: methaDONE HCL 10 MG TABLET ONE (04:03)
[2021-09-18] MEDS: BICTEGRAV/EMTRICIT/TENOFOV (BIKTARVY) 50-200-25 MG TABLET PO SCH (07:03)
[2021-09-18] MEDS: PANTOPRAZOLE 20 MG TABLET PO SCH (10:40)
[2021-09-18] MEDS: TIOTROPIUM BROMIDE 2.5 MCG (SPIRIVA) RESPIMAT INHALER IH SCH (10:40)
[2021-09-18] MEDS: PRENATAL VITAMINS W/ FOLIC ACID TABLET (FP) PO SCH (10:40)
[2021-09-18] MEDS: NICOTINE 21 MG/24 HOURS TOPICAL PATCH TD SCH (10:40)
[2021-09-18] MEDS: HYDROCHLOROTHIAZIDE 12.5 MG CAPSULE (FP) PO SCH (10:40)
[2021-09-18] MEDS: BUDESONIDE/FORMETEROL FUMARATE 80/4.5 mcg INHALER IH SCH ×2 (10:40→21:10)
[2021-09-18] MEDS: MELATONIN 5 MG TABLETS PO SCH (21:09)
[2021-09-18] MEDS: THIAMINE HCL 100 MG TABLET (FP) PO SCH (21:10)
[2021-09-18] MEDS: QUEtiapine FUMARATE 25 MG TABLET PO SCH (21:10)
[2021-09-19] MEDS ORDERED: methaDONE HCL 10 MG TABLET ONE (04:05)
[2021-09-19] MEDS ORDERED: methaDONE HCL 40 MG DISPERSABLE TABLET ONE (04:05)
[2021-09-19] MEDS: BICTEGRAV/EMTRICIT/TENOFOV (BIKTARVY) 50-200-25 MG TABLET PO SCH (07:03)
[2021-09-19] MEDS: NICOTINE 21 MG/24 HOURS TOPICAL PATCH TD SCH (10:26)
[2021-09-19] MEDS: PRENATAL VITAMINS W/ FOLIC ACID TABLET (FP) PO SCH (10:26)
[2021-09-19] MEDS: HYDROCHLOROTHIAZIDE 12.5 MG CAPSULE (FP) PO SCH (10:26)
[2021-09-19] MEDS: TIOTROPIUM BROMIDE 2.5 MCG (SPIRIVA) RESPIMAT INHALER IH SCH (10:27)
[2021-09-19] MEDS: BUDESONIDE/FORMETEROL FUMARATE 80/4.5 mcg INHALER IH SCH ×2 (10:27→21:51)
[2021-09-19] MEDS: PANTOPRAZOLE 20 MG TABLET PO SCH (10:27)
[2021-09-19] MEDS: MAG HYDROX/AL HYDROX/SIMETH 30 ML UNIT-DOSE CUP PO PRN (20:27)
[2021-09-19] MEDS: QUEtiapine FUMARATE 25 MG TABLET PO SCH (21:50)
[2021-09-19] MEDS: THIAMINE HCL 100 MG TABLET (FP) PO SCH (21:50)
[2021-09-19] MEDS: MELATONIN 5 MG TABLETS PO SCH (21:51)
[2021-09-20] MEDS ORDERED: methaDONE HCL 40 MG DISPERSABLE TABLET ONE (04:08)
[2021-09-20] MEDS ORDERED: methaDONE HCL 10 MG TABLET ONE (04:08)
[2021-09-20] MEDS: BICTEGRAV/EMTRICIT/TENOFOV (BIKTARVY) 50-200-25 MG TABLET PO SCH (07:07)
[2021-09-20 07:18] VITALS: BP 112/72; PULSE 70; TEMP 98.4
[2021-09-20] MEDS: PRENATAL VITAMINS W/ FOLIC ACID TABLET (FP) PO SCH (10:01)
[2021-09-20] MEDS: PANTOPRAZOLE 20 MG TABLET PO SCH (10:01)
[2021-09-20] MEDS: HYDROCHLOROTHIAZIDE 12.5 MG CAPSULE (FP) PO SCH (10:02)
[2021-09-20] MEDS: NICOTINE 21 MG/24 HOURS TOPICAL PATCH TD SCH (10:02)
[2021-09-20] MEDS: BUDESONIDE/FORMETEROL FUMARATE 80/4.5 mcg INHALER IH SCH (10:03)
[2021-09-20] MEDS: TIOTROPIUM BROMIDE 2.5 MCG (SPIRIVA) RESPIMAT INHALER IH SCH (10:03)
== END 2021-09-20 10:10 | disposition home or self-care (01) | DRG 772 ==
LOC: YASAS 16:45 → Y5N 22:09
PROVIDERS: ADMIT Allergy & Immunology; ATTEND Psychiatry & Neurology Pain Medicine
PROC: HZ42ZZZ Group Counseling for Substance Abuse Treatment, Cognitive-Behavioral (ICD-10-PCS; principal; 2021-08-30)
DX: F14.20 Cocaine dependence, uncomplicated (principal); F11.20 Opioid dependence, uncomplicated; F10.20 Alcohol dependence, uncomplicated; F12.20 Cannabis dependence, uncomplicated; F17.210 Nicotine dependence, cigarettes, uncomplicated; F34.1 Dysthymic disorder; Z21 Asymptomatic human immunodeficiency virus [HIV] infection status; I10 Essential (primary) hypertension; J45.20 Mild intermittent asthma, uncomplicated; K21.9 Gastro-esophageal reflux disease without esophagitis; G47.00 Insomnia, unspecified; Z86.19 Personal history of other infectious and parasitic diseases; Z88.0 Allergy status to penicillin; Z91.013 Allergy to seafood
CPT/HCPCS: 36415; 80053; 81003; 85027; 86780; 86803; 87522; C9803-CS; U0003; U0005